=== PATIENT | female | born 1990 | race Caucasian/White ===

== ENCOUNTER 2017-07-08 08:38 | Emergency (ER) | payer MEDICAID ==
[~2017-07-08 08:38] MED LIST: ACHD5005 PO; FRS325T PO; IBP600T1 PO; IBUP-1773 PO; PREN-53 PO; PREN1TAB19 PO
== END 2017-07-08 09:56 | disposition left against medical advice (07) ==
LOC: EDUNIT# 08:38 → ER 08:40
DX: S61.411D Laceration without foreign body of right hand, subsequent encounter (principal); X58.XXXD Exposure to other specified factors, subsequent encounter

== ENCOUNTER 2018-01-31 19:13 | Emergency (ER) | payer MEDICAID ==
[~2018-01-31] VITALS: Ht 157.5 cm; Wt 59.0 kg
[2018-01-31] MEDS ORDERED: AMOX500C2 PO (19:17)
[2018-01-31] MEDS ORDERED: NAPR-915 PO (19:17)
--- NOTE | 2018-01-31 19:17 | ED EENT ---
History of Present Illness General Stated Complaint: DENTAL PAIN Source: patient Exam Limitations: no limitations History of Present Illness Date Seen by Provider: Jan 31, 2018 Time Seen by Provider: 19:23 Initial Comments To ER with right upper and right lower dental pain for 3 days duration without known cause. She sees dentist Dr. Hinson but has been unable to see him or contact him for this. She took 4 Excedrin at home and her mother gave her hydrocodone, she still has intolerable pain. No fevers chills or swelling. Timing/Duration: gradual Severity: moderate Location: mouth Associated Symptoms: tooth pain Allergies and Home Medications Allergies Coded Allergies: No Known Drug Allergies (Unverified , 06/13/11) Home Medications Amoxicillin 500 Mg Capsule, 500 MG PO TID Prescribed by: BARB CHILDS on 01/31/181916 Ibuprofen 600 Mg Tablet, 600 MG PO Q6H Prescribed by: MONTANA SHELDON on 05/03/15 1312 Naproxen 500 Mg Tablet, 500 MG PO BID Prescribed by: BARB CHILDS on 01/31/181916 Lls078/Iron Fumarate/FA/Dss 1 Each Tablet, 1 EACH PO DAILY, (Reported) Patient Home Medication List Home Medication List Reviewed: Yes Review of Systems Review of Systems Constitutional: see HPI Eyes: No Symptoms Reported Ears: No Symptoms Reported Nose: no symptoms reported Mouth: see HPI Throat: no symptoms reported Respiratory: no symptoms reported Cardiovascular: no symptoms reported Musculoskeletal: no symptoms reported Skin: no symptoms reported Neurological: No Symptoms Reported Hematologic/Lymphatic: No Symptoms Reported Immunological/Allergic: no symptoms reported Past Npkrhfy-Wltaav-Jekdqd Hx Patient Social History Recent Foreign Travel: No Contact w/Someone Who Travel: No Immunizations Up To Date Tetanus Booster (TDap): Less than 5yrs PED Vaccines UTD: Yes Seasonal Allergies Seasonal Allergies: No Past Medical History Currently Using CPAP: No Currently Using BIPAP: No Reproductive Disorders: No Female Reproductive Disorders: Denies Sexually Transmitted Disease: No HIV/AIDS: No Depression Eczema Adverse Reaction/Blood Tranf: No Family Medical History Alcoholism 19 FATHER Arthritis 19 MOTHER Asthma G8 BROTHER Cardiovascular disease G8 BROTHER (MURMUR) Diabetes mellitus 19 MOTHER Headache disorder G8 BROTHER Hypercholesterolemia 19 FATHER Hypertension 19 MOTHER Psychosocial problem 19 FATHER 19 MOTHER G8 BROTHER Respiratory disorder 19 MOTHER Severe allergy 19 MOTHER Visual disorder G8 BROTHER No Pertinent Family Hx Physical Exam Vital Signs Vital Signs - First Documented 01/31/18 19:19 Temp 97.3 Pulse 79 Resp 17 B/P (MAP) 108/70 (83) Height, Weight, BMI Height: 5'2.00" Weight: 147lbs. 4.0oz. 66.744257iq; BMI Method:Stated General Appearance: WD/WN, no apparent distress Eyes: bilateral eye normal inspection, bilateral eye PERRL, bilateral eye EOMI Ears: bilateral ear auricle normal, bilateral ear canal normal, bilateral ear TM normal Mouth/Throat: normal mouth inspection; No mandibular swelling, No maxillary swelling, No tonsillar swelling, No uvula swelling Neck: non-tender, full range of motion Respiratory: no respiratory distress, no accessory muscle use Neurologic/Psychiatric: alert, normal mood/affect, oriented x 3 Skin: normal color, warm/dry Progress/Results/Core Measures Results/Orders My Orders Orders - BARB CHILDS APRN Lidocaine/Epi 1% 1:100,000 (Xylocaine /E (01/31/18 19:30) Bupivacaine 0.5% Injection (Sensorcaine (01/31/18 19:30) Lidocaine/Epi 2% 1:100,000 (Xylocaine/Ep (01/31/18 19:30) Medications Given in ED Current Medications Medications Dose Ordered Sig/Hesham Route Start Time Stop Time Status Last Admin Dose Admin Bupivacaine HCl 1 ml ONCE ONCE INJ 01/31/18 19:30 18 19:31 DC 01/31/18 19:30 1 ML Lidocaine/ Epinephrine 2 ml ONCE ONCE INJ 01/31/18 19:30 01/31/18 19:31 DC 01/31/18 19:30 2 ML Vital Signs/I&O 18 19:19 Temp 97.3 Pulse 79 Resp 17 B/P (MAP) 108/70 (83) Departure Communication (Admissions) 193-Right Supraperiosteal nerve block using 2ml of mixture 50:50 of lidocaine 2 % with epi and 0.5% marcaine superior to tooth number 1 & 2 which are carious but without swelling to suggest drainable abscess, Right inferior alveolar nerve block with the same. . Impression Primary Impression: Pain, dental Disposition: 01 HOME, SELF-CARE Condition: Stable Departure-Patient Inst. Decision time for Depature: 19:16 Referrals: [facility] (PCP) Primary Care Physician JANE BLAIR APRN (Family) Primary Care Physician Patient Instructions: Dental Pain Add. Discharge Instructions: 1. Antibiotic as directed 2. Pain medication as directed 3. Follow-up with your dentist as soon as possible. Return to ER for any concerns. Scripts Naproxen (Naproxen) 500 Mg Tablet 500 MG PO BID, #20 TAB Prov: BARB CHILDS APRN 01/31/18 Amoxicillin (Amoxicillin) 500 Mg Capsule 500 MG PO TID, #21 CAP Prov: BARB CHILDS APRN 01/31/18 Images Mouth/Nose 1 - Caries, Tenderness 2 - Caries BARB CHILDS APRN Jan 31, 2018 19:17
--- OUTSIDE RECORDS SUMMARY | 2018-01-31 19:18 | XMS REPORT ---
Author Author BLAIRJANE Hayes Organization [facility] Address [address] [place] [address] Care Team Providers Care Channel Marketing Specialist Name Role Phone JANE BLAIR Unavailable PROBLEMS Type Condition ICD9-CM Code BRH30-PK Code Onset Dates Condition Status SNOMED Code Problem Abnormal TSH R79.89 Active 475442901 Problem History of anemia Z86.2 Active 625463719 Problem Moderate single current episode of major depressive disorder F32.1 Active 83818091 Problem Other spondylosis with myelopathy, cervical region M47.12 Active 18724628 Problem Other chronic pain G89.29 Active 80829309 Problem Chronic fatigue R53.82 Active 69357679 ALLERGIES No Information ENCOUNTERS Encounter Location Date Diagnosis [place] [id number] [address] Jan, [facility] [address] [address] Jan, [place] [address] [address] Dec, [place] [address] [place] [id number] [place] [address] Dec, [facility] [address] [address] Dec, Abnormal TSH R79.89 [facility] [address] [address] Nov, [place] [address] [address] Nov, Bee sting, accidental or unintentional, initial encounter T63.441A [place] [address] [address] Nov, Abnormal TSH R79.[address] [address] Oct, Moderate single current episode of major depressive disorder F32.1 ; History of anemia Z86.2 and Chronic fatigue R53.82 [place] [address] [address] Oct, [place] [address] [address] Oct, Moderate single current episode of major depressive disorder F32.1 ; History of anemia Z86.2 ; Nausea R11.0 ; Chronic fatigue R53.82 ; Other chronic pain G89.29 and Pain in left shoulder M25.512 [facility] [address] [address] Oct, Right foot pain M79.671 [facility] [address] [place] [address] September, Urticaria L50.9 [facility] [address] [address] September, Allergic contact dermatitis due to plants, except food L23.7 [facility] [address] [address] September, Allergic contact dermatitis due to plants, except food L23.7 [facility] [address] [place] [address] Aug, [facility] [address] [address] Jun, Bronchitis J40 [facility] [address] [address] May, Fever, unspecified fever cause R50.9 and Influenza A J10.[address] [address] Apr, [facility] [address] [place] [id number] [place] [address]- [address] Apr, [place] [address] [place] [id number] [place] [address] 82584- 8754 Apr, Routine gynecological examination Z01.419 [place] [address] [place] [id number] [place] [address]- 26[address] Feb, Allergic contact dermatitis due to plants, except food L23.7 [place] [address] [place] [id number] [place] [address] Dec, Diarrhea of presumed infectious origin A09 ; Bilious vomiting with nausea R11.14 and 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 [facility] [address] [place] [id number] [place] [address] 14 Nov, 2016 Insect bite (nonvenomous) of left upper arm, initial encounter S40.862A and Left arm cellulitis L03.114 [place] [address] [place] [id number] [place] [address]- [address] Oct, [place] [address] [place] [id number] [place] [address] 9[address]91- 6710 15 Oct, 2016 Pain of left upper extremity M79.602 ; Anesthesia of skin R20.0 and Neck pain on left side M54.2 [place] [address] [place] [id number] [place] [address]- 120[address] Oct, [place] [address] [place] [id number] [place] [address]- [address] September, [place] [address] [place] [id number] [place] [address]- [address] September, Other spondylosis with myelopathy, cervical region M47.12 [place] [address] [place] [id number] [place] [address]- 9[address] Aug, Mixed emotional features as adjustment reaction F43.23 ; Attention deficit hyperactivity disorder (ADHD), combined type F90.2 and Moderate single current episode of major depressive disorder F32.1 [facility] [address] [address] 12 Aug, 2016 Moderate single current episode of major depressive disorder F32.1 and 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 [facility] [address] [address] Aug, Mixed emotional features as adjustment reaction F43.23 and Attention deficit hyperactivity disorder (ADHD), combined type F90.2 [facility] [address] [address] Aug, Mixed emotional features as adjustment reaction F43.23 and Attention deficit hyperactivity disorder (ADHD), combined type F90.2 [place] [address] [place] [id number] [place] [address] 23585- 8657 Jul, Attention deficit hyperactivity disorder (ADHD), combined type F90.2 and Mixed emotional features as adjustment reaction F43.23 [facility] [address] [address] Mar, [facility] [address] [place] [id number] [place] [address] 94951- 8581 Mar, [facility] [id number] [place] [address] 53059- 9814 Mar, Attention deficit hyperactivity disorder (ADHD), combined type F90.2 [place] [address] [place] [id number] [place] [address] 8[address]67- 0181 Nov, Dental examination Z01.20 [facility] [address] [place] [id number] [place] [address] 9[address]94- 3[address] Nov, [place] [address] [place] [id number] [place] [address]19- [address] Oct, Well woman exam with routine gynecological exam Z01.419 ; Vaginal discharge N89.8 ; Encounter for counseling regarding contraception Z30.9 and Screening breast examination Z12.39 [facility] [address] [address] Oct, Diarrhea, unspecified type R19.7 ; Dysuria R30.0 ; Nausea R11.0 and Periumbilical abdominal pain R10.33 [facility] [address] [address] Oct, [facility] [address] [place] [id number] [place] [address] 08[address]- 9576 Oct, [facility] [address] [place] [id number] [place] [address] 28647- 6961 Oct, Mixed emotional features as adjustment reaction F43.23 and Attention deficit disorder F90.0 [facility] [address] [place] [id number] [place] [address] 39699- 1861 Oct, [facility] [address] [place] [id number] [place] [address] 46149- 7070 Aug, Mixed emotional features as adjustment reaction F43.23 and Attention deficit disorder F90.0 [facility] [address] [place] [id number] [place] [address] 7[address]- 1906 Aug, Mixed emotional features as adjustment reaction F43.23 ; Attention deficit disorder F90.0 and Wellness examination Z00.00 [facility] [address] [place] [id number] [place] [address]30- 0262 Aug, Mixed emotional features as adjustment reaction F43.23 and Attention deficit disorder F90.0 [facility] [address] [place] [address]- 2935 Jul, Mixed emotional features as adjustment reaction F43.23 [facility] [address] [place] [id number] [place] [address] 81280- 3398 Jul, Mixed emotional features as adjustment reaction F43.23 [facility] [address] [place] [id number] [place] [address] 88678- 9435 Jun, Anxiety disorder, unspecified F41.9 [facility] [address] [place] [id number] [place] [address] 07251- 1385 May, Pain in thoracic spine M54.6 [facility] [address] [place] [id number] [place] [address] 47789- 6676 Feb, Allergy, unspecified, initial encounter T78.40XA [facility] [address] [place] [id number] [place] [address]26- 4[address] Jan, [facility] [address] [address] Jan, Environmental allergies V15.09 [facility] [address] [address]- [address] Jan, Common cold 460 [facility] [address] [place] [id number] [place] [address] 75255- 9026 Oct, Shoulder pain, left 719.41 and 12 weeks gestation of V22.2 [facility] [address] [address]- [address] September, test positive V72.42 [facility] [address] [place] [id number] [place] [address] 49320- 9081 Aug, [facility] [address] [place] [id number] [place] [address] 16802- 6585 Aug, [facility] [address] [place] [id number] [place] [address] 92707- 9130 Mar, [facility] [address] [place] [id number] [place] [address] 30689- 7084 Mar, [facility] [address] [place] [id number] [place] [address] 85213- 8095 Feb, [facility] [address] [place] [id number] [place] [address] 18522- 1296 Feb, [facility] [address] [place] [id number] [place] [address] 06645- 4804 Nov, [facility] [address] [place] [id number] [place] [address]- [address] Nov, [facility] [address] [id number] [place] [address]- 0644 Oct, [facility] [place] [facility] [address] [id number] [place] [address]- 1129 Oct, [facility] [address] [id number] [place] [address]- 5915 Oct, [facility] [place] [facility] [address] [id number] [place] [address]- 3297 Oct, [facility] [address] [id number] [place] [address]- 9795 September, [facility] [address] [id number] [place] [address]- 4770 September, [facility] [address] [id number] [place] [address]- 2243 September, [facility] [address] [id number] [place] [address]- 7722 September, [facility] [place] [facility] [address] [id number] [place] [address]- 7737 Aug, [facility] [address] [id number] [place] [address]- 4644 Aug, [facility] [place] [facility] [address] [id number] [place] [address]- 2567 Aug, [facility] [place] [facility] [address] [id number] [place] [address]- 9119 Aug, [facility] [place] [facility] [address] [id number] [place] [address]- 2770 Aug, [facility] [place] [facility] [address] [id number] [place] [address]- 4474 Aug, [facility] [place] [facility] [address] [id number] [place] [address]- 6498 Aug, [facility] [place] [facility] [address] [id number] [place] [address]- 4423 Aug, [facility] [place] [facility] [address] [id number] [place] [address]- 8828 Jul, [facility] [place] [facility] [address] [id number] [place] [address]- 1620 Jul, [facility] [place] [facility] [address] [id number] [place] [address]- 2296 Aug, [facility] [place] [facility] [address] [id number] [place] [address]- 6117 Jun, [facility] [place] [facility] [address] [id number] [place] [address]- 5807 May, [facility] [place] [facility] [address] [id number] [place] [address]- 0353 Nov, [facility] [place] [facility] [address] [id number] [place] [address]- 2707 Nov, [facility] [place] [facility] [address] [id number] [place] [address]- 1162 Nov, [facility] [place] [facility] [address] [id number] [place] [address]- 9517 September, [facility] [place] [facility] [address] [id number] [place] [address]- 6734 Aug, [facility] [place] [facility] [address] [id number] [place] [address]- 5313 Aug, [facility] [place] [facility] [address] [id number] [place] [address]- 4749 Jun, [facility] [place] [facility] [address] [id number] [place] [address]- 1106 Apr, [facility] [place] [facility] [address] [id number] [place] [address]- 7904 Apr, [facility] [place] [facility] [address] [id number] [address]- 1548 Apr, [facility] [place] [facility] [address] [id number] [place] [address]- 3279 30 Mar, 2011 [facility] [place] [facility] [address] [facility] [id number] [address]- 8558 16 Mar, 2011 [facility] [place] [facility] [address] [facility] [id number] [place] [address]- 2224 08 Mar, 2011 [facility] [place] [facility] [address] [id number] [place] [address], [place] [address]- 8442 31 Feb, 2011 [facility] [place] [facility] [address] [facility] [id number] [place] [address], [place] [address]- 7583 11 Feb, 2011 [facility] [place] [facility] [address] [facility] [id number] [place] [address]- 6444 10 Feb, 2011 [facility] [place] [facility] [address] [place] [address] 18007- 1656 14 Jan, 2011 [facility] [place] [facility] [address] [facility] [id number], [place] [address]- 3531 May, [facility] [place] [facility] [address] [place] [id number] [address]- [address] 07 Apr, 2009 [facility] [place] [facility] [address] [place] [id number] [address]- 7050 Apr, [facility] [place] [facility] [address] [facility] [id number], [place] [address]- 5039 Mar, [facility] [place] [facility] [address] [facility] [id number], [place] [address]- 4563 Mar, [facility] [place] [facility] [address] [facility] [id number], [place] [address]- 6495 04 Mar, 2009 [facility] [place] [facility] [address] [facility] [id number] [address]- 5873 29 Feb, 2009 [facility] [place] [facility] [address] [facility] [id number], [place] [address]- 1137 29 Feb, 2009 [facility] [place] [facility] [address] [facility] [id number] [place] [address]- 8997 Feb, [facility] [address] [facility] [id number] [place] [address]- 8723 Feb, [facility] [address] [facility] [id number] [place] [address]- 3650 14 Feb, 2009 IMMUNIZATIONS No Known Immunizations SOCIAL HISTORY Never Assessed REASON FOR VISIT Requests return call PLAN OF CARE VITAL SIGNS MEDICATIONS Unknown Medications RESULTS No Results PROCEDURES No Known procedures INSTRUCTIONS MEDICATIONS ADMINISTERED No Known Medications MEDICAL (GENERAL) HISTORY Type Description Date Medical History Heart Murmur Medical History Winter Eczema Medical History Anemia Medical History Left shoulder injury Medical History depression Medical History Attention deficit disorder Surgical History wisdom teeth extraction Hospitalization History of daughter 09/2012 Hospitalization History 05/02/2015
--- OUTSIDE RECORDS SUMMARY | 2018-01-31 19:18 | XMS REPORT ---
Author Author BLAIRJANE Hayes Organization [facility] Address [address] [place] [address] Care Team Providers Care Quill Skinner Name Role Phone JANE BLAIR Unavailable PROBLEMS Type Condition ICD9-CM Code EZO32-DI Code Onset Dates Condition Status SNOMED Code Problem Abnormal TSH R79.89 Active 182474629 Problem History of anemia Z86.2 Active 072101696 Problem Moderate single current episode of major depressive disorder F32.1 Active 44165984 Problem Other spondylosis with myelopathy, cervical region M47.12 Active 14534346 Problem Other chronic pain G89.29 Active 21690912 Problem Chronic fatigue R53.82 Active 81470777 ALLERGIES Substance Reaction Event Type Date Status Celexa nausea Drug Allergy Nov, Active Adderall hallucinations Drug Allergy Nov, Active ENCOUNTERS Encounter Location Date Diagnosis [place] [address] [place] [id number] [place] [address]78- 1211 Jan, [place] [address] [address] Dec, [place] [id number] [place] [address] 72200- 9901 Dec, [facility] [id number] [place] [address] 87876- 7829 Dec, Abnormal TSH R79.89 [facility] [id number] [place] [address] 98935- 2407 Nov, [place] [address] [address] Nov, Bee sting, accidental or unintentional, initial encounter T63.441A [place] [address] [address]168- [address]309 Nov, Abnormal TSH R79.[address] [address]- 3467 Oct, Moderate single current episode of major depressive disorder F32.1 ; History of anemia Z86.2 and Chronic fatigue R53.82 [place] [address] [address]- 2879 Oct, [address] 6[address]- 6103 Oct, Moderate single current episode of major depressive disorder F32.1 ; History of anemia Z86.2 ; Nausea R11.0 ; Chronic fatigue R53.82 ; Other chronic pain G89.29 and Pain in left shoulder M25.512 [facility] [address] [address] Oct, Right foot pain M79.671 [facility] [address] [place] [address]08 [address] September, Urticaria L50.9 [facility] [address] [address] September, Allergic contact dermatitis due to plants, except food L23.7 [facility] [address] [address] September, Allergic contact dermatitis due to plants, except food L23.7 [facility] [address] [place] [address]916 -7142 Aug, [facility] [address] [place] [address]49 -3279 Jun, Bronchitis J40 [facility] [address] [place] [address]2077 -[address]21 May, Fever, unspecified fever cause R50.9 and Influenza A J10.[address] 91624- 6305 Apr, [facility] [id number] [place] [address] 82871- 1665 Apr, [place] [id number] [place] [address] 19756- 7949 Apr, Routine gynecological examination Z01.419 [place] [id number] [place] [address] 58297- 8361 Feb, Allergic contact dermatitis due to plants, except food L23.7 [place] [id number] [place] [address] 29975- 2018 Dec, Diarrhea of presumed infectious origin A09 ; Bilious vomiting with nausea R11.14 and 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 [facility] [id number] [place] [address]30 [address]9642 14 Nov, 2016 Insect bite (nonvenomous) of left upper arm, initial encounter S40.862A and Left arm cellulitis L03.114 [place] [id number] [place] [address] 31758- 4874 Oct, [place] [id number] [place] [address] 06630- 8549 Oct, Pain of left upper extremity M79.602 ; Anesthesia of skin R20.0 and Neck pain on left side M54.2 [place] [id number] [place] [address] 36022- 6717 Oct, [place] [id number] [place] [address] 10537- 5662 September, [place] [id number] [place] [address] 87461- 1736 September, Other spondylosis with myelopathy, cervical region M47.12 [place] [id number] [place] [address] 15766- 8708 Aug, Mixed emotional features as adjustment reaction F43.23 ; Attention deficit hyperactivity disorder (ADHD), combined type F90.2 and Moderate single current episode of major depressive disorder F32.1 [facility] [address] [address] 12 Aug, 2016 Moderate single current episode of major depressive disorder F32.1 and 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 [facility] [address], [place] [address] Aug, Mixed emotional features as adjustment reaction F43.23 and Attention deficit hyperactivity disorder (ADHD), combined type F90.2 [facility] [address] [place] [address] 35[address] Aug, Mixed emotional features as adjustment reaction F43.23 and Attention deficit hyperactivity disorder (ADHD), combined type F90.2 [facility] [address], [place] [address] Jul, Attention deficit hyperactivity disorder (ADHD), combined type F90.2 and Mixed emotional features as adjustment reaction F43.23 [facility] [address] [place] [address] Mar, [facility] [id number] [place] [address] 43856- 5870 Mar, [facility] [address], [place] [address]- 6706 Mar, Attention deficit hyperactivity disorder (ADHD), combined type F90.2 [facility] [address], [place] [address] 18[address] Nov, Dental examination Z01.20 [facility] [address], [place] [address] 8[address] Nov, [facility] [id number] [address] Oct, Well woman exam with routine gynecological exam Z01.419 ; Vaginal discharge N89.8 ; Encounter for counseling regarding contraception Z30.9 and Screening breast examination Z12.39 [facility] [id number] [address] Oct, Diarrhea, unspecified type R19.7 ; Dysuria R30.0 ; Nausea R11.0 and Periumbilical abdominal pain R10.33 [facility] [id number] [place] [address] 12592- 8830 Oct, [facility] [id number] [place] [address] 08083- 3258 Oct, [facility] [id number] [place] [address] 71295- 5947 Oct, Mixed emotional features as adjustment reaction F43.23 and Attention deficit disorder F90.0 [place] [id number] [place] [address] 84531- 1149 Oct, [facility] [id number] [place] [address] 95940- 2093 Aug, Mixed emotional features as adjustment reaction F43.23 and Attention deficit disorder F90.0 [facility] [id number] [place] [address] 87657- 2900 Aug, Mixed emotional features as adjustment reaction F43.23 ; Attention deficit disorder F90.0 and Wellness examination Z00.00 [facility] [address] [place] [address] 16236- 5566 Aug, Mixed emotional features as adjustment reaction F43.23 and Attention deficit disorder F90.0 [facility] [id number] [place] [address] 60036- 8514 Jul, Mixed emotional features as adjustment reaction F43.23 [facility] [id number] [place] [address] 07169- 0269 Jul, Mixed emotional features as adjustment reaction F43.23 [facility] [address] [place] [address] 62717- 7201 Jun, Anxiety disorder, unspecified F41.9 [facility] [id number] [place] [address] 09629- 3586 May, Pain in thoracic spine M54.6 [facility] [id number] [place] [address] 06933- 3262 Feb, Allergy, unspecified, initial encounter T78.40XA [facility] [id number] [place] [address] 27562- 0703 Jan, [facility] [address] 20150- 0294 Jan, Environmental allergies V15.09 [facility] [id number] [place] [address] 85952- 6178 Jan, Common cold 460 [facility] [address] 39422- 1516 Oct, Shoulder pain, left 719.41 and 12 weeks gestation of V22.2 [facility] [address] 63203- 3535 September, test positive V72.42 [facility] [id number] [place] [address] 73121- 0725 Aug, [facility] [id number] [place] [address] 52086- 3379 Aug, [facility] [id number] [place] [address] 45601- 7915 Mar, [facility] [id number] [place] [address] 83984- 5187 Mar, [facility] [id number] [place] [address] 57554- 8363 Feb, [facility] [id number] [place] [address] 56455- 3865 Feb, [facility] [id number] [place] [address] 46299- 5780 Nov, [facility] [id number] [place] [address] 70291- 7622 Nov, [facility] [place] [facility] [address] [id number] [place] [address]- 2442 Oct, [facility] [place] [facility] [address] [id number] [place] [address]- 6095 Oct, [facility] [place] [facility] [address] [id number] [place] [address]- 3770 Oct, [facility] [place] [facility] [address] [id number] [place] [address]- 0630 Oct, [facility] [place] [facility] [address] [id number] [place] [address]- 5917 September, [facility] [place] [facility] [address] [id number] [place] [address]- 3587 September, [facility] [place] [facility] [address] [id number] [place] [address]- 8858 September, [facility] [place] [facility] [address] [id number] [place] [address]- 6919 September, [facility] [place] [facility] [address] [id number] [place] [address]- 9223 Aug, [facility] [place] [facility] [address] [id number] [place] [address]- 9032 Aug, [facility] [place] [facility] [address] [id number] [place] [address]- 2415 Aug, [facility] [place] [facility] [address] [id number] [place] [address]- 4331 Aug, [facility] [place] [facility] [address] [id number] [place] [address]- 0565 Aug, [facility] [place] [facility] [address] [id number] [place] [address]- 4933 Aug, [facility] [place] [facility] [address] [id number] [place] [address]- 4216 Aug, [facility] [place] [facility] [address] [id number] [place] [address]- 2759 Aug, [facility] [place] [facility] [address] [id number] [place] [address]- 6306 Jul, [facility] [place] [facility] [address] [id number] [place] [address]- 6886 Jul, [facility] [place] [facility] [address] [id number] [place] [address]- 0967 Aug, [facility] [place] [facility] [address] [id number] [place] [address]- 2411 Jun, [facility] [place] [facility] [address] [id number] [place] [address]- 7216 May, [facility] [place] [facility] [address] [id number] [place] [address]- 5537 Nov, [facility] [place] [facility] [address] [id number] [place] [address]- 3473 Nov, [facility] [place] [facility] [address] [id number] [place] [address]- 6448 Nov, [facility] [place] [facility] [address] [id number] [place] [address]- 9179 September, [facility] [place] [facility] [address] [id number] [place] [address]- 4588 Aug, [facility] [place] [facility] [address] [id number] [place] [address]- 3446 Aug, [facility] [place] [facility] [address] [id number] [place] [address]- 2752 Jun, [facility] [place] [facility] [address] [id number] [place] [address]- 0372 Apr, [facility] [place] [facility] [address] [id number] [place] [address]- 3604 Apr, [facility] [place] [facility] [address] [id number] [place] [address]- 0531 Apr, [facility] [place] [facility] [address] [id number] [place] [address]- 8136 30 Mar, 2011 [facility] [place] [facility] [address] [id number] [place] [address]- 3352 16 Mar, 2011 [facility] [place] [facility] [address] [facility] [id number] [place] [address]- 9867 08 Mar, 2011 [facility] [place] [facility] [address] [id number] [place] [address]- 4002 31 Feb, 2011 [facility] [place] [facility] [address] [id number] [place] [address]- 4365 11 Feb, 2011 [facility] [place] [facility] [address] [id number] [place] [address]- 9695 10 Feb, 2011 [facility] [place] [facility] [address] [id number] [place] [address]- 6298 14 Jan, 2011 [facility] [place] [facility] [address] [id number], [place] [address]- 7472 May, [facility] [place] [facility] [address] [id number], [place] [address]- 1339 Apr, [facility] [place] [facility] [address] [id number], [place] [address]- 0886 Apr, [facility] [place] [facility] [address] [id number], [place] [address]- 4681 Mar, [facility] [place] [facility] [address] [id number], [place] [address]- 9953 10 Mar, 2009 [facility] [place] [facility] [address] [id number], [place] [address]- 0967 Mar, [facility] [place] [facility] [address] [facility] [id number], [place] [address]- 1991 29 Feb, 2009 [facility] [place] [facility] [address] [id number], [place] [address]- 5665 29 Feb, 2009 [facility] [place] [facility] [address] [facility] [id number] [place] [address] Feb, [facility] [address] [facility] [id number] [place] [address]- 1266 Feb, [facility] [address] [facility] [id number], [place] [address]- 3465 Feb, IMMUNIZATIONS No Known Immunizations SOCIAL HISTORY Never Assessed REASON FOR VISIT Bee sting on plantar surface of right foot occured at 12:00 today. Pt reports right foot swelling and right foot pain rated at 5. Self-treatment includes baking soda and elevation. [facility] PL[facility] OF CARE Activity Details Follow Up prn Reason:no improvement VITAL SIGNS Height 62.6 in 2017-11-12 Weight 130 lbs 2017-11-12 Temperature 98.6 degrees Fahrenheit 2017-11-12 Heart Rate 92 bpm 2017-11-12 Respiratory Rate 20 2017-11-12 BMI 23.32 kg/m2 2017-11-12 Blood pressure systolic 112 mmHg 2017-11-12 Blood pressure diastolic 74 mmHg 2017-11-12 MEDICATIONS Medication Instructions Dosage Frequency Start Date End Date Duration Status Allergy 25 MG Orally every 8 hrs 1 capsule as needed 8h Active RESULTS No Results PROCEDURES No Known procedures INSTRUCTIONS MEDICATIONS ADMINISTERED No Known Medications MEDICAL (GENERAL) HISTORY Type Description Date Medical History Heart Murmur Medical History Winter Eczema Medical History Anemia Medical History Left shoulder injury Medical History depression Medical History Attention deficit disorder Surgical History wisdom teeth extraction Hospitalization History of daughter 09/2012 Hospitalization History 05/02/2015
--- OUTSIDE RECORDS SUMMARY | 2018-01-31 19:19 | XMS REPORT ---
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 Helper Name Role Phone JANE BLAIR Unavailable PROBLEMS Type Condition ICD9-CM Code DNQ73-PK Code Onset Dates Condition Status SNOMED Code Problem Abnormal TSH R79.89 Active 459457096 Problem History of anemia Z86.2 Active 473761623 Problem Moderate single current episode of major depressive disorder F32.1 Active 72171516 Problem Other spondylosis with myelopathy, cervical region M47.12 Active 81116103 Problem Other chronic pain G89.29 Active 27869235 Problem Chronic fatigue R53.82 Active [id number] ALLERGIES No Information ENCOUNTERS Encounter Location Date Diagnosis [place] [address] [address] Jan, [place] [id number] [address] Dec, [place] [address] [address]- [address] Dec, Abnormal TSH R79.89 [place] [address] [place] [id number] [place] [address] 73829- 6066 Nov, [place] [address] [address] Nov, Bee sting, accidental or unintentional, initial encounter T63.441A [place] [address] [address]- 2104 Nov, Abnormal TSH R79.89 [place] [address] [place] [id number] [place] [address] 78231- 4636 Oct, Moderate single current episode of major depressive disorder F32.1 ; History of anemia Z86.2 and Chronic fatigue R53.82 [facility] [address] [address]- [address] Oct, [place] [address] [address]76- 0841 Oct, Moderate single current episode of major depressive disorder F32.1 ; History of anemia Z86.2 ; Nausea R11.0 ; Chronic fatigue R53.82 ; Other chronic pain G89.29 and Pain in left shoulder M25.512 [facility] [address] [place] [address]12 -1190 Oct, Right foot pain M79.671 [facility] [address] [place] [address] 69041 -8313 September, Urticaria L50.9 [facility] [address] [address] September, Allergic contact dermatitis due to plants, except food L23.7 [facility] [address] [place] [address]69 -6897 September, Allergic contact dermatitis due to plants, except food L23.7 [facility] [address] [place] [id number] [place] [address]2157 Aug, [facility] [address] [place] [address]53 -6185 Jun, Bronchitis J40 [facility] [address] [place] [address] 6[address]53 [address]0154 May, Fever, unspecified fever cause R50.9 and Influenza A J10.[address] [address]- [address] Apr, [address] 63967- 6294 Apr, [address] 16103- 5325 Apr, Routine gynecological examination Z01.419 [place] [address] [place] [id number] [place] [address] 39085- 7621 Feb, Allergic contact dermatitis due to plants, except food L23.7 [place] [address] [place] [id number] [place] [address] 74978- 5965 Dec, Diarrhea of presumed infectious origin A09 ; Bilious vomiting with nausea R11.14 and 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 [facility] [address] [place] [id number] [place] [address]656 -5628 Nov, Insect bite (nonvenomous) of left upper arm, initial encounter S40.862A and Left arm cellulitis L03.114 [place] [address] [place] [id number] [place] [address]23- 9450 Oct, [address] [address]- [address]36 Oct, Pain of left upper extremity M79.602 ; Anesthesia of skin R20.0 and Neck pain on left side M54.2 [place] [address] [place] [id number] [place] [address] 69731- 4782 Oct, [place] [address] [place] [id number] [place] [address] 70024- 4464 September, [place] [address] [place] [id number] [place] [address] 10601- 8098 September, Other spondylosis with myelopathy, cervical region M47.12 [place] [address] [place] [id number] [place] [address] 56023- 3464 Aug, Mixed emotional features as adjustment reaction F43.23 ; Attention deficit hyperactivity disorder (ADHD), combined type F90.2 and Moderate single current episode of major depressive disorder F32.1 [place] [address] [place] [id number] [place] [address] 95361- 8565 Aug, Moderate single current episode of major depressive disorder F32.1 and 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 [facility] [id number] [place] [address] 05701- 8820 Aug, Mixed emotional features as adjustment reaction F43.23 and Attention deficit hyperactivity disorder (ADHD), combined type F90.2 [place] [address] [place] [id number] [place] [address] 07827- 7880 Aug, Mixed emotional features as adjustment reaction F43.23 and Attention deficit hyperactivity disorder (ADHD), combined type F90.2 [place] [address] [place] [id number] [place] [address] 18442- 5765 Jul, Attention deficit hyperactivity disorder (ADHD), combined type F90.2 and Mixed emotional features as adjustment reaction F43.23 [place] [address] [place] [id number] [place] [address] 23577- 4200 Mar, [place] [address] [place] [id number] [place] [address] 51268- 4393 Mar, [place] [address] [place] [id number] [place] [address] 58862- 5562 Mar, Attention deficit hyperactivity disorder (ADHD), combined type F90.2 [place] [address] [place] [id number] [place] [address] 95708- 9013 Nov, Dental examination Z01.20 [place] [address] [place] [id number] [place] [address] 84389- 0563 Nov, [place] [address] [place] [id number] [place] [address] 28940- 4316 Oct, Well woman exam with routine gynecological exam Z01.419 ; Vaginal discharge N89.8 ; Encounter for counseling regarding contraception Z30.9 and Screening breast examination Z12.39 [facility] [id number] [place] [address]1211 -0104 Oct, Diarrhea, unspecified type R19.7 ; Dysuria R30.0 ; Nausea R11.0 and Periumbilical abdominal pain R10.33 [place] [address] [address] Oct, [facility] [address] [place] [id number] [place] [address] 47422- 4149 Oct, [facility] [address] [place] [id number] [place] [address] 82685- 1311 Oct, Mixed emotional features as adjustment reaction F43.23 and Attention deficit disorder F90.0 [facility] [address] [place] [id number] [place] [address] 01340- 4317 Oct, [facility] [id number] [place] [address] 20155- 0199 Aug, Mixed emotional features as adjustment reaction F43.23 and Attention deficit disorder F90.0 [facility] [address] [place] [id number] [place] [address] 51701- 5141 Aug, Mixed emotional features as adjustment reaction F43.23 ; Attention deficit disorder F90.0 and Wellness examination Z00.00 [facility] [address] [place] [id number] [place] [address] 97576- 4159 Aug, Mixed emotional features as adjustment reaction F43.23 and Attention deficit disorder F90.0 [facility] [address] [place] [id number] [place] [address] 23303- 2242 Jul, Mixed emotional features as adjustment reaction F43.23 [facility] [address] [place] [id number] [place] [address] 87037- 7371 Jul, Mixed emotional features as adjustment reaction F43.23 [facility] [address] [place] [id number] [place] [address] 04432- 1156 Jun, Anxiety disorder, unspecified F41.9 [facility] [address] [place] [id number] [place] [address] 45329- 1916 May, Pain in thoracic spine M54.6 [facility] [address] [place] [id number] [place] [address] 04155- 6153 05 Feb, 2015 Allergy, unspecified, initial encounter T78.40XA [facility] [address] [address]- 130[address] Jan, [facility] [address] [place] [id number] [place] [address] 54281- 3121 Jan, Environmental allergies V15.09 [facility] [address] [place] [id number] [place] [address] 53719- 8534 Jan, Common cold 460 [facility] [address] [place] [id number] [place] [address] 10715- 2715 Oct, Shoulder pain, left 719.41 and 12 weeks gestation of V22.2 [facility] [address] [place] [id number] [place] [address] 61012- 7725 September, test positive V72.42 [facility] [address] [place] [id number] [place] [address] 99099- 2008 Aug, [facility] [address] [place] [id number] [place] [address] 33864- 7260 Aug, [facility] [id number] [place] [address] 60614- 7434 Mar, [facility] [address] [place] [id number] [address]- 8652 Mar, [facility] [address] [address]- 9453 Feb, [facility] [address] [address]- 7835 Feb, [facility] [address] [address]- 9488 Nov, [facility] [address] [address]- 4419 Nov, [facility] [address] [address]- 7883 Oct, [facility] [place] [facility] [address] [id number] [place] [address]- 7896 Oct, [facility] [address] [id number] [place] [address]- 3880 Oct, [facility] [address] [id number] [place] [address]- 5261 Oct, [facility] [address] [id number] [place] [address]- 5253 September, [facility] [address] [id number] [place] [address]- 4857 September, [facility] [address] [id number] [place] [address]- 9078 September, [facility] [address] [id number] [place] [address]- 8158 September, [facility] [address] [id number] [place] [address]- 1141 Aug, [facility] [address] [id number] [place] [address]- 8131 Aug, [facility] [address] [id number] [place] [address]- 6063 Aug, [facility] [address] [id number] [place] [address]- 9302 Aug, [facility] [place] [facility] [address] [id number] [place] [address]- 9022 Aug, [facility] [place] [facility] [address] [id number] [place] [address]- 5309 Aug, [facility] [place] [facility] [address] [id number] [place] [address]- 1900 Aug, [facility] [place] [facility] [address] [id number] [place] [address]- 8100 Aug, [facility] [place] [facility] [address] [id number] [place] [address]- 7373 Jul, [facility] [place] [facility] [address] [id number] [place] [address]- 0655 Jul, [facility] [place] [facility] [address] [id number] [place] [address]- 8282 Aug, [facility] [place] [facility] [address] [id number] [place] [address]- 1135 Jun, [facility] [place] [facility] [address] [id number] [place] [address]- 5084 May, [facility] [place] [facility] [address] [id number] [place] [address]- 3579 Nov, [facility] [place] [facility] [address] [id number] [place] [address]- 8726 Nov, [facility] [place] [facility] [address] [id number] [place] [address]- 8100 Nov, [facility] [place] [facility] [address] [id number] [place] [address]- 7795 September, [facility] [place] [facility] [address] [id number] [place] [address]- 5540 Aug, [facility] [place] [facility] [address] [id number] [place] [address]- 7311 Aug, [facility] [place] [facility] [address] [id number] [place] [address]- 1772 Jun, [facility] [place] [facility] [address] [id number] [place] [address]- 5325 Apr, [facility] [place] [facility] [address] [id number] [place] [address]- 1451 Apr, [facility] [place] [facility] [address] [id number] [place] [address]- 6812 Apr, [facility] [place] [facility] [address] [id number] [place] [address]- 2513 Mar, [facility] [place] [facility] [address] [id number], [place] [address]- 6769 16 Mar, 2011 [facility] [place] [facility] [address] [id number] [place] [address]- 8510 08 Mar, 2011 [facility] [place] [facility] [address] [facility] [id number] [address]- 7838 31 Feb, 2011 [facility] [place] [facility] [address] [facility] [id number] [place] [address]- 9088 11 Feb, 2011 [facility] [place] [facility] [address] [facility] [id number] [place] [address] 71879- 3512 10 Feb, 2011 [facility] [place] [facility] [address] [facility] [id number] [place] [address], [place] [address]- 0793 14 Jan, 2011 [facility] [place] [facility] [address] [facility] [id number], [place] [address]- 9508 13 May, 2009 [facility] [place] [facility] [address] [place] [id number] [place] [address] 20024- 0075 07 Apr, 2009 [facility] [place] [facility] [address] [facility] [id number], [place] [address]- 2589 Apr, [facility] [place] [facility] [address] [place] [id number], [place] [address]- 4252 20 Mar, 2009 [facility] [place] [facility] [address] [place] [id number], [place] [address]- 5727 10 Mar, 2009 [facility] [place] [facility] [address] [facility] [id number], [place] [address]- 7088 04 Mar, 2009 [facility] [place] [facility] [address] [facility] [id number], [place] [address]- 3398 29 Feb, 2009 [facility] [place] [facility] [address] [facility] [id number], [place] [address]- 0737 29 Feb, 2009 [facility] [place] [facility] [address] [facility] [id number], [place] [address]- 1225 28 Feb, 2009 [facility] [place] [facility] [address] [facility] [id number], [place] [address]- 4947 27 Feb, 2009 [facility] [place] [facility] [address] [facility] [id number] [place] [address]- 4604 Feb, IMMUNIZATIONS No Known Immunizations SOCIAL HISTORY Never Assessed REASON FOR VISIT Returned call PLAN OF CARE VITAL SIGNS MEDICATIONS [...]
--- OUTSIDE RECORDS SUMMARY | 2018-01-31 19:19 | XMS REPORT ---
Author Author BLAIRJANE Hayes Organization [facility] Address [address] [place] [address] Care Team Providers Care Amphibious Operations Officer Name Role Phone JANE BLAIR Unavailable PROBLEMS Type Condition ICD9-CM Code [id number] Code Onset Dates Condition Status SNOMED Code Problem Abnormal TSH R79.89 Active 225072670 Problem History of anemia Z86.2 Active 227241494 Problem Moderate single current episode of major depressive disorder F32.1 Active 62348733 Problem Other spondylosis with myelopathy, cervical region M47.12 Active 24074042 Problem Other chronic pain G89.29 Active 20898012 Problem Chronic fatigue R53.82 Active [id number] ALLERGIES No Information ENCOUNTERS Encounter Location Date Diagnosis [place] [id number] [address] Jan, [facility] [address] [address] Dec, [place] [address] [address] Dec, [facility] [address] [place] [id number] [place] [address] 30427- 1391 Dec, Abnormal TSH R79.89 [facility] [address] [place] [id number] [place] [address] 03697- 6755 Nov, [facility] [address] [address]- [address]83 Nov, Bee sting, accidental or unintentional, initial encounter T63.441A [facility] [address] [place] [id number] [place] [address] 01257- 7377 Nov, Abnormal TSH R79.89 [place] [address] [address]- 6[address] Oct, Moderate single current episode of major depressive disorder F32.1 ; History of anemia Z86.2 and Chronic fatigue R53.82 [place] [address] [place] [id number] [place] [address] 14835- 8601 Oct, [place] [address] [place] [id number] [place] [address] 59212- 8019 Oct, Moderate single current episode of major depressive disorder F32.1 ; History of anemia Z86.2 ; Nausea R11.0 ; Chronic fatigue R53.82 ; Other chronic pain G89.29 and Pain in left shoulder M25.512 [facility] [address] [place] [address] -0110 Oct, Right foot pain M79.671 [facility] [address] [address] September, Urticaria L50.9 [facility] [address] [place] [address] September, Allergic contact dermatitis due to plants, except food L23.7 [facility] [address] [place] [id number] [place] [address] 69[address]58[address] September, Allergic contact dermatitis due to plants, except food L23.7 [facility] [place] [id number] [place] [address]209 -1417 Aug, [facility] [address] [place] [address] 59205 -8593 Jun, Bronchitis J40 [facility] [address] [address]362 14 May, 2017 Fever, unspecified fever cause R50.9 and Influenza A J10.1 [place] [id number] [place] [address] 96364- 6999 13 Apr, 2017 [place] [address] [address] Apr, [place] [address] [place] [id number] [place] [address] 75533- 9143 Apr, Routine gynecological examination Z01.419 [place] [address] [place] [id number] [place] [address] 69226- 7691 Feb, Allergic contact dermatitis due to plants, except food L23.7 [place] [address] [address]- 9025 Dec, Diarrhea of presumed infectious origin A09 ; Bilious vomiting with nausea R11.14 and 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 [facility] [address] [address] Nov, Insect bite (nonvenomous) of left upper arm, initial encounter S40.862A and Left arm cellulitis L03.114 [place] [address] 00449- 3545 Oct, [place] [address] [place] [id number] [place] [address] 85528- 2800 15 Oct, 2016 Pain of left upper extremity M79.602 ; Anesthesia of skin R20.0 and Neck pain on left side M54.2 [place] [address] [place] [id number] [place] [address] 86882- 2574 Oct, [place] [address] [place] [id number] [place] [address] 28397- 1561 September, [place] [address] [place] [id number] [place] [address] 47766- 0399 September, Other spondylosis with myelopathy, cervical region M47.12 [place] [address] 15349- 7795 Aug, Mixed emotional features as adjustment reaction F43.23 ; Attention deficit hyperactivity disorder (ADHD), combined type F90.2 and Moderate single current episode of major depressive disorder F32.1 [place] [address] [place] [address] Aug, Moderate single current episode of major depressive disorder F32.1 and 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 [place] [address] [place] [id number] [place] [address] 35614- 0671 Aug, Mixed emotional features as adjustment reaction F43.23 and Attention deficit hyperactivity disorder (ADHD), combined type F90.2 [place] [address] [place] [id number] [place] [address] 38962- 2967 Aug, Mixed emotional features as adjustment reaction F43.23 and Attention deficit hyperactivity disorder (ADHD), combined type F90.2 [place] [address] [place] [id number] [place] [address] 63327- 2972 Jul, Attention deficit hyperactivity disorder (ADHD), combined type F90.2 and Mixed emotional features as adjustment reaction F43.23 [place] [address] [place] [id number] [place] [address] 02851- 1875 Mar, [place] [address] [place] [id number] [place] [address] 22540- 5972 Mar, [place] [address] [place] [id number] [place] [address] 28641- 9938 Mar, Attention deficit hyperactivity disorder (ADHD), combined type F90.2 [place] [address] [place] [id number] [place] [address] 80678- 4493 Nov, Dental examination Z01.20 [place] [address] [place] [id number] [place] [address] 71887- 8468 Nov, [place] [address] [place] [id number] [place] [address] 24298- 6657 Oct, Well woman exam with routine gynecological exam Z01.419 ; Vaginal discharge N89.8 ; Encounter for counseling regarding contraception Z30.9 and Screening breast examination Z12.39 [facility] [address] [place] [address] 64627 -4267 Oct, Diarrhea, unspecified type R19.7 ; Dysuria R30.0 ; Nausea R11.0 and Periumbilical abdominal pain R10.33 [facility] [address] [place] [id number] [place] [address] 22654- 5627 Oct, [facility] [address] [place] [id number] [place] [address] 77858- 4995 Oct, [facility] [address] [place] [id number] [place] [address] 37638- 0957 Oct, Mixed emotional features as adjustment reaction F43.23 and Attention deficit disorder F90.0 [facility] [address] [place] [id number] [place] [address] 58339- 8259 Oct, [place] [address] [place] [id number] [place] [address] 93817- 5162 Aug, Mixed emotional features as adjustment reaction F43.23 and Attention deficit disorder F90.0 [place] [address] [place] [id number] [place] [address] 42938- 4648 Aug, Mixed emotional features as adjustment reaction F43.23 ; Attention deficit disorder F90.0 and Wellness examination Z00.00 [place] [address] [place] [id number] [place] [address] 17195- 5841 Aug, Mixed emotional features as adjustment reaction F43.23 and Attention deficit disorder F90.0 [place] [address] [place] [id number] [place] [address] 27701- 9701 Jul, Mixed emotional features as adjustment reaction F43.23 [place] [address] [place] [id number] [place] [address] 40701- 4361 Jul, Mixed emotional features as adjustment reaction F43.23 [place] [address] [place] [id number] [place] [address] 42011- 0184 Jun, Anxiety disorder, unspecified F41.9 [place] [address] [place] [id number] [place] [address] 53219- 2659 May, Pain in thoracic spine M54.6 [place] [address] [place] [id number] [address]- 8[address] Feb, Allergy, unspecified, initial encounter T78.40XA [facility] [address] [place] [id number] [place] [address] 72034- 4041 Jan, [facility] [address] [place] [id number] [place] [address] 32685- 5457 Jan, Environmental allergies V15.09 [facility] [address] [place] [id number] [place] [address] 69081- 7708 Jan, Common cold 460 [facility] [address] [place] [id number] [place] [address] 45997- 1531 Oct, Shoulder pain, left 719.41 and 12 weeks gestation of V22.2 [facility] [address] [place] [id number] [place] [address] 88967- 5999 September, test positive V72.42 [facility] [address] [place] [id number] [place] [address] 76047- 2852 Aug, [facility] [address] [place] [id number] [place] [address] 93561- 2265 Aug, [facility] [address] [place] [id number] [address]- 4638 Mar, [facility] [address] [place] [address]- 8557 Mar, [facility] [address] [place] [address]- 0133 Feb, [facility] [address] [place] [address]- 8368 Feb, [facility] [address] 7647 Nov, [facility] [address] [place] [address]- 5441 Nov, [facility] [place] [facility] [address] [id number] [place] [address]- 6554 Oct, [facility] [address] [id number] [place] [address]- 5989 Oct, [facility] [address] [id number] [place] [address]- 2202 Oct, [facility] [address] [id number] [place] [address]- 7042 Oct, [facility] [address] [id number] [place] [address]- 1176 September, [facility] [address] [id number] [place] [address]- 3903 September, [facility] [facility] [address] [id number] [place] [address]- 2420 September, [facility] [address] [id number] [place] [address]- 9357 September, [facility] [address] [id number] [place] [address]- 6802 Aug, [facility] [place] [facility] [address] [id number] [place] [address]- 7282 Aug, [facility] [address] [id number] [place] [address]- 9093 Aug, [facility] [place] [facility] [address] [id number] [place] [address]- 9459 Aug, [facility] [place] [facility] [address] [id number] [place] [address]- 5197 Aug, [facility] [place] [facility] [address] [id number] [place] [address]- 6988 Aug, [facility] [place] [facility] [address] [id number] [place] [address]- 6705 Aug, [facility] [place] [facility] [address] [id number] [place] [address]- 2569 Aug, [facility] [place] [facility] [address] [id number] [place] [address]- 5682 Jul, [facility] [place] [facility] [address] [id number] [place] [address]- 1996 Jul, [facility] [place] [facility] [address] [id number] [place] [address]- 5349 Aug, [facility] [place] [facility] [address] [id number] [place] [address]- 9792 Jun, [facility] [place] [facility] [address] [id number] [place] [address]- 9616 May, [facility] [place] [facility] [address] [id number] [place] [address]- 3657 Nov, [facility] [place] [facility] [address] [id number] [place] [address]- 3490 Nov, [facility] [place] [facility] [address] [id number] [place] [address]- 3962 Nov, [facility] [place] [facility] [address] [id number] [place] [address]- 7269 September, [facility] [place] [facility] [address] [id number] [place] [address]- 0950 Aug, [facility] [place] [facility] [address] [id number] [place] [address]- 2169 Aug, [facility] [place] [facility] [address] [id number] [place] [address]- 7842 Jun, [facility] [place] [facility] [address] [id number] [place] [address]- 8545 Apr, [facility] [place] [facility] [address] [id number] [place] [address]- 3046 Apr, [facility] [place] [facility] [address] [id number] [place] [address]- 4214 Apr, [facility] [place] [facility] [address] [id number], [place] [address]- 7777 30 Mar, 2011 [facility] [place] [facility] [address] [id number] [place] [address]- 6838 16 Mar, 2011 [facility] [place] [facility] [address] [facility] [id number], [place] [address]- 9518 08 Mar, 2011 [facility] [place] [facility] [address] [facility] [id number] [place] [address]- 3581 31 Feb, 2011 [facility] [place] [facility] [id number] [place] [address] 13076- 4544 11 Feb, 2011 [facility] [place] [facility] [address] [facility] [id number] [place] [address], [place] [address]- 1659 10 Feb, 2011 [facility] [place] [facility] [address] [facility] [id number] [place] [address]- 2589 14 Jan, 2011 [facility] [place] [facility] [id number] [place] [address] 24056- 3352 13 May, 2009 [facility] [place] [facility] [address] [facility] [id number], [place] [address]- 5906 07 Apr, 2009 [facility] [place] [facility] [address] [place] [id number] [address]- 0305 Apr, [facility] [place] [facility] [address] [place] [id number] [address]- 3773 20 Mar, 2009 [facility] [place] [facility] [address] [facility] [id number], [place] [address]- 8123 Mar, [facility] [place] [facility] [address] [facility] [id number], [place] [address]- 8987 04 Mar, 2009 [facility] [place] [facility] [address] [facility] [id number], [place] [address]- 4242 29 Feb, 2009 [facility] [place] [facility] [address] [facility] [id number], [place] [address]- 5828 29 Feb, 2009 [facility] [place] [facility] [address] [facility] [id number], [place] [address]- 7263 28 Feb, 2009 [facility] [place] [facility] [address] [facility] [id number] [place] [address]- 3499 Feb, [facility] [address] [facility] [id number] [place] [address]- 3030 Feb, IMMUNIZATIONS No Known Immunizations SOCIAL HISTORY Never Assessed REASON FOR VISIT per lab results PLAN OF CARE VITAL SIGNS MEDICATIONS Unknown [...]
--- OUTSIDE RECORDS SUMMARY | 2018-01-31 19:19 | XMS REPORT ---
Author Author BLAIRJANE Hayes Organization [facility] Address [address] [place] [address] Care Team Providers Care Feeder/Folder Name Role Phone JANE BLAIR Unavailable PROBLEMS Type Condition ICD9-CM Code HML05-JO Code Onset Dates Condition Status SNOMED Code Problem Abnormal TSH R79.89 Active 065059042 Problem History of anemia Z86.2 Active 803811016 Problem Moderate single current episode of major depressive disorder F32.1 Active 90081650 Problem Other spondylosis with myelopathy, cervical region M47.12 Active 65178855 Problem Other chronic pain G89.29 Active 39266175 Problem Chronic fatigue R53.82 Active 03482623 ALLERGIES Substance Reaction Event Type Date Status Celexa nausea Drug Allergy Oct, Active Adderall hallucinations Drug Allergy Oct, Active ENCOUNTERS Encounter Location Date Diagnosis [place] [id number] [address] Jan, [place] [address] [address]- [address] Dec, [facility] [address] [place] [id number] [place] [address] 72906- 4383 Dec, Abnormal TSH R79.89 [facility] [address] [address]- [address] Nov, [facility] [address] [place] [id number] [place] [address] 15155- 6301 Nov, Bee sting, accidental or unintentional, initial encounter T63.441A [facility] [address] [place] [id number] [place] [address] 28766- 3399 Nov, Abnormal TSH R79.89 [facility] [address] [address]- [address] Oct, Moderate single current episode of major depressive disorder F32.1 ; History of anemia Z86.2 and Chronic fatigue R53.82 [place] [address] [place] [id number] [place] [address] 23173- 9997 Oct, [place] [address] [place] [id number] [place] [address] 40625- 1572 Oct, Moderate single current episode of major depressive disorder F32.1 ; History of anemia Z86.2 ; Nausea R11.0 ; Chronic fatigue R53.82 ; Other chronic pain G89.29 and Pain in left shoulder M25.512 [facility] [address] [place] [address]261 -5611 Oct, Right foot pain M79.671 [facility] [address] [place] [address] 73792 -5905 September, Urticaria L50.9 [facility] [address] [place] [address]85 -1893 September, Allergic contact dermatitis due to plants, except food L23.7 [facility] [address] [place] [address] 23490 -7919 September, Allergic contact dermatitis due to plants, except food L23.7 [facility] [address] [place] [id number] [place] [address] 02346 -5699 Aug, [facility] [address] [place] [address] 23642 -1366 Jun, Bronchitis J40 [facility] [address] [place] [id number] [place] [address] 28002 -7112 May, Fever, unspecified fever cause R50.9 and Influenza A J10.1 [place] [address] [place] [id number] [place] [address] 81721- 2871 Apr, [place] [address] [address]- 4927 Apr, [place] [address] [place] [id number] [place] [address] 86601- 6695 Apr, Routine gynecological examination Z01.419 [place] [address] 13735- 0342 Feb, Allergic contact dermatitis due to plants, except food L23.7 [place] [address] 81912- 7363 Dec, Diarrhea of presumed infectious origin A09 ; Bilious vomiting with nausea R11.14 and 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 [facility] [address] [address] Nov, Insect bite (nonvenomous) of left upper arm, initial encounter S40.862A and Left arm cellulitis L03.[address] [address]- [address]41 Oct, [place] [address] 94419- 7673 Oct, Pain of left upper extremity M79.602 ; Anesthesia of skin R20.0 and Neck pain on left side M54.2 [place] [address] [place] [id number] [place] [address] 95612- 1873 Oct, [place] [address] [place] [id number] [place] [address] 95582- 7895 September, [place] [address] 71658- 6696 September, Other spondylosis with myelopathy, cervical region M47.[address] [address]91- 7101 Aug, Mixed emotional features as adjustment reaction F43.23 ; Attention deficit hyperactivity disorder (ADHD), combined type F90.2 and Moderate single current episode of major depressive disorder F32.[address] [address]- 1397 Aug, Moderate single current episode of major depressive disorder F32.1 and 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 [place] [address] [place] [id number] [place] [address] 51793- 8577 Aug, Mixed emotional features as adjustment reaction F43.23 and Attention deficit hyperactivity disorder (ADHD), combined type F90.2 [place] [address] [place] [id number] [place] [address] 87355- 6470 Aug, Mixed emotional features as adjustment reaction F43.23 and Attention deficit hyperactivity disorder (ADHD), combined type F90.2 [place] [address] [place] [id number] [place] [address] 75660- 6048 Jul, Attention deficit hyperactivity disorder (ADHD), combined type F90.2 and Mixed emotional features as adjustment reaction F43.23 [place] [address] [place] [id number] [place] [address] 95918- 8686 Mar, [facility] [address] [place] [id number] [place] [address] 26557- 7458 Mar, [place] [address] [place] [id number] [place] [address] 85336- 3154 Mar, Attention deficit hyperactivity disorder (ADHD), combined type F90.2 [place] [address] [place] [id number] [place] [address] 52108- 8912 Nov, Dental examination Z01.20 [place] [address] [place] [id number] [place] [address] 21059- 5213 Nov, [place] [address] [place] [id number] [place] [address] 57616- 0951 Oct, Well woman exam with routine gynecological exam Z01.419 ; Vaginal discharge N89.8 ; Encounter for counseling regarding contraception Z30.9 and Screening breast examination Z12.39 [facility] [address] [place] [address] 27141 -5226 Oct, Diarrhea, unspecified type R19.7 ; Dysuria R30.0 ; Nausea R11.0 and Periumbilical abdominal pain R10.33 [facility] [address] [place] [id number] [place] [address] 37426- 0049 Oct, [facility] [address] [place] [id number] [place] [address] 14886- 4889 Oct, [facility] [address] [place] [id number] [place] [address] 49524- 0790 Oct, Mixed emotional features as adjustment reaction F43.23 and Attention deficit disorder F90.0 [facility] [address] [place] [id number] [place] [address] 21174- 7880 Oct, [facility] [address] [place] [id number] [place] [address] 99580- 5563 Aug, Mixed emotional features as adjustment reaction F43.23 and Attention deficit disorder F90.0 [facility] [address] [place] [id number] [place] [address] 56717- 9042 Aug, Mixed emotional features as adjustment reaction F43.23 ; Attention deficit disorder F90.0 and Wellness examination Z00.00 [facility] [address] [place] [id number] [place] [address] 29627- 6658 Aug, Mixed emotional features as adjustment reaction F43.23 and Attention deficit disorder F90.0 [facility] [address] [place] [id number] [place] [address] 08302- 7510 Jul, Mixed emotional features as adjustment reaction F43.23 [facility] [address] [place] [id number] [place] [address] 47747- 1563 Jul, Mixed emotional features as adjustment reaction F43.23 [place] [address] [place] [id number] [place] [address] 50695- 4833 Jun, Anxiety disorder, unspecified F41.9 [facility] [address] [place] [id number] [place] [address] 31883- 9279 May, Pain in thoracic spine M54.6 [facility] [address] [place] [id number] [place] [address] 92971- 1951 Feb, Allergy, unspecified, initial encounter T78.40XA [facility] [address] [place] [id number] [place] [address] 89840- 3599 Jan, [facility] [address] [place] [id number] [place] [address] 93877- 4324 Jan, Environmental allergies V15.09 [facility] [address] [place] [id number] [place] [address] 07317- 0465 Jan, Common cold 460 [facility] [address] [place] [id number] [place] [address] 46284- 1629 Oct, Shoulder pain, left 719.41 and 12 weeks gestation of V22.2 [facility] [address] [place] [id number] [place] [address] 92709- 0611 September, test positive V72.42 [facility] [address] [place] [id number] [place] [address] 75206- 1595 Aug, [facility] [address] [place] [id number] [place] [address] 25761- 8702 Aug, [facility] [address] [place] [id number] [place] [address] 35371- 7798 Mar, [facility] [address] [place] [address] 92944- 8643 Mar, [facility] [address] [place] [id number] [place] [address] 50656- 2426 Feb, [facility] [address] [place] [id number] [place] [address] 54111- 4288 Feb, [facility] [address] [place] [id number] [place] [address] 331760- 8615 Nov, [facility] [address] [place] [id number] [place] [address] 26758- 8565 Nov, [facility] [address] [place] [id number] [place] [address] 21312- 2170 Oct, [facility] [place] [facility] [address] [id number] [place] [address]- 2935 Oct, [facility] [place] [facility] [address] [id number] [place] [address]- 5710 Oct, [facility] [place] [facility] [address] [id number] [place] [address]- 1028 Oct, [facility] [place] [facility] [address] [id number] [place] [address]- 9294 September, [facility] [place] [facility] [address] [id number] [place] [address]- 1584 September, [facility] [place] [facility] [address] [id number] [place] [address]- 0474 September, [facility] [place] [facility] [address] [id number] [place] [address]- 4490 September, [facility] [place] [facility] [address] [id number] [place] [address]- 0693 Aug, [facility] [place] [facility] [address] [id number] [place] [address]- 9615 Aug, [facility] [place] [facility] [address] [id number] [place] [address]- 2245 Aug, [facility] [place] [facility] [address] [id number] [place] [address]- 5552 Aug, [facility] [place] [facility] [address] [id number] [place] [address]- 4208 Aug, [facility] [place] [facility] [address] [id number] [place] [address]- 9468 Aug, [facility] [place] [facility] [address] [id number] [place] [address]- 7615 Aug, [facility] [place] [facility] [address] [id number] [place] [address]- 7971 Aug, [facility] [place] [facility] [address] [id number] [place] [address]- 0041 Jul, [facility] [place] [facility] [address] [id number] [place] [address]- 7139 Jul, [facility] [place] [facility] [address] [id number] [place] [address]- 8667 Aug, [facility] [place] [facility] [address] [id number] [place] [address]- 6549 Jun, [facility] [place] [facility] [address] [id number] [place] [address]- 8653 May, [facility] [place] [facility] [address] [id number] [place] [address]- 3234 Nov, [facility] [place] [facility] [address] [id number] [place] [address]- 4600 Nov, [facility] [place] [facility] [address] [id number] [place] [address]- 2990 Nov, [facility] [place] [facility] [address] [id number] [place] [address]- 7908 September, [facility] [place] [facility] [address] [id number] [place] [address]- 6965 Aug, [facility] [place] [facility] [address] [id number] [place] [address]- 7309 Aug, [facility] [place] [facility] [address] [id number] [place] [address]- 9098 Jun, [facility] [place] [facility] [address] [id number] [place] [address]- 0103 Apr, [facility] [place] [facility] [address] [id number] [place] [address]- 0323 Apr, [facility] [place] [facility] [address] [id number] [place] [address]- 0081 Apr, [facility] [place] [facility] [address] [id number] [place] [address]- 8395 30 Mar, 2011 [facility] [place] [facility] [address] [id number] [place] [address]- 3522 16 Mar, 2011 [facility] [place] [facility] [address] [id number], [place] [address]- 4655 08 Mar, 2011 [facility] [place] [facility] [address] [facility] [id number] [place] [address]- 5582 31 Feb, 2011 [facility] [place] [facility] [address] [id number], [place] [address]- 8089 11 Feb, 2011 [facility] [place] [facility] [address] [id number] [place] [address]- 6092 10 Feb, 2011 [facility] [place] [facility] [address] [id number], [place] [address]- 0420 14 Jan, 2011 [facility] [place] [facility] [address] [id number], [place] [address]- 1972 13 May, 2009 [facility] [place] [facility] [address] [id number], [place] [address]- 8930 07 Apr, 2009 [facility] [place] [facility] [address] [id number], [place] [address]- 6310 Apr, [facility] [place] [facility] [address] [facility] [id number], [place] [address]- 2249 20 Mar, 2009 [facility] [place] [facility] [address] [id number][place] [address]- 7583 Mar, [facility] [place] [facility] [address] [id number], [place] [address]- 4201 04 Mar, 2009 [facility] [place] [facility] [address] [id number], [place] [address]- 4542 29 Feb, 2009 [facility] [place] [facility] [address] [facility] [id number], [place] [address]- 3800 29 Feb, 2009 [facility] [place] [facility] [address] [facility] [id number], [place] [address]- 9333 28 Feb, 2009 [facility] [place] [facility] [address] [facility] [id number] [place] [address]- 4010 Feb, [facility] [address] [facility] [id number] [place] [address]- 4394 Feb, IMMUNIZATIONS No Known Immunizations SOCIAL HISTORY Never Assessed REASON FOR VISIT Transition of Care-KRISTIN Eason PLAN OF CARE Activity Details Follow Up 6 Months, prn Reason:chm VITAL SIGNS Height 62.6 in 2017-11-02 Weight 130.2 lbs 2017-11-02 Temperature 98.4 degrees Fahrenheit 2017-11-02 Heart Rate 80 bpm 2017-11-02 Respiratory Rate 20 2017-11-02 BMI 23.36 kg/m2 2017-11-02 Blood pressure systolic 110 mmHg 2017-11-02 Blood pressure diastolic 68 mmHg 2017-11-02 MEDICATIONS Medication Instructions Dosage Frequency Start Date End Date Duration Status Allergy 25 MG Orally every 8 hrs 1 capsule as needed 8h Not-Taking RESULTS Name Result Date Reference Range TEST, URINE (IN HOUSE) 2017-11-02 RESULTS Negative Lot # [id number] Control + Exp date 05/01 PROCEDURES Procedure Date Ordered Result Body Site URINE TEST November 02, 2017 INSTRUCTIONS MEDICATIONS ADMINISTERED No Known Medications MEDICAL (GENERAL) HISTORY Type Description Date Medical History Heart Murmur Medical History Winter Eczema Medical History Anemia Medical History Left shoulder injury Medical History depression Medical History Attention deficit disorder Surgical History wisdom teeth extraction Hospitalization History of daughter 09/2012 Hospitalization History 05/02/2015
--- OUTSIDE RECORDS SUMMARY | 2018-01-31 19:19 | XMS REPORT ---
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 Name Role Phone JANE BLAIR Unavailable PROBLEMS Type Condition ICD9-CM Code ZTN31-HT Code Onset Dates Condition Status SNOMED Code Problem Abnormal TSH R79.89 Active 922207329 Problem History of anemia Z86.2 Active 808999727 Problem Moderate single current episode of major depressive disorder F32.1 Active 63657476 Problem Other spondylosis with myelopathy, cervical region M47.12 Active 64995719 Problem Other chronic pain G89.29 Active 77541593 Problem Chronic fatigue R53.82 Active 72809724 ALLERGIES No Information ENCOUNTERS Encounter Location Date Diagnosis [place] [address] [address] Jan, [place] [address] [address]- [address] Dec, [place] [address] 65666- [address]288 Dec, Abnormal TSH R79.89 [place] [address] [place] [id number] [place] [address] 11884- 5012 Nov, [place] [address] [address] Nov, Bee sting, accidental or unintentional, initial encounter T63.441A [place] [address] 36692- 5103 Nov, Abnormal TSH R79.89 [place] [address] [place] [id number] [place] [address] 43290- 3357 Oct, Moderate single current episode of major depressive disorder F32.1 ; History of anemia Z86.2 and Chronic fatigue R53.82 [facility] [address] [address]- [address] Oct, [place] [address] 37148- 9809 Oct, Moderate single current episode of major depressive disorder F32.1 ; History of anemia Z86.2 ; Nausea R11.0 ; Chronic fatigue R53.82 ; Other chronic pain G89.29 and Pain in left shoulder M25.512 [facility] [address] [place] [address]28 -6130 Oct, Right foot pain M79.671 [facility] [address] [place] [address]5419 -4695 September, Urticaria L50.9 [facility] [address] [address] September, Allergic contact dermatitis due to plants, except food L23.7 [facility] [address] [place] [address]22 [address]85 September, Allergic contact dermatitis due to plants, except food L23.7 [facility] [address] [place] [id number] [place] [address]33 -5471 Aug, [facility] [address] [place] [address]188 -5345 Jun, Bronchitis J40 [facility] [address] [place] [address]9849 -[address]36 May, Fever, unspecified fever cause R50.9 and Influenza A J10.[address] [address]- [address] Apr, [address] [address]- 3969 Apr, [address] 38778- 5564 Apr, Routine gynecological examination Z01.419 [place] [address] [place] [id number] [place] [address] 23912- 3437 Feb, Allergic contact dermatitis due to plants, except food L23.7 [place] [address] [place] [id number] [place] [address] 58668- 4718 Dec, Diarrhea of presumed infectious origin A09 ; Bilious vomiting with nausea R11.14 and 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 [facility] [address] [place] [id number] [place] [address] 86422 -5857 Nov, Insect bite (nonvenomous) of left upper arm, initial encounter S40.862A and Left arm cellulitis L03.114 [place] [address] [place] [id number] [place] [address]26- 1960 Oct, [address] [address]- [address] Oct, Pain of left upper extremity M79.602 ; Anesthesia of skin R20.0 and Neck pain on left side M54.2 [place] [address] [place] [id number] [place] [address] 28837- 9249 Oct, [place] [address] [place] [id number] [place] [address] 45305- 2149 September, [place] [address] [place] [id number] [place] [address] 65274- 7928 September, Other spondylosis with myelopathy, cervical region M47.12 [place] [address] [place] [id number] [place] [address] 06151- 7726 Aug, Mixed emotional features as adjustment reaction F43.23 ; Attention deficit hyperactivity disorder (ADHD), combined type F90.2 and Moderate single current episode of major depressive disorder F32.1 [place] [address] [place] [id number] [place] [address] 68715- 7384 Aug, Moderate single current episode of major depressive disorder F32.1 and 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 [facility] [address] [place] [address] 84085- 8733 Aug, Mixed emotional features as adjustment reaction F43.23 and Attention deficit hyperactivity disorder (ADHD), combined type F90.2 [place] [address] [place] [id number] [place] [address] 90560- 9864 Aug, Mixed emotional features as adjustment reaction F43.23 and Attention deficit hyperactivity disorder (ADHD), combined type F90.2 [place] [address] [place] [id number] [place] [address] 43492- 8661 Jul, Attention deficit hyperactivity disorder (ADHD), combined type F90.2 and Mixed emotional features as adjustment reaction F43.23 [place] [address] [place] [id number] [place] [address] 96330- 7722 Mar, [place] [address] [place] [id number] [place] [address] 13470- 9383 Mar, [place] [address] [place] [id number] [place] [address] 57204- 2113 Mar, Attention deficit hyperactivity disorder (ADHD), combined type F90.2 [place] [address] [place] [id number] [place] [address] 05934- 3145 Nov, Dental examination Z01.20 [place] [address] [place] [id number] [place] [address] 35860- 2508 Nov, [place] [address] [place] [id number] [place] [address] 30031- 1232 Oct, Well woman exam with routine gynecological exam Z01.419 ; Vaginal discharge N89.8 ; Encounter for counseling regarding contraception Z30.9 and Screening breast examination Z12.39 [facility] [address] [place] [address] 72021 -4548 Oct, Diarrhea, unspecified type R19.7 ; Dysuria R30.0 ; Nausea R11.0 and Periumbilical abdominal pain R10.33 [place] [address] [address] Oct, [facility] [address] [place] [id number] [place] [address] 40082- 3711 Oct, [facility] [address] [place] [id number] [place] [address] 42898- 5839 Oct, Mixed emotional features as adjustment reaction F43.23 and Attention deficit disorder F90.0 [facility] [address] [place] [id number] [place] [address] 12879- 6577 Oct, [facility] [address] [place] [address] 38955- 2784 Aug, Mixed emotional features as adjustment reaction F43.23 and Attention deficit disorder F90.0 [facility] [address] [place] [id number] [place] [address] 39280- 1275 Aug, Mixed emotional features as adjustment reaction F43.23 ; Attention deficit disorder F90.0 and Wellness examination Z00.00 [facility] [address] [place] [id number] [place] [address] 17368- 1675 Aug, Mixed emotional features as adjustment reaction F43.23 and Attention deficit disorder F90.0 [facility] [address] [place] [id number] [place] [address] 00964- 7618 Jul, Mixed emotional features as adjustment reaction F43.23 [facility] [address] [place] [id number] [place] [address] 24001- 5881 Jul, Mixed emotional features as adjustment reaction F43.23 [facility] [address] [place] [id number] [place] [address] 29642- 6522 Jun, Anxiety disorder, unspecified F41.9 [facility] [address] [place] [id number] [place] [address] 33160- 9124 May, Pain in thoracic spine M54.6 [facility] [address] [place] [id number] [place] [address] 86675- 9376 05 Feb, 2015 Allergy, unspecified, initial encounter T78.40XA [facility] [address] [address]- 6238 Jan, [facility] [address] [place] [id number] [place] [address] 27283- 2699 Jan, Environmental allergies V15.09 [facility] [address] [place] [id number] [place] [address] 63391- 9990 Jan, Common cold 460 [facility] [address] [place] [id number] [place] [address] 79869- 3501 Oct, Shoulder pain, left 719.41 and 12 weeks gestation of V22.2 [facility] [address] [place] [id number] [place] [address] 89747- 5685 September, test positive V72.42 [facility] [address] [place] [id number] [place] [address] 59619- 0840 Aug, [facility] [address] [place] [id number] [place] [address] 72023- 4174 Aug, [facility] [address] [place] [address] 20365- 7685 Mar, [facility] [address] [place] [id number] [address]- 2585 Mar, [facility] [address] [address]- 2918 Feb, [facility] [address] [address]- 9701 Feb, [facility] [address] [address]- 5737 Nov, [facility] [address] [address]- 1127 Nov, [facility] [address] [address]- 5937 Oct, [facility] [place] [facility] [address] [id number] [place] [address]- 1313 Oct, [facility] [address] [id number] [place] [address]- 4784 Oct, [facility] [address] [id number] [place] [address]- 3765 Oct, [facility] [address] [id number] [place] [address]- 4823 September, [facility] [address] [id number] [place] [address]- 0323 September, [facility] [address] [id number] [place] [address]- 2815 September, [facility] [address] [id number] [place] [address]- 6820 September, [facility] [address] [id number] [place] [address]- 6583 Aug, [facility] [address] [id number] [place] [address]- 2531 Aug, [facility] [address] [id number] [place] [address]- 5768 Aug, [facility] [address] [id number] [place] [address]- 4365 Aug, [facility] [place] [facility] [address] [id number] [place] [address]- 7035 Aug, [facility] [place] [facility] [address] [id number] [place] [address]- 1316 Aug, [facility] [place] [facility] [address] [id number] [place] [address]- 4501 Aug, [facility] [place] [facility] [address] [id number] [place] [address]- 8702 Aug, [facility] [place] [facility] [address] [id number] [place] [address]- 2456 Jul, [facility] [place] [facility] [address] [id number] [place] [address]- 5275 Jul, [facility] [place] [facility] [address] [id number] [place] [address]- 1648 Aug, [facility] [place] [facility] [address] [id number] [place] [address]- 6728 Jun, [facility] [place] [facility] [address] [id number] [place] [address]- 3058 May, [facility] [place] [facility] [address] [id number] [place] [address]- 0929 Nov, [facility] [place] [facility] [address] [id number] [place] [address]- 3358 Nov, [facility] [place] [facility] [address] [id number] [place] [address]- 0907 Nov, [facility] [place] [facility] [address] [id number] [place] [address]- 9999 September, [facility] [place] [facility] [address] [id number] [place] [address]- 6072 Aug, [facility] [place] [facility] [address] [id number] [place] [address]- 1142 Aug, [facility] [place] [facility] [address] [id number] [place] [address]- 6734 Jun, [facility] [place] [facility] [address] [id number] [place] [address]- 1821 Apr, [facility] [place] [facility] [address] [id number] [place] [address]- 9874 Apr, [facility] [place] [facility] [address] [id number] [place] [address]- 6586 Apr, [facility] [place] [facility] [address] [id number] [place] [address]- 9040 Mar, [facility] [place] [facility] [address] [id number], [place] [address]- 0478 16 Mar, 2011 [facility] [place] [facility] [address] [id number] [place] [address]- 3733 08 Mar, 2011 [facility] [place] [facility] [address] [facility] [id number], [place] [address]- 6391 31 Feb, 2011 [facility] [place] [facility] [address] [facility] [id number] [place] [address]- 2147 11 Feb, 2011 [facility] [place] [facility] [address] [facility] [id number] [place] [address] 98221- 8458 10 Feb, 2011 [facility] [place] [facility] [address] [facility] [id number] [place] [address], [place] [address]- 4097 14 Jan, 2011 [facility] [place] [facility] [address] [facility] [id number], [place] [address]- 1035 13 May, 2009 [facility] [place] [facility] [address] [place] [id number] [place] [address] 88511- 6082 07 Apr, 2009 [facility] [place] [facility] [address] [facility] [id number][place] [address]- 0520 Apr, [facility] [place] [facility] [address] [place] [id number], [place] [address]- 0389 20 Mar, 2009 [facility] [place] [facility] [address] [place] [id number] [address]- 9643 10 Mar, 2009 [facility] [place] [facility] [address] [facility] [id number], [place] [address]- 6822 04 Mar, 2009 [facility] [place] [facility] [address] [facility] [id number], [place] [address]- 7532 29 Feb, 2009 [facility] [place] [facility] [address] [facility] [id number], [place] [address]- 4977 29 Feb, 2009 [facility] [place] [facility] [address] [facility] [id number][place] [address]- 7544 28 Feb, 2009 [facility] [place] [facility] [address] [facility] [id number][place] [address]- 1517 27 Feb, 2009 [facility] [place] [facility] [address] [facility] [id number] [place] [address]- 3842 Feb, IMMUNIZATIONS No Known Immunizations SOCIAL HISTORY Never Assessed REASON FOR VISIT Lab (walk-in) PLAN OF CARE VITAL SIGNS MEDICATIONS Unknown Medications RESULTS No Results PROCEDURES Procedure Date Ordered Result Body Site LAB NOT BILLED BY [facility] November 06, 2017 INSTRUCTIONS MEDICATIONS ADMINISTERED No Known Medications MEDICAL (GENERAL) HISTORY Type Description Date Medical History Heart Murmur Medical History Winter Eczema Medical History Anemia Medical History Left shoulder injury Medical History depression Medical History Attention deficit disorder Surgical History wisdom teeth extraction Hospitalization History of daughter 09/2012 Hospitalization History 05/02/2015
--- OUTSIDE RECORDS SUMMARY | 2018-01-31 19:20 | XMS REPORT ---
Author Author LAVINIA ALFARO [facility] Address [address] [place] [address] Care Team Providers Care Botany Technician Name Role Phone LAVINIA ALFARO Unavailable PROBLEMS Type Condition ICD9-CM Code RES28-JP Code Onset Dates Condition Status SNOMED Code Problem Abnormal TSH R79.89 Active 730886339 Problem History of anemia Z86.2 Active 845590722 Problem Moderate single current episode of major depressive disorder F32.1 Active 18989781 Problem Other spondylosis with myelopathy, cervical region M47.12 Active 01879908 Problem Other chronic pain G89.29 Active 00136880 Problem Chronic fatigue R53.82 Active 33078015 ALLERGIES Substance Reaction Event Type Date Status Celexa nausea Drug Allergy September, Active Adderall hallucinations Drug Allergy September, Active ENCOUNTERS Encounter Location Date Diagnosis [place] [id number] [place] [address] 43768- 0084 Nov, [place] [id number] [place] [address] 26978- 6254 Nov, Bee sting, accidental or unintentional, initial encounter T63.441A [place] [id number] [place] [address] 94993- 7938 Nov, Abnormal TSH R79.89 [facility] [id number] [place] [address] 16129- 5645 Oct, Moderate single current episode of major depressive disorder F32.1 ; History of anemia Z86.2 and Chronic fatigue R53.82 [facility] [id number] [place] [address] 03183- 4638 Oct, [facility] [id number] [place] [address] 40183- 0957 Oct, Moderate single current episode of major depressive disorder F32.1 ; History of anemia Z86.2 ; Nausea R11.0 ; Chronic fatigue R53.82 ; Other chronic pain G89.29 and Pain in left shoulder M25.512 [facility] [address] [place] [id number] [place] [address]30 -3899 Oct, Right foot pain M79.671 [facility] [address] [place] [address] 46462 -9661 September, Urticaria L50.9 [facility] [address] [place] [address] 14843 -4359 September, Allergic contact dermatitis due to plants, except food L23.7 [facility] [place] [id number] [place] [address] 28295 -6077 September, Allergic contact dermatitis due to plants, except food L23.7 [facility] [address] 28780 -8870 Aug, [facility] [address] 12967 [address]9641 Jun, Bronchitis J40 [facility] [address] [address] May, Fever, unspecified fever cause R50.9 and Influenza A J10.[address] [address]14- [address] Apr, [address] [address]18- 1682 Apr, [address] 40157- 8793 Apr, Routine gynecological examination Z01.419 [place] [id number] [place] [address] 46700- 2300 Feb, Allergic contact dermatitis due to plants, except food L23.7 [place] [id number] [place] [address] 58479- 8298 Dec, Diarrhea of presumed infectious origin A09 ; Bilious vomiting with nausea R11.14 and 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 [facility] [id number] [place] [address] 32077 -7568 Nov, Insect bite (nonvenomous) of left upper arm, initial encounter S40.862A and Left arm cellulitis L03.114 [place] [id number] [place] [address] 38527- 4306 Oct, [place] [address] 88515- 8971 Oct, Pain of left upper extremity M79.602 ; Anesthesia of skin R20.0 and Neck pain on left side M54.2 [place] [id number] [place] [address] 00400- 7459 Oct, [place] [id number] [place] [address] 58234- 3640 September, [place] [id number] [place] [address] 36772- 3671 September, Other spondylosis with myelopathy, cervical region M47.12 [place] [id number] [place] [address] 07453- 1439 Aug, Mixed emotional features as adjustment reaction F43.23 ; Attention deficit hyperactivity disorder (ADHD), combined type F90.2 and Moderate single current episode of major depressive disorder F32.1 [facility] [id number] [place] [address] 63878- 4394 12 Aug, 2016 Moderate single current episode of major depressive disorder F32.1 and 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 [place] [id number] [place] [address] 47376- 9875 10 Aug, 2016 Mixed emotional features as adjustment reaction F43.23 and Attention deficit hyperactivity disorder (ADHD), combined type F90.2 [place] [address] [address] Aug, Mixed emotional features as adjustment reaction F43.23 and Attention deficit hyperactivity disorder (ADHD), combined type F90.2 [facility] [id number] [place] [address] 72180- 7155 Jul, Attention deficit hyperactivity disorder (ADHD), combined type F90.2 and Mixed emotional features as adjustment reaction F43.23 [place] [id number] [place] [address] 28173- 6134 Mar, [facility] [id number] [place] [address] 35506- 8091 Mar, [place] [id number] [place] [address] 96832- 1537 Mar, Attention deficit hyperactivity disorder (ADHD), combined type F90.2 [place] [id number] [place] [address] 70550- 8108 Nov, Dental examination Z01.20 [place] [id number] [place] [address] 45121- 4489 Nov, [place] [id number] [place] [address] 36205- 2344 Oct, Well woman exam with routine gynecological exam Z01.419 ; Vaginal discharge N89.8 ; Encounter for counseling regarding contraception Z30.9 and Screening breast examination Z12.39 [facility] [address] [place] [address] 56420 -9210 Oct, Diarrhea, unspecified type R19.7 ; Dysuria R30.0 ; Nausea R11.0 and Periumbilical abdominal pain R10.33 [place] [id number] [place] [address] 89187- 0985 Oct, [facility] [id number] [place] [address] 65537- 5905 Oct, [place] [id number] [place] [address] 61152- 4629 Oct, Mixed emotional features as adjustment reaction F43.23 and Attention deficit disorder F90.0 [place] [address] 71482- 6817 Oct, [place] [id number] [place] [address] 76578- 9934 Aug, Mixed emotional features as adjustment reaction F43.23 and Attention deficit disorder F90.0 [place] [id number] [place] [address] 53157- 1376 Aug, Mixed emotional features as adjustment reaction F43.23 ; Attention deficit disorder F90.0 and Wellness examination Z00.00 [place] [id number] [place] [address] 17547- 5619 Aug, Mixed emotional features as adjustment reaction F43.23 and Attention deficit disorder F90.0 [place] [address] 79831- 1727 Jul, Mixed emotional features as adjustment reaction F43.23 [place] [id number] [place] [address] 50401- 1151 Jul, Mixed emotional features as adjustment reaction F43.23 [place] [id number] [place] [address] 16415- 3608 Jun, Anxiety disorder, unspecified F41.9 [place] [id number] [place] [address] 78070- 3837 May, Pain in thoracic spine M54.6 [place] [address] 44347- 3167 Feb, Allergy, unspecified, initial encounter T78.40XA [place] [id number] [place] [address] 07789- 7065 Jan, [place] [id number] [place] [address] 50417- 5085 25 Sep, 2015 Environmental allergies V15.09 [facility] [address] [address] 7279 Jan, Common cold 460 [facility] [id number] [place] [address] 16912- 5997 Oct, Shoulder pain, left 719.41 and 12 weeks gestation of V22.2 [facility] [id number] [place] [address] 29090- 7028 September, test positive V72.42 [facility] [id number] [place] [address] 91194- 6110 Aug, [facility] [id number] [place] [address] 12004- 0053 Aug, [facility] [id number] [place] [address] 08766- 6059 Mar, [facility] [id number] [place] [address] 80978- 2348 Mar, [facility] [address] [place] [address] 31554- 2824 Feb, [facility] [id number] [place] [address] 62437- 3759 Feb, [facility] [address] [address]- 5020 Nov, [facility] [address] [place] [address] 81219- 6660 Nov, [facility] [address] [address]- 2329 Oct, [facility] [id number] [place] [address] 89506- 4991 Oct, [facility] [address] 0092 Oct, [facility] [id number] [place] [address] 88608- 3977 Oct, [facility] [place] [facility] [address] [id number] [place] [address]- 9762 September, [facility] [place] [facility] [address] [id number] [place] [address]- 9100 September, [facility] [place] [facility] [address] [id number] [place] [address]- 7677 September, [facility] [place] [facility] [address] [id number] [place] [address]- 7262 September, [facility] [place] [facility] [address] [id number] [place] [address]- 1266 Aug, [facility] [place] [facility] [address] [id number] [place] [address]- 1579 Aug, [facility] [place] [facility] [address] [id number] [place] [address]- 2465 Aug, [facility] [place] [facility] [address] [id number] [place] [address]- 8960 Aug, [facility] [place] [facility] [address] [id number] [place] [address]- 3654 Aug, [facility] [place] [facility] [address] [id number] [place] [address]- 8186 Aug, [facility] [place] [facility] [address] [id number] [place] [address]- 5487 Aug, [facility] [place] [facility] [address] [id number] [place] [address]- 1638 Aug, [facility] [place] [facility] [address] [id number] [place] [address]- 0406 Jul, [facility] [place] [facility] [address] [id number] [place] [address]- 5198 Jul, [facility] [place] [facility] [address] [id number] [place] [address]- 2763 Aug, [facility] [place] [facility] [address] [id number] [place] [address]- 5766 Jun, [facility] [address] [id number] [place] [address]- 5024 May, [facility] [place] [facility] [address] [id number] [place] [address]- 2546 Nov, [facility] [address] [id number] [place] [address] 2546 Nov, [facility] [place] [facility] [address] [id number] [place] [address]- 2547 Nov, [facility] [address] [id number] [place] [address]- 9653 September, [facility] [address] [id number] [place] [address]- 6039 Aug, [facility] [address] [id number] [place] [address]- 8896 Aug, [facility] [address] [id number] [place] [address]- 7624 Jun, [facility] [address] [id number] [place] [address]- 9272 Apr, [facility] [address] [id number] [place] [address]- 9964 Apr, [facility] [address] [id number] [place] [address]- 2546 Apr, [facility] [address] [id number] [place] [address]- 9935 Mar, [facility] [place] [facility] [address] [id number] [place] [address]- 2546 Mar, [facility] [place] [facility] [address] [id number] [place] [address]- 2546 Mar, [facility] [place] [facility] [address] [id number] [place] [address]- 2085 Feb, [facility] [address] [facility] [id number] [address]- 5164 11 Feb, 2011 [facility] [address] [facility] [id number] 6700 10 Feb, 2011 [facility] [address] [facility] [id number]- 5010 14 Jan, 2011 [facility] [address] [facility] [id number][place] [address]- 8850 May, [facility] [address] [facility] [id number] 1301 Apr, [facility] [address] [facility] [id number] 7810 Apr, [facility] [address], [place] [address]- 1326 Mar, [facility] [address], [place] [address]- 0609 Mar, [facility] [address], [place] [address]- 7751 Mar, [facility] [address], [place] [address]- 4891 Feb, [facility] [address], [place] [address]- 0507 Feb, [facility] [id number] [address]- 7764 Feb, [facility] [address] [facility] [id number], [place] [address]- 6462 Feb, [facility] [address], [place] [address]- 3332 Feb, IMMUNIZATIONS Vaccine Route Administration Date Status SOLUMEDROL (UP TO 125 MG) IM Intramuscular October 01, 2017 Administered SOCIAL HISTORY Never Assessed REASON FOR VISIT poison yann Pt in to have poison yann rechecked KRISTIN Buenrostro PLAN OF CARE Activity Details Follow Up prn Reason: VITAL SIGNS Height 62 in 2017-10-01 Weight 130.4 lbs 2017-10-01 Temperature 99.3 degrees Fahrenheit 2017-10-01 Heart Rate 82 bpm 2017-10-01 Respiratory Rate 20 2017-10-01 BMI 23.85 kg/m2 2017-10-01 Blood pressure systolic 120 mmHg 2017-10-01 Blood pressure diastolic 68 mmHg 2017-10-01 MEDICATIONS Medication Instructions Dosage Frequency Start Date End Date Duration Status PredniSONE 20 MG Orally Once a day 2 tablets 24h September, September, 05 days Active RESULTS No Results PROCEDURES Procedure Date Ordered Result Body Site SOLUMEDROL (UP TO 125 MG) October 01, 2017 THER/PROPH/DIAG INJ, SC/IM October 01, 2017 INSTRUCTIONS MEDICATIONS ADMINISTERED No Known Medications MEDICAL (GENERAL) HISTORY Type Description Date Medical History Heart Murmur Medical History Winter Eczema Medical History Anemia Medical History Left shoulder injury Medical History depression Medical History Attention deficit disorder Surgical History wisdom teeth extraction Hospitalization History of daughter 09/2012 Hospitalization History 05/02/2015
--- OUTSIDE RECORDS SUMMARY | 2018-01-31 19:20 | XMS REPORT ---
Author Author SANTIAGO ZURITA Organization [facility] Address [address] [place] [address] Care Team Providers Care Rn Traveling Name Role Phone SANTIAGO ZURITA Unavailable PROBLEMS Type Condition ICD9-CM Code WML62-WW Code Onset Dates Condition Status SNOMED Code Problem Abnormal TSH R79.89 Active 314550277 Problem History of anemia Z86.2 Active 986041960 Problem Moderate single current episode of major depressive disorder F32.1 Active 80779754 Problem Other spondylosis with myelopathy, cervical region M47.12 Active 21746644 Problem Other chronic pain G89.29 Active 08814093 Problem Chronic fatigue R53.82 Active 28359386 ALLERGIES Substance Reaction Event Type Date Status Celexa nausea Drug Allergy September, Active Adderall hallucinations Drug Allergy September, Active ENCOUNTERS Encounter Location Date Diagnosis [place] [id number] [place] [address] 00648- 7053 Nov, [place] [id number] [place] [address] 19273- 2423 Nov, Bee sting, accidental or unintentional, initial encounter T63.441A [place] [id number] [place] [address] 74285- 6787 Nov, Abnormal TSH R79.89 [facility] [id number] [place] [address] 66540- 3427 Oct, Moderate single current episode of major depressive disorder F32.1 ; History of anemia Z86.2 and Chronic fatigue R53.82 [facility] [id number] [place] [address] 49108- 6398 Oct, [facility] [id number] [place] [address] 01929- 4464 22 Dejuan, 2018 Moderate single current episode of major depressive disorder F32.1 ; History of anemia Z86.2 ; Nausea R11.0 ; Chronic fatigue R53.82 ; Other chronic pain G89.29 and Pain in left shoulder M25.512 [facility] [address] [place] [address] 67565 -7526 Oct, Right foot pain M79.671 [facility] [address] [place] [address] 43243 -4948 September, Urticaria L50.9 [facility] [address] [place] [address] 85345 -3047 September, Allergic contact dermatitis due to plants, except food L23.7 [facility] [address] [address] September, Allergic contact dermatitis due to plants, except food L23.7 [facility] [address] [address] Aug, [facility] [address] [place] [address] 36707 -1327 Jun, Bronchitis J40 [facility] [address] [address] May, Fever, unspecified fever cause R50.9 and Influenza A J10.[address] [address]- 5185 Apr, [address] [address]- 8857 Apr, [address] 15885- 1644 Apr, Routine gynecological examination Z01.[address] 77[address]- 4750 Feb, Allergic contact dermatitis due to plants, except food L23.[address] [place] [address] 6[address] Dec, Diarrhea of presumed infectious origin A09 ; Bilious vomiting with nausea R11.14 and 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 [facility] [id number] [place] [address] 85747 -0948 Nov, Insect bite (nonvenomous) of left upper arm, initial encounter S40.862A and Left arm cellulitis L03.114 [place] [id number] [place] [address] 31189- 6745 Oct, [place] [id number] [place] [address] 62894- 1419 Oct, Pain of left upper extremity M79.602 ; Anesthesia of skin R20.0 and Neck pain on left side M54.2 [facility] [id number] [place] [address] 72740- 8831 Oct, [facility] [id number] [place] [address] 00342- 7074 September, [place] [id number] [place] [address] 57605- 7711 September, Other spondylosis with myelopathy, cervical region M47.12 [facility] [address] [place] [address] 22816- 6572 Aug, Mixed emotional features as adjustment reaction F43.23 ; Attention deficit hyperactivity disorder (ADHD), combined type F90.2 and Moderate single current episode of major depressive disorder F32.1 [facility] [address] [place] [address] 49149- 1656 12 Aug, 2016 Moderate single current episode of major depressive disorder F32.1 and 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 [place] [id number] [place] [address] 12897- 8734 10 Aug, 2016 Mixed emotional features as adjustment reaction F43.23 and Attention deficit hyperactivity disorder (ADHD), combined type F90.2 [facility] [id number] [place] [address] 95085- 7161 Aug, Mixed emotional features as adjustment reaction F43.23 and Attention deficit hyperactivity disorder (ADHD), combined type F90.2 [facility] [id number] [place] [address] 68447- 2187 Jul, Attention deficit hyperactivity disorder (ADHD), combined type F90.2 and Mixed emotional features as adjustment reaction F43.23 [place] [id number] [place] [address] 07121- 9078 Mar, [place] [id number] [place] [address] 76318- 8164 Mar, [place] [id number] [place] [address] 10820- 0894 Mar, Attention deficit hyperactivity disorder (ADHD), combined type F90.2 [place] [id number] [place] [address] 03682- 6321 Nov, Dental examination Z01.20 [place] [id number] [place] [address] 60379- 8943 Nov, [place] [id number] [place] [address] 92828- 5185 Oct, Well woman exam with routine gynecological exam Z01.419 ; Vaginal discharge N89.8 ; Encounter for counseling regarding contraception Z30.9 and Screening breast examination Z12.39 [facility] [id number] [place] [address] 57081 -8795 Oct, Diarrhea, unspecified type R19.7 ; Dysuria R30.0 ; Nausea R11.0 and Periumbilical abdominal pain R10.33 [place] [id number] [place] [address] 69065- 6273 Oct, [place] [id number] [place] [address] 17074- 3407 Oct, [place] [id number] [place] [address] 44075- 6299 Oct, Mixed emotional features as adjustment reaction F43.23 and Attention deficit disorder F90.0 [place] [address] 45349- 1350 Oct, [place] [id number] [place] [address] 48224- 9716 Aug, Mixed emotional features as adjustment reaction F43.23 and Attention deficit disorder F90.0 [place] [address] 45953- 4808 Aug, Mixed emotional features as adjustment reaction F43.23 ; Attention deficit disorder F90.0 and Wellness examination Z00.00 [place] [id number] [place] [address] 16754- 2588 Aug, Mixed emotional features as adjustment reaction F43.23 and Attention deficit disorder F90.0 [place] [address] 85781- 9973 Jul, Mixed emotional features as adjustment reaction F43.23 [place] [address] 00049- 1651 Jul, Mixed emotional features as adjustment reaction F43.23 [place] [id number] [place] [address] 31512- 2494 Jun, Anxiety disorder, unspecified F41.9 [place] [address] 55785- 1803 May, Pain in thoracic spine M54.6 [place] [address] 61135- 2393 Feb, Allergy, unspecified, initial encounter T78.40XA [place] [address] 36908- 5633 Jan, [place] [address] 30509- 8411 Jan, Environmental allergies V15.09 [facility] [address] [address] 3983 Jan, Common cold 460 [facility] [id number] [place] [address] 47076- 8394 Oct, Shoulder pain, left 719.41 and 12 weeks gestation of V22.2 [facility] [id number] [place] [address] 27405- 5742 September, test positive V72.42 [facility] [id number] [place] [address] 60633- 1909 Aug, [facility] [id number] [place] [address] 11782- 5463 Aug, [facility] [id number] [place] [address] 85770- 7665 Mar, [facility] [id number] [place] [address] 81331- 2511 Mar, [facility] [address] [place] [address] 03595- 6482 Feb, [facility] [id number] [place] [address] 02410- 4439 Feb, [facility] [address] [address]- 3255 Nov, [facility] [address] [address]- 5967 Nov, [facility] [address] [address]- 1789 Oct, [facility] [id number] [place] [address] 77433- 2249 Oct, [facility] [address] 7953 Oct, [facility] [address] [place] [address] 18698- 9586 Oct, [facility] [place] [facility] [address] [id number] [place] [address]- 1129 September, [facility] [place] [facility] [address] [id number] [place] [address]- 4478 September, [facility] [place] [facility] [address] [id number] [place] [address]- 9369 September, [facility] [place] [facility] [address] [id number] [place] [address]- 3000 September, [facility] [place] [facility] [address] [id number] [place] [address]- 2360 Aug, [facility] [place] [facility] [address] [id number] [place] [address]- 7077 Aug, [facility] [place] [facility] [address] [id number] [place] [address]- 2562 Aug, [facility] [place] [facility] [address] [id number] [place] [address]- 0155 Aug, [facility] [place] [facility] [address] [id number] [place] [address]- 0050 Aug, [facility] [place] [facility] [address] [id number] [place] [address]- 6560 Aug, [facility] [place] [facility] [address] [id number] [place] [address]- 5120 Aug, [facility] [place] [facility] [address] [id number] [place] [address]- 1210 Aug, [facility] [place] [facility] [address] [id number] [place] [address]- 1309 Jul, [facility] [place] [facility] [address] [id number] [place] [address]- 0097 Jul, [facility] [place] [facility] [address] [id number] [place] [address]- 3144 Aug, [facility] [place] [facility] [address] [id number] [place] [address]- 9846 Jun, [facility] [address] [id number] [place] [address]- 0303 May, [facility] [address] [id number] [place] [address]- 5803 Nov, [facility] [address] [id number] [place] [address]- 3656 Nov, [facility] [address] [id number] [place] [address]- 0789 Nov, [facility] [address] [id number] [place] [address]- 0324 September, [facility] [address] [id number] [place] [address]- 7675 Aug, [facility] [address] [facility] [id number] [place] [address]- 9707 Aug, [facility] [address] [id number] [place] [address]- 1729 Jun, [facility] [address] [facility] [id number] [place] [address]- 9651 Apr, [facility] [address] [facility] [id number] [place] [address]- 4485 Apr, [facility] [address] [id number] [place] [address]- 7429 Apr, [facility] [address] [id number] [place] [address]- 4167 30 Mar, 2011 [facility] [place] [facility] [address] [id number] [place] [address]- 5642 16 Mar, 2011 [facility] [place] [facility] [address] [facility] [id number] [place] [address]- 2548 08 Mar, 2011 [facility] [address] [facility] [id number] [place] [address]- 5775 31 Feb, 2011 [facility] [id number] [address]- 4206 11 Feb, 2011 [facility] [address] [facility] [id number] 3006 10 Feb, 2011 [facility] [id number] 6245 14 Jan, 2011 [facility] [address] [facility] [id number], [place] [address]- 5974 May, [facility] [address] [facility] [id number] 8992 Apr, [facility] [address] [facility] [id number] 9646 Apr, [facility] [address] [address]- 6554 Mar, [facility] [address] [address]- 6205 Mar, [facility] [address] [place] [address]- 4981 Mar, [facility] [address] [place] [address]- 8851 Feb, [facility] [address] [place] [address]- 4853 Feb, [facility] [address] [address]- 2722 Feb, [facility] [id number] [address]- 8522 Feb, [facility] [address]- 8448 14 Feb, 2009 IMMUNIZATIONS No Known Immunizations SOCIAL HISTORY Never Assessed REASON FOR VISIT poison yann all over. has been here to the [facility] 3 times for this complaint. has received IM steroids et PO steroids. reports some relief...now is itching and thinks the rash is getting worse again. been there for 2 weeks. kbullantonia PLAN OF CARE Activity Details Follow Up est care Reason: VITAL SIGNS Height 62 in 2017-10-06 Weight 130.4 lbs 2017-10-06 Temperature 97.8 degrees Fahrenheit 2017-10-06 Heart Rate 88 bpm 2017-10-06 Respiratory Rate 20 2017-10-06 BMI 23.85 kg/m2 2017-10-06 Blood pressure systolic 118 mmHg 2017-10-06 Blood pressure diastolic 72 mmHg 2017-10-06 MEDICATIONS Medication Instructions Dosage Frequency Start Date End Date Duration Status Ranitidine 1 tab Active RESULTS No Results PROCEDURES No Known [...]
--- OUTSIDE RECORDS SUMMARY | 2018-01-31 19:20 | XMS REPORT ---
Author Author LAVINIA ALFARO [facility] IN [facility] Address [address] [place] [address] Care Team Providers Care Kitchen Runner Name Role Phone LAVINIA ALFARO Unavailable PROBLEMS Type Condition ICD9-CM Code TIN73-BK Code Onset Dates Condition Status SNOMED Code Problem Abnormal TSH R79.89 Active 204222479 Problem History of anemia Z86.2 Active 876877827 Problem Moderate single current episode of major depressive disorder F32.1 Active 13926720 Problem Other spondylosis with myelopathy, cervical region M47.12 Active 74603860 Problem Other chronic pain G89.29 Active 08023032 Problem Chronic fatigue R53.82 Active 65401272 ALLERGIES Substance Reaction Event Type Date Status Celexa nausea Drug Allergy Oct, Active Adderall hallucinations Drug Allergy Oct, Active ENCOUNTERS Encounter Location Date Diagnosis [place] [id number] [place] [address] 49052- 5451 Nov, [place] [id number] [place] [address] 79768- 3370 Nov, Bee sting, accidental or unintentional, initial encounter T63.441A [place] [id number] [place] [address] 13634- 2711 Nov, Abnormal TSH R79.89 [facility] [id number] [place] [address] 22205- 2703 Oct, Moderate single current episode of major depressive disorder F32.1 ; History of anemia Z86.2 and Chronic fatigue R53.82 [facility] [id number] [place] [address] 19059- 9603 Oct, [facility] [id number] [place] [address] 96577- 3937 Oct, Moderate single current episode of major depressive disorder F32.1 ; History of anemia Z86.2 ; Nausea R11.0 ; Chronic fatigue R53.82 ; Other chronic pain G89.29 and Pain in left shoulder M25.512 [facility] [address] [place] [id number] [place] [address] 97516 -9590 Oct, Right foot pain M79.671 [facility] [address] [place] [address] 79796 -8178 September, Urticaria L50.9 [facility] [address] [place] [address] 41791 -7225 September, Allergic contact dermatitis due to plants, except food L23.7 [facility] [place] [id number] [place] [address] 94435 -3547 September, Allergic contact dermatitis due to plants, except food L23.7 [facility] [address] [address] Aug, [facility] [address] [address] Jun, Bronchitis J40 [facility] [address] [address] May, Fever, unspecified fever cause R50.9 and Influenza A J10.[address] [address]- [address] Apr, [address] [address]- [address]27 Apr, [address] 98544- 4959 Apr, Routine gynecological examination Z01.419 [place] [id number] [place] [address] 96296- 9044 Feb, Allergic contact dermatitis due to plants, except food L23.7 [place] [id number] [place] [address] 31082- 9900 Dec, Diarrhea of presumed infectious origin A09 ; Bilious vomiting with nausea R11.14 and 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 [facility] [id number] [place] [address] 51171 -5152 Nov, Insect bite (nonvenomous) of left upper arm, initial encounter S40.862A and Left arm cellulitis L03.114 [place] [id number] [place] [address] 10155- 4947 Oct, [place] [address] 03194- 7603 Oct, Pain of left upper extremity M79.602 ; Anesthesia of skin R20.0 and Neck pain on left side M54.2 [place] [id number] [place] [address] 77033- 0410 Oct, [place] [id number] [place] [address] 76437- 9909 September, [place] [id number] [place] [address] 97181- 1634 September, Other spondylosis with myelopathy, cervical region M47.12 [place] [id number] [place] [address] 82861- 5956 Aug, Mixed emotional features as adjustment reaction F43.23 ; Attention deficit hyperactivity disorder (ADHD), combined type F90.2 and Moderate single current episode of major depressive disorder F32.1 [facility] [id number] [place] [address] 99590- 5602 12 Aug, 2016 Moderate single current episode of major depressive disorder F32.1 and 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 [place] [id number] [place] [address] 61802- 9543 10 Aug, 2016 Mixed emotional features as adjustment reaction F43.23 and Attention deficit hyperactivity disorder (ADHD), combined type F90.2 [place] [address] [address] Aug, Mixed emotional features as adjustment reaction F43.23 and Attention deficit hyperactivity disorder (ADHD), combined type F90.2 [facility] [id number] [place] [address] 07188- 6055 Jul, Attention deficit hyperactivity disorder (ADHD), combined type F90.2 and Mixed emotional features as adjustment reaction F43.23 [place] [id number] [place] [address] 50039- 6579 Mar, [facility] [id number] [place] [address] 84083- 5238 Mar, [place] [id number] [place] [address] 88841- 0410 Mar, Attention deficit hyperactivity disorder (ADHD), combined type F90.2 [place] [id number] [place] [address] 47935- 9149 Nov, Dental examination Z01.20 [place] [id number] [place] [address] 84635- 6654 Nov, [place] [id number] [place] [address] 86523- 8203 Oct, Well woman exam with routine gynecological exam Z01.419 ; Vaginal discharge N89.8 ; Encounter for counseling regarding contraception Z30.9 and Screening breast examination Z12.39 [facility] IN [facility] [address] [place] [address] 85776 -8674 Oct, Diarrhea, unspecified type R19.7 ; Dysuria R30.0 ; Nausea R11.0 and Periumbilical abdominal pain R10.33 [place] [id number] [place] [address] 71966- 3958 Oct, [facility] [id number] [place] [address] 67645- 8814 Oct, [place] [id number] [place] [address] 46477- 1801 Oct, Mixed emotional features as adjustment reaction F43.23 and Attention deficit disorder F90.0 [place] [address] 01907- 6873 Oct, [place] [id number] [place] [address] 53713- 1500 Aug, Mixed emotional features as adjustment reaction F43.23 and Attention deficit disorder F90.0 [place] [id number] [place] [address] 41379- 8998 Aug, Mixed emotional features as adjustment reaction F43.23 ; Attention deficit disorder F90.0 and Wellness examination Z00.00 [place] [id number] [place] [address] 77700- 6270 Aug, Mixed emotional features as adjustment reaction F43.23 and Attention deficit disorder F90.0 [place] [address] 24057- 7301 Jul, Mixed emotional features as adjustment reaction F43.23 [place] [id number] [place] [address] 93356- 6117 Jul, Mixed emotional features as adjustment reaction F43.23 [place] [id number] [place] [address] 69955- 1989 Jun, Anxiety disorder, unspecified F41.9 [place] [id number] [place] [address] 64156- 0240 May, Pain in thoracic spine M54.6 [place] [address] 76439- 3881 Feb, Allergy, unspecified, initial encounter T78.40XA [place] [id number] [place] [address] 30833- 2644 Jan, [place] [id number] [place] [address] 45225- 5296 25 Sep, 2015 Environmental allergies V15.09 [facility] [address] [address] 7[address] Jan, Common cold 460 [facility] [id number] [place] [address] 50243- 3148 Oct, Shoulder pain, left 719.41 and 12 weeks gestation of V22.2 [facility] [id number] [place] [address] 97653- 4582 September, test positive V72.42 [facility] [id number] [place] [address] 48789- 3977 Aug, [facility] [id number] [place] [address] 95658- 1415 Aug, [facility] [id number] [place] [address] 20957- 1990 Mar, [facility] [id number] [place] [address] 61919- 1313 Mar, [facility] [address] [place] [address] 92233- 0004 Feb, [facility] [id number] [place] [address] 10084- 6589 Feb, [facility] [address] [address]- 0226 Nov, [facility] [address] [place] [address] 10490- 0868 Nov, [facility] [address] [address]- 1551 Oct, [facility] [id number] [place] [address] 65550- 9283 Oct, [facility] [address] 6863 Oct, [facility] [id number] [place] [address] 77666- 3434 Oct, [facility] [place] [facility] [address] [id number] [place] [address]- 9450 September, [facility] [place] [facility] [address] [id number] [place] [address]- 9029 September, [facility] [place] [facility] [address] [id number] [place] [address]- 4154 September, [facility] [place] [facility] [address] [id number] [place] [address]- 6807 September, [facility] [place] [facility] [address] [id number] [place] [address]- 9096 Aug, [facility] [place] [facility] [address] [id number] [place] [address]- 9258 Aug, [facility] [place] [facility] [address] [id number] [place] [address]- 6334 Aug, [facility] [place] [facility] [address] [id number] [place] [address]- 1079 Aug, [facility] [place] [facility] [address] [id number] [place] [address]- 4976 Aug, [facility] [place] [facility] [address] [id number] [place] [address]- 9588 Aug, [facility] [place] [facility] [address] [id number] [place] [address]- 7561 Aug, [facility] [place] [facility] [address] [id number] [place] [address]- 6378 Aug, [facility] [place] [facility] [address] [id number] [place] [address]- 8252 Jul, [facility] [place] [facility] [address] [id number] [place] [address]- 1391 Jul, [facility] [place] [facility] [address] [id number] [place] [address]- 7394 Aug, [facility] [place] [facility] [address] [id number] [place] [address]- 4616 Jun, [facility] [address] [id number] [place] [address]- 0138 May, [facility] [place] [facility] [address] [id number] [place] [address]- 2546 Nov, [facility] [address] [id number] [place] [address] 2546 Nov, [facility] [place] [facility] [address] [id number] [place] [address]- 2544 Nov, [facility] [address] [id number] [place] [address]- 6225 September, [facility] [address] [id number] [place] [address]- 5299 Aug, [facility] [address] [id number] [place] [address]- 2746 Aug, [facility] [address] [id number] [place] [address]- 8522 Jun, [facility] [address] [id number] [place] [address]- 6169 Apr, [facility] [address] [id number] [place] [address]- 6700 Apr, [facility] [address] [id number] [place] [address]- 2546 Apr, [facility] [address] [id number] [place] [address]- 5351 Mar, [facility] [place] [facility] [address] [id number] [place] [address]- 2546 Mar, [facility] [place] [facility] [address] [id number] [place] [address]- 2546 Mar, [facility] [place] [facility] [address] [id number] [place] [address]- 4185 Feb, [facility] [address] [facility] [id number] [address]- 9817 11 Feb, 2011 [facility] [address] [facility] [id number] [place] [address]- 2342 10 Feb, 2011 [facility] [address] [facility] [id number] [place] [address]- 3532 14 Jan, 2011 [facility] [address] [facility] [id number] [place] [address]- 7050 May, [facility] [address] [facility] [id number] [place] [address]- 3714 Apr, [facility] [address] [facility] [id number] [place] [address] 66207- 7787 Apr, [facility] [address] [address]- 5465 Mar, [facility] [address] [address]- 7899 Mar, [facility] [address] [facility] [id number] [place] [address]- 2903 Mar, [facility] [address] [place] [id number] [address]- 6708 Feb, [facility] [address] [facility] [id number] [place] [address]- 1698 Feb, [facility] [address] [facility] [id number] [place] [address]- 7589 Feb, [facility] [address] [facility] [id number] [place] [address]- 8545 Feb, [facility] [address] [address]- 7166 Feb, IMMUNIZATIONS No Known Immunizations SOCIAL HISTORY Never Assessed REASON FOR VISIT foot pain- stepped on a sparkler about 5 days ago [employer] PLAN OF CARE Activity Details Follow Up prn Reason: VITAL SIGNS Height 62 in 2017-10-23 Weight 129.8 lbs 2017-10-23 Temperature 97.6 degrees Fahrenheit 2017-10-23 Heart Rate 80 bpm 2017-10-23 Respiratory Rate 20 2017-10-23 BMI 23.74 kg/m2 2017-10-23 Blood pressure systolic 100 mmHg 2017-10-23 Blood pressure diastolic 70 mmHg 2017-10-23 MEDICATIONS Medication Instructions Dosage Frequency Start Date End Date Duration Status Ranitidine 1 tab Not-Taking RESULTS Name Result Date Reference Range Xray : Foot, Right 3 views (IN HOUSE) 2017-10-23 PROCEDURES Procedure Date Ordered Result Body Site X-RAY EXAM OF FOOT October 23, 2017 INSTRUCTIONS MEDICATIONS ADMINISTERED No Known Medications MEDICAL (GENERAL) HISTORY Type Description Date Medical History Heart Murmur Medical History Winter Eczema Medical History Anemia Medical History Left shoulder injury Medical History depression Medical History Attention deficit disorder Surgical History wisdom teeth extraction Hospitalization History of daughter 09/2012 Hospitalization History 05/02/2015
--- OUTSIDE RECORDS SUMMARY | 2018-01-31 19:21 | XMS REPORT ---
Author Author JATINDER HESS [facility] eClinical[employer] Address Unknown Phone Unavailable Care Team Providers Care Salon Supervisor Name Role Phone JATINDER HESS CP Unavailable Allergies, Adverse Reactions, Alerts Substance Reaction Event Type N.K.D.A. Info Not Available Non Drug Allergy Problems Problem Type Condition ICD-9 Code Onset Dates Condition Status Problem Major depressive disorder, recurrent episode, moderate 296.32 Active Assessment Environmental allergies V15.09 Active Problem Spasm of muscle 728.85 Active Problem Pain in soft tissues of limb 729.5 Active Problem Cervicalgia 723.1 Active Problem Closed fracture of metacarpal bone(s), site unspecified 815.00 Active Problem Posttraumatic stress disorder 309.81 Active Problem Unspecified fall E888.9 Active Problem Pediatric pre- visit for expectant mother V65.11 Active Medications Medication Code System Code Instructions Start Date End Date Status Dosage [facility] [address]-22504 28-0.8 MG Orally not defined Niya Allergy [facility] [address]24-35000 180 MG Orally Once a day Feb 05, 2015 May 06, 2015 1 tablet Procedures Procedure Coding System Code Date Office Visit, Est Pt., Level 3 CPT-4 84520 Feb 05, 2015 Vital Signs Date/Time: Feb 05, 2015 Temperature 98.3 F Weight 133.0 lbs Height 62 in BMI 24.32 Index Blood Pressure Diastolic 55 mmHg Blood Pressure Systolic 105 mmHg Cardiac Monitoring Heart Rate 88 bpm Results No Known Results Summary Purpose eClinicalWorks Submission
--- OUTSIDE RECORDS SUMMARY | 2018-01-31 19:21 | XMS REPORT ---
Author Author EMMY TOVAR [facility] Address [address] [place] [address] Care Team Providers Care [employer] Operator Name Role Phone GUY EMMY Unavailable PROBLEMS Type Condition ICD9-CM Code DCL71-ZU Code Onset Dates Condition Status SNOMED Code Problem Abnormal TSH R79.89 Active 587118898 Problem History of anemia Z86.2 Active 803419126 Problem Moderate single current episode of major depressive disorder F32.1 Active 19435270 Problem Other spondylosis with myelopathy, cervical region M47.12 Active 51155553 Problem Other chronic pain G89.29 Active 38115271 Problem Chronic fatigue R53.82 Active 15188647 ALLERGIES No Information ENCOUNTERS Encounter Location Date Diagnosis [place] [address] [address] Nov, [place] [address] [address] Nov, Bee sting, accidental or unintentional, initial encounter T63.441A [address] [address] Nov, Abnormal TSH R79.89 [place] [address] [address] Oct, Moderate single current episode of major depressive disorder F32.1 ; History of anemia Z86.2 and Chronic fatigue R53.82 [place] [address] [address] Oct, [place] [address] [address] Oct, Moderate single current episode of major depressive disorder F32.1 ; History of anemia Z86.2 ; Nausea R11.0 ; Chronic fatigue R53.82 ; Other chronic pain G89.29 and Pain in left shoulder M25.512 [facility] [address] [place] [address] Oct, Right foot pain M79.671 [facility] [address] [place] [address] September, Urticaria L50.9 [facility] [address] [place] [address] September, Allergic contact dermatitis due to plants, except food L23.7 [facility] [address] [address] September, Allergic contact dermatitis due to plants, except food L23.7 [facility] [address] [place] [address] Aug, [facility] [address] [place] [address] Jun, Bronchitis J40 [facility] [address] [address] May, Fever, unspecified fever cause R50.9 and Influenza A J10.[address] [address] Apr, [address] [address] Apr, [address] [address] Apr, Routine gynecological examination Z01.[address] [address] Feb, Allergic contact dermatitis due to plants, except food L23.7 [place] [address] [address] Dec, Diarrhea of presumed infectious origin A09 ; Bilious vomiting with nausea R11.14 and 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 [facility] [address] [place] [id number] [place] [address] Nov, Insect bite (nonvenomous) of left upper arm, initial encounter S40.862A and Left arm cellulitis L03.114 [place] [address] [address] Oct, [place] [address] [address] Oct, Pain of left upper extremity M79.602 ; Anesthesia of skin R20.0 and Neck pain on left side M54.2 [facility] [address] [address] Oct, [place] [address] [address] September, [place] [address] [address] September, Other spondylosis with myelopathy, cervical region M47.12 [place] [address] [place] [id number] [place] [address] Aug, Mixed emotional features as adjustment reaction F43.23 ; Attention deficit hyperactivity disorder (ADHD), combined type F90.2 and Moderate single current episode of major depressive disorder F32.1 [facility] [address] [place] [id number] [place] [address] Aug, Moderate single current episode of major depressive disorder F32.1 and 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 [place] [address] [address] Aug, Mixed emotional features as adjustment reaction F43.23 and Attention deficit hyperactivity disorder (ADHD), combined type F90.2 [place] [address] [place] [id number] [place] [address] Aug, Mixed emotional features as adjustment reaction F43.23 and Attention deficit hyperactivity disorder (ADHD), combined type F90.2 [facility] [address] [place] [address] Jul, Attention deficit hyperactivity disorder (ADHD), combined type F90.2 and Mixed emotional features as adjustment reaction F43.23 [facility] [address] [place] [id number] [place] [address] Mar, [facility] [address] [place] [id number] [place] [address] Mar, [facility] [address] [place] [id number] [place] [address] Mar, Attention deficit hyperactivity disorder (ADHD), combined type F90.2 [place] [address] [place] [id number] [place] [address] Nov, Dental examination Z01.20 [place] [address] [place] [id number] [place] [address] Nov, [place] [address] [place] [id number] [place] [address] Oct, Well woman exam with routine gynecological exam Z01.419 ; Vaginal discharge N89.8 ; Encounter for counseling regarding contraception Z30.9 and Screening breast examination Z12.39 [facility] [address] [address] Oct, Diarrhea, unspecified type R19.7 ; Dysuria R30.0 ; Nausea R11.0 and Periumbilical abdominal pain R10.33 [place] [address] [place] [id number] [address] Oct, [facility] [address] [place] [id number] [place] [address] Oct, [place] [address] [place] [id number] [place] [address] Oct, Mixed emotional features as adjustment reaction F43.23 and Attention deficit disorder F90.0 [facility] [address] [place] [id number] [place] [address] Oct, [facility] [address] [address] Aug, Mixed emotional features as adjustment reaction F43.23 and Attention deficit disorder F90.0 [place] [address] [address] Aug, Mixed emotional features as adjustment reaction F43.23 ; Attention deficit disorder F90.0 and Wellness examination Z00.00 [place] [address] [address] Aug, Mixed emotional features as adjustment reaction F43.23 and Attention deficit disorder F90.0 [place] [address] [address] Jul, Mixed emotional features as adjustment reaction F43.23 [place] [address] [address] Jul, Mixed emotional features as adjustment reaction F43.23 [place] [address] [address] Jun, Anxiety disorder, unspecified F41.9 [place] [address] [address] May, Pain in thoracic spine M54.6 [place] [address] [address] Feb, Allergy, unspecified, initial encounter T78.40XA [place] [address] [address] Jan, [place] [address] [address] Jan, Environmental allergies V15.09 [place] [address] [address] Jan, Common cold 460 [facility] [address] [place] [id number] [address] Oct, Shoulder pain, left 719.41 and 12 weeks gestation of V22.2 [facility] [address] [place] [address] September, test positive V72.42 [facility] [address] [place] [id number] [place] [address] Aug, [facility] [address] [facility] [id number] [address] Aug, [facility] [address] [place] [id number] [address] Mar, [facility] [address], [place] [address] Mar, [facility] [address] [place] [id number] [place] [address]- [address] Feb, [facility] [address] [place] [id number] [address] Feb, [facility] [address] Nov, [facility] [address] [place] [id number] [address] Nov, [facility] [address] [place] [id number] [address] Oct, [facility] [address] [facility] [id number], [place] [address] Oct, [facility] [address] [place] [id number] [address] Oct, [facility] [address] [place] [id number] [address] Oct, [facility] [address], [place] [address] September, [facility] [place] [facility] [address] [id number] [place] [address]- [address] September, [facility] [place] [facility] [address] [id number] [place] [address]- 7169 September, [facility] [place] [facility] [address] [id number] [place] [address]- 5441 September, [facility] [place] [facility] [address] [id number] [place] [address]- 8637 Aug, [facility] [place] [facility] [address] [id number] [place] [address]- 1736 Aug, [facility] [place] [facility] [address] [id number] [place] [address]- 9285 Aug, [facility] [place] [facility] [address] [id number] [place] [address]- 3[address] Aug, [facility] [place] [facility] [address] [id number] [place] [address]- 6091 Aug, [facility] [place] [facility] [address] [id number] [place] [address]- 2708 Aug, [facility] [place] [facility] [address] [id number] [place] [address]- 3510 Aug, [facility] [place] [facility] [address] [id number] [place] [address]- 0130 Aug, [facility] [place] [facility] [address] [id number] [place] [address]- 0273 Jul, [facility] [place] [facility] [address] [id number] [place] [address]- 5967 Jul, [facility] [place] [facility] [address] [id number] [place] [address]- 8729 Aug, [facility] [place] [facility] [address] [id number] [place] [address]- 0557 Jun, [facility] [place] [facility] [address] [id number] [place] [address]- 0103 May, [facility] [place] [facility] [address] [id number] [place] [address]- 9577 Nov, [facility] [place] [facility] [address] [id number] [place] [address]- 1724 Nov, [facility] [place] [facility] [address] [id number] [place] [address]- 6220 Nov, [facility] [place] [facility] [address] [id number] [place] [address]- 7006 September, [facility] [place] [facility] [address] [id number] [place] [address]- 2448 Aug, [facility] [place] [facility] [address] [id number] [place] [address]- 4298 Aug, [facility] [place] [facility] [address] [id number] [place] [address]- 2963 Jun, [facility] [place] [facility] [address] [id number] [place] [address]- 9784 Apr, [facility] [place] [facility] [address] [id number] [place] [address]- 3158 Apr, [facility] [place] [facility] [address] [id number] [place] [address]- 8327 Apr, [facility] [place] [facility] [address] [id number] [place] [address]- [address] 30 Mar, 2011 [facility] [place] [facility] [address] [id number] [place] [address]- 8347 16 Mar, 2011 [facility] [place] [facility] [address] [id number] [place] [address]- 7379 Mar, [facility] [place] [facility] [address] [id number] [place] [address]- 9431 31 Feb, 2011 [facility] [place] [facility] [address] [id number] [place] [address]- 284[address] Feb, [facility] [address] [id number], [place] [address] 10 Feb, 2011 [facility] [address] [facility] [id number], [place] [address]- [address] 14 Jan, 2011 [facility] [address], [place] [address]- [address] May, [facility] [address] [place] [id number] [address]- [address] Apr, [facility] [address] [facility] [id number], [place] [address]- [address]46 Apr, [facility] [address] [place] [id number] [place] [address]- [address] Mar, [facility] [address], [place] [address]- 25[address] Mar, [facility] [address], [place] [address] 2546 Mar, [facility] [address] [place] [id number], [place] [address]- 1037 Feb, [facility] [address], [place] [address]- 6[address] Feb, [facility] [address], [place] [address]- 69[address] Feb, [facility] [address] [id number] [address]- [address] Feb, [facility] [address] [id number], [place] [address]- 6[address] Feb, IMMUNIZATIONS No Known Immunizations SOCIAL HISTORY Never Assessed REASON FOR VISIT SOB, feels like its hard to take a breath, pain in the center of her chest. this has been going on for 11 years. pt denies being sick...just wants to figure out what is going on for the past 11 years. araceli, will get an [facility] appt for pt for further eval. PLAN OF CARE VITAL SIGNS Height 62 in 2017-09-10 Weight 127.0 lbs 2017-09-10 Temperature 98.1 degrees Fahrenheit 2017-09-10 Heart Rate 80 bpm 2017-09-10 Respiratory Rate 20 2017-09-10 Oximetry on room air:100 % 2017-09-10 BMI 23.23 kg/m2 2017-09-10 Blood pressure systolic 110 mmHg 2017-09-10 Blood pressure diastolic 64 mmHg 2017-09-10 MEDICATIONS Unknown Medications RESULTS No Results PROCEDURES [...]
--- OUTSIDE RECORDS SUMMARY | 2018-01-31 19:21 | XMS REPORT ---
Author Author HAKAN BALBUENA [facility] Address [address] [place] [address] Care Team Providers Care Cash Management Specialist Name Role Phone HAKAN BALBUENA Unavailable PROBLEMS Type Condition ICD9-CM Code ZMB80-IU Code Onset Dates Condition Status SNOMED Code Problem Other spondylosis with myelopathy, cervical region M47.12 Active 73896350 Problem Attention deficit disorder F90.0 Active 870851461 Problem Mixed emotional features as adjustment reaction F43.23 Active 80827743 Problem Anesthesia of skin R20.0 Active 89236078 Problem Neck pain on left side M54.2 Active 92753354 Problem Moderate single current episode of major depressive disorder F32.1 Active 07896462 Problem Attention deficit hyperactivity disorder (ADHD), combined type F90.2 Active 43791360 Problem Pain of left upper extremity M79.602 Active 801167573 Problem 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 Active 58827192 ALLERGIES Substance Reaction Event Type Date Status Celexa nausea Drug Allergy May, Active Adderall hallucinations Drug Allergy May, Active ENCOUNTERS Encounter Location Date Diagnosis [facility] [address] [place] [address] Oct, Right foot pain M79.671 [facility] [address] [place] [address] September, Urticaria L50.9 [facility] [address] [place] [id number] [place] [address] September, Allergic contact dermatitis due to plants, except food L23.7 [facility] [address] [address] September, Allergic contact dermatitis due to plants, except food L23.7 [facility] [address] [id number] [place] [address] Aug, [facility] WALK IN [address] [address] 05 Jun, 2017 Bronchitis J40 [facility] WALK IN [place] [address] [address] 14 May, 2017 Fever, unspecified fever cause R50.9 and Influenza A J10.[address] [address] Apr, [address] [address] Apr, [address] [address] Apr, Routine gynecological examination Z01.[address] [address] Feb, Allergic contact dermatitis due to plants, except food L23.[address] [address] Dec, Diarrhea of presumed infectious origin A09 ; Bilious vomiting with nausea R11.14 and 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 [facility] [place] [id number] [place] [address] Nov, Insect bite (nonvenomous) of left upper arm, initial encounter S40.862A and Left arm cellulitis L03.114 [place] [id number] [place] [address] Oct, [address] [address] 15 Oct, 2016 Pain of left upper extremity M79.602 ; Anesthesia of skin R20.0 and Neck pain on left side M54.[address] [address] Oct, [facility] [address] [address] September, [facility] [address] [address] September, Other spondylosis with myelopathy, cervical region M47.12 [facility] [address] [address] Aug, Mixed emotional features as adjustment reaction F43.23 ; Attention deficit hyperactivity disorder (ADHD), combined type F90.2 and Moderate single current episode of major depressive disorder F32.1 [facility] [address] [address] Aug, Moderate single current episode of major depressive disorder F32.1 and 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 [facility] [address] [place] [address] Aug, Mixed emotional features as adjustment reaction F43.23 and Attention deficit hyperactivity disorder (ADHD), combined type F90.2 [facility] [address] [address] Aug, Mixed emotional features as adjustment reaction F43.23 and Attention deficit hyperactivity disorder (ADHD), combined type F90.2 [facility] [address] [address] Jul, Attention deficit hyperactivity disorder (ADHD), combined type F90.2 and Mixed emotional features as adjustment reaction F43.23 [facility] [address] [address] Mar, [facility] [address] [address] Mar, [facility] [address] [address] Mar, Attention deficit hyperactivity disorder (ADHD), combined type F90.2 [facility] [address], [place] [address] 18 Nov, 2015 Dental examination Z01.20 [facility] [address] [place] [id number] [place] [address] 06 Nov, 2015 [facility] [id number] [address] 27 Oct, 2015 Well woman exam with routine gynecological exam Z01.419 ; Vaginal discharge N89.8 ; Encounter for counseling regarding contraception Z30.9 and Screening breast examination Z12.39 [facility] [address] [place] [address] 23 Oct, 2015 Diarrhea, unspecified type R19.7 ; Dysuria R30.0 ; Nausea R11.0 and Periumbilical abdominal pain R10.33 [place] [address] [id number] [place] [address] Oct, [place] [address] [place] [id number] [place] [address] Oct, [facility] [address] [place] [id number] [place] [address] Oct, Mixed emotional features as adjustment reaction F43.23 and Attention deficit disorder F90.0 [place] [address] [place] [address] Oct, [place] [address] [place] [id number] [place] [address] Aug, Mixed emotional features as adjustment reaction F43.23 and Attention deficit disorder F90.0 [place] [address] [place] [address] Aug, Mixed emotional features as adjustment reaction F43.23 ; Attention deficit disorder F90.0 and Wellness examination Z00.00 [place] [address] [place] [address] Aug, Mixed emotional features as adjustment reaction F43.23 and Attention deficit disorder F90.0 [place] [address] [place] [id number] [place] [address] Jul, Mixed emotional features as adjustment reaction F43.23 [place] [address] [address] Jul, Mixed emotional features as adjustment reaction F43.23 [place] [address] [address] Jun, Anxiety disorder, unspecified F41.9 [place] [address] [address] May, Pain in thoracic spine M54.6 [place] [address] [address] Feb, Allergy, unspecified, initial encounter T78.40XA [address] [address] Jan, [place] [address] [address] Jan, Environmental allergies V15.[address] [address] Jan, Common cold 460 [place] [address] [address] Oct, Shoulder pain, left 719.41 and 12 weeks gestation of V22.2 [place] [address] [place] [id number] [place] [address] September, test positive V72.42 [place] [address] [address]- [address] Aug, [place] [address] [address] Aug, [place] [address] [place] [id number] [place] [address] Mar, [facility] [place] [facility] [address] [id number] [place] [address] Mar, [facility] [place] [facility] [address] [id number] [place] [address] 49[address] Feb, [facility] [place] [facility] [address] [id number] [place] [address] 2[address] Feb, [facility] [place] [facility] [address] [id number] [place] [address] 9570 Nov, [facility] [place] [facility] [address] [id number] [place] [address] Nov, [facility] [place] [facility] [address] [id number] [place] [address]- 9028 Oct, [facility] [place] [facility] [address] [id number] [place] [address] Oct, [facility] [place] [facility] [address] [id number] [place] [address] 6310 Oct, [facility] [place] [facility] [address] [id number] [place] [address] 1251 Oct, [facility] [place] [facility] [address] [id number] [place] [address] 78[address] September, [facility] [place] [facility] [address] [id number] [place] [address] 1073 September, [facility] [place] [facility] [address] [id number] [place] [address] 4661 September, [facility] [place] [facility] [address] [id number] [place] [address] 69[address] September, [facility] [place] [facility] [address] [id number] [place] [address]- 0258 Aug, [facility] [place] [facility] [address] [id number] [place] [address]- 1773 Aug, [facility] [place] [facility] [address] [id number] [place] [address]- 3463 Aug, [facility] [place] [facility] [address] [id number] [place] [address]- 6581 Aug, [facility] [place] [facility] [address] [id number] [place] [address]- 3968 Aug, [facility] [place] [facility] [address] [id number] [place] [address] 3431 Aug, [facility] [place] [facility] [address] [id number] [place] [address]- 4890 Aug, [facility] [place] [facility] [address] [id number] [place] [address]- 5669 Aug, [facility] [place] [facility] [address] [id number] [place] [address]- 2173 Jul, [facility] [place] [facility] [address] [id number] [place] [address]- 8580 Jul, [facility] [place] [facility] [address] [id number] [place] [address]- 9801 Aug, [facility] [place] [facility] [address] [id number] [place] [address]- 8363 Jun, [facility] [place] [facility] [address] [id number] [place] [address]- 4112 May, [facility] [place] [facility] [address] [id number] [place] [address]- 4675 Nov, [facility] [place] [facility] [address] [id number] [place] [address]- 5582 Nov, [facility] [place] [facility] [address] [id number] [place] [address]- 4848 Nov, [facility] [place] [facility] [address] [id number] [place] [address]- 0110 September, [facility] [place] [facility] [address] [id number] [place] [address]- 2682 Aug, [facility] [place] [facility] [address] [id number] [place] [address] 254 06 Aug, 2011 [facility] [address] [id number] [place] [address]- [address] 07 Jun, 2011 [facility] [address] [id number] [place] [address]- 6076 Apr, [facility] [address] [id number] [place] [address]- 5084 Apr, [facility] [address] [id number] [place] [address]- 2050 Apr, [facility] [address] [id number] [place] [address], [place] [address]- [address] 30 Mar, 2011 [facility] [address] [facility] [id number] [place] [address]- 9817 16 Mar, 2011 [facility] [address] [facility] [id number] [place] [address], [place] [address]- [address] Mar, [facility] [address] [id number] [place] [address]- [address] 31 Feb, 2011 [facility] [address] [facility] [id number] [place] [address]- 0[address] 11 Feb, 2011 [facility] [address] [facility] [id number] [place] [address]- 9564 10 Feb, 2011 [facility] [address] [id number] [place] [address]- 76[address] 14 Jan, 2011 [facility] [address] [id number] [place] [address]- 5753 13 May, 2009 [facility] [place] [facility] [address] [id number] [place] [address]- 6425 Apr, [facility] [place] [facility] [address] [id number] [place] [address]- 2546 Apr, [facility] [address] [id number] [place] [address]- 9826 Mar, [facility] [address] [facility] [id number], [place] [address]- [address] Mar, [facility] [address] [place] [id number] [address] Mar, [facility] [address] [place] [id number] [address] Feb, [facility] [address] [address] Feb, [facility] [address] [place] [id number] [address]- 0469 Feb, [facility] [address] [place] [address]- 27[address] Feb, [facility] [address] [place] [id number] [address] Feb, IMMUNIZATIONS No Known Immunizations SOCIAL HISTORY Never Assessed REASON FOR VISIT Headache, sore throat, chest burning with cough, runny nose started a couple days ago JStrasserRN PLAN OF CARE Activity Details Follow Up prn Reason: VITAL SIGNS Height 62 in 2017-05-27 Weight 128 lbs 2017-05-27 Temperature 100.9 degrees Fahrenheit 2017-05-27 Heart Rate 104 bpm 2017-05-27 Respiratory Rate 22 2017-05-27 BMI 23.41 kg/m2 2017-05-27 Blood pressure systolic 100 mmHg 2017-05-27 Blood pressure diastolic 60 mmHg 2017-05-27 MEDICATIONS Medication Instructions Dosage Frequency Start Date End Date Duration Status Tamiflu 75 MG Orally Twice a day 1 capsule 12h May, 5 day(s) Active Tylenol 325 MG Orally every 6 hrs 2 tablets as needed 6h Active Mucinex Fast-Max Congest Cold Active RESULTS Name Result Date Reference Range INFLUENZA A & B (IN HOUSE) 2017-05-27 INFLUENZA A negative INFLUENZA B negative Control + Lot # [id number] Exp date 2019-09-05 PROCEDURES Procedure Date Ordered Result Body Site INFLUENZA ASSAY W/OPTIC May 27, 2017 INSTRUCTIONS MEDICATIONS ADMINISTERED No Known Medications MEDICAL (GENERAL) HISTORY Type Description Date Medical History Heart Murmur Medical History Hives or Eczema Medical History Anemia Medical History Head, neck, jaw injuries Medical History depression Surgical History wisdom teeth extraction Hospitalization History of daughter 09/2012 Hospitalization History 05/02/2015
--- OUTSIDE RECORDS SUMMARY | 2018-01-31 19:21 | XMS REPORT ---
Author Author MARCIE JOHNSON Organization [employer] Address Unknown Phone Unavailable Care Team Providers Care Air Sealing Technician Name Role Phone MARCIE JOHNSON CP Unavailable Allergies No Known Allergies Problems Problem Type Condition Code Onset Dates Condition Status Assessment Attention deficit disorder F90.0 Active Problem Closed fracture of metacarpal bone(s), site unspecified 815.00 Active Assessment Mixed emotional features as adjustment reaction F43.23 Active Problem Mixed emotional features as adjustment reaction F43.23 Active Problem Cervicalgia 723.1 Active Problem Attention deficit disorder F90.0 Active Problem Unspecified fall E888.9 Active Problem Pediatric pre- visit for expectant mother V65.11 Active Problem Spasm of muscle 728.85 Active Problem Pain in soft tissues of limb 729.5 Active Medications No Known Medications Procedures Procedure Coding System Code Date Psychotherapy, patient &/family, 30 minutes, established patient CPT-4 [id number] August 24, 2015 Results No Known Results Summary Purpose TransmensioninicalAdReady Submission
--- OUTSIDE RECORDS SUMMARY | 2018-01-31 19:21 | XMS REPORT ---
Author Author [facility] [facility] Address [address] [place] [address] Phone Unavailable Care Team Providers Care Affiliate Marketing Coordinator Name Role Phone [place] Unavailable Unavailable PROBLEMS Type Condition ICD9-CM Code GLE42-VZ Code Onset Dates Condition Status SNOMED Code Problem Abnormal TSH R79.89 Active 824965515 Problem History of anemia Z86.2 Active 654930824 Problem Moderate single current episode of major depressive disorder F32.1 Active 86102738 Problem Other spondylosis with myelopathy, cervical region M47.12 Active 04447961 Problem Other chronic pain G89.29 Active 93615876 Problem Chronic fatigue R53.82 Active 93020509 ALLERGIES Substance Reaction Event Type Date Status Celexa nausea Drug Allergy September, Active Adderall hallucinations Drug Allergy September, Active ENCOUNTERS Encounter Location Date Diagnosis [place] [address] [address] Nov, [place] [address] [address] Nov, Bee sting, accidental or unintentional, initial encounter T63.441A [place] [address] [place] [id number] [place] [address] Nov, Abnormal TSH R79.89 [facility] [address] [address] Oct, Moderate single current episode of major depressive disorder F32.1 ; History of anemia Z86.2 and Chronic fatigue R53.82 [facility] [address] [place] [id number] [place] [address] Oct, [facility] [address] [place] [id number] [place] [address]70- [address]226 Oct, Moderate single current episode of major depressive disorder F32.1 ; History of anemia Z86.2 ; Nausea R11.0 ; Chronic fatigue R53.82 ; Other chronic pain G89.29 and Pain in left shoulder M25.512 [facility] [address] [place] [address] Oct, Right foot pain M79.671 [facility] [address] [place] [address] September, Urticaria L50.9 [facility] [address] [place] [address] September, Allergic contact dermatitis due to plants, except food L23.7 [facility] [address] [place] [address] September, Allergic contact dermatitis due to plants, except food L23.[address] [facility] [address] [address] Aug, [facility] [address] [place] [address] Jun, Bronchitis [address] [facility] [address] [address] May, Fever, unspecified fever cause R50.9 and Influenza A J10.[address] [address] Apr, [address] [address] Apr, [address] [address] Apr, Routine gynecological examination Z01.[address] [address] Feb, Allergic contact dermatitis due to plants, except food L23.[address] [address] Dec, Diarrhea of presumed infectious origin A09 ; Bilious vomiting with nausea R11.14 and 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 [facility] [address] [place] [id number] [place] [address] Nov, Insect bite (nonvenomous) of left upper arm, initial encounter S40.862A and Left arm cellulitis L03.114 [place] [address] [address] Oct, [place] [address] [address] Oct, Pain of left upper extremity M79.602 ; Anesthesia of skin R20.0 and Neck pain on left side M54.2 [facility] [address] [place] [id number] [place] [address] 9[address] Oct, [place] [address] [address] September, [place] [address] [place] [id number] [place] [address]- [address] September, Other spondylosis with myelopathy, cervical region M47.12 [place] [address] [place] [id number] [place] [address]- [address]84 Aug, Mixed emotional features as adjustment reaction F43.23 ; Attention deficit hyperactivity disorder (ADHD), combined type F90.2 and Moderate single current episode of major depressive disorder F32.1 [facility] [address] [place] [id number] [place] [address] 06702- 1741 Aug, Moderate single current episode of major depressive disorder F32.1 and 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 [place] [address] [place] [id number] [place] [address] 47806- 1246 Aug, Mixed emotional features as adjustment reaction F43.23 and Attention deficit hyperactivity disorder (ADHD), combined type F90.2 [place] [address] [place] [address] Aug, Mixed emotional features as adjustment reaction F43.23 and Attention deficit hyperactivity disorder (ADHD), combined type F90.2 [place] [address] [place] [id number] [place] [address] 45692- 5739 Jul, Attention deficit hyperactivity disorder (ADHD), combined type F90.2 and Mixed emotional features as adjustment reaction F43.23 [place] [address] [place] [id number] [place] [address]21- [address] Mar, [facility] [address] [place] [id number] [place] [address] 45343- 3003 Mar, [place] [address] [place] [id number] [place] [address] 35035- 0099 Mar, Attention deficit hyperactivity disorder (ADHD), combined type F90.2 [place] [address] [place] [id number] [place] [address] 67097- 6009 Nov, Dental examination Z01.20 [place] [address] [place] [id number] [place] [address] 6[address]26- 74[address] Nov, [place] [address] [place] [id number] [place] [address]27- 3794 Oct, Well woman exam with routine gynecological exam Z01.419 ; Vaginal discharge N89.8 ; Encounter for counseling regarding contraception Z30.9 and Screening breast examination Z12.39 [facility] [address] [place] [id number] [place] [address] Oct, Diarrhea, unspecified type R19.7 ; Dysuria R30.0 ; Nausea R11.0 and Periumbilical abdominal pain R10.33 [place] [address] [place] [id number] [place] [address] 78[address]- [address] Oct, [facility] [address] [place] [id number] [place] [address] 79792- 7472 Oct, [place] [address] [place] [id number] [place] [address] 05130- 2744 Oct, Mixed emotional features as adjustment reaction F43.23 and Attention deficit disorder F90.0 [place] [address] [address]- [address] Oct, [place] [address] [place] [id number] [place] [address] 92150- [address] Aug, Mixed emotional features as adjustment reaction F43.23 and Attention deficit disorder F90.0 [place] [address] [address]- [address] Aug, Mixed emotional features as adjustment reaction F43.23 ; Attention deficit disorder F90.0 and Wellness examination Z00.00 [place] [address] [address] Aug, Mixed emotional features as adjustment reaction F43.23 and Attention deficit disorder F90.0 [place] [address] [address]- [address] Jul, Mixed emotional features as adjustment reaction F43.23 [place] [address] 48[address]- [address] Jul, Mixed emotional features as adjustment reaction F43.23 [place] [address] [place] [id number] [place] [address] 16301- [address]39 Jun, Anxiety disorder, unspecified F41.9 [place] [address] [address] May, Pain in thoracic spine M54.6 [place] [address] [address]- [address] Feb, Allergy, unspecified, initial encounter T78.40XA [place] [address] [address] Jan, [place] [address] [address] Jan, Environmental allergies V15.09 [place] [address] [place] [id number] [place] [address] Jan, Common cold 460 [facility] [address] [place] [address] Oct, Shoulder pain, left 719.41 and 12 weeks gestation of V22.2 [facility] [address] [place] [address] September, test positive V72.42 [facility] [address] [facility] [id number] [place] [address] Aug, [facility] [address] [place] [id number] [place] [address], [place] [address]- [address] Aug, [facility] [address] [place] [address]- [address] Mar, [facility] [address] [place] [address], [place] [address]- [address] Mar, [facility] [address] [place] [id number] [address]- [address] Feb, [facility] [address] [place] [address]- 5747 Feb, [facility] [address] [address]- 1662 Nov, [facility] [address] [address]- 8468 Nov, [facility] [address] [facility] [id number] [address]- 4110 Oct, [facility] [address] [place] [id number] [place] [address]- 3966 Oct, [facility] [address] [place] [id number] [address]- 4853 Oct, [facility] [address] [address] Oct, [facility] [place] [facility] [address] [id number] [place] [address]- 6[address] September, [facility] [place] [facility] [address] [id number] [place] [address]- 7851 September, [facility] [place] [facility] [address] [id number] [place] [address]- 3681 September, [facility] [place] [facility] [address] [id number] [place] [address]- 1628 September, [facility] [place] [facility] [address] [id number] [place] [address]- 9332 Aug, [facility] [place] [facility] [address] [id number] [place] [address]- 0448 Aug, [facility] [place] [facility] [address] [id number] [place] [address]- 0754 Aug, [facility] [place] [facility] [address] [id number] [place] [address]- 1459 Aug, [facility] [place] [facility] [address] [id number] [place] [address]- 9163 Aug, [facility] [place] [facility] [address] [id number] [place] [address]- 3643 Aug, [facility] [place] [facility] [address] [id number] [place] [address]- 5247 Aug, [facility] [place] [facility] [address] [id number] [place] [address]- 0318 Aug, [facility] [place] [facility] [address] [id number] [place] [address]- 1435 Jul, [facility] [place] [facility] [address] [id number] [place] [address]- 0627 Jul, [facility] [place] [facility] [address] [id number] [place] [address]- 1182 Aug, [facility] [place] [facility] [address] [id number] [place] [address]- 2223 Jun, [facility] [address] [id number] [place] [address]- 4945 May, [facility] [place] [facility] [address] [id number] [place] [address]- 5327 Nov, [facility] [place] [facility] [address] [id number] [place] [address]- 7797 Nov, [facility] [place] [facility] [address] [id number] [place] [address]- 0014 Nov, [facility] [place] [facility] [address] [id number] [place] [address]- 2008 September, [facility] [place] [facility] [address] [id number] [place] [address]- 9961 Aug, [facility] [address] [id number] [place] [address]- 8456 Aug, [facility] [place] [facility] [address] [id number] [place] [address]- 9977 Jun, [facility] [place] [facility] [address] [id number] [place] [address]- 7915 Apr, [facility] [place] [facility] [address] [id number] [place] [address]- 3495 Apr, [facility] [place] [facility] [address] [id number] [place] [address]- 8154 Apr, [facility] [place] [facility] [address] [id number] [place] [address]- 9696 30 Mar, 2011 [facility] [place] [facility] [address] [id number] [place] [address]- 0202 16 Mar, 2011 [facility] [place] [facility] [address] [id number] [place] [address]- 6355 Mar, [facility] [place] [facility] [address] [id number] [place] [address]- 4920 31 Feb, 2011 [facility] [address] [facility] [id number] [address]- [address] 11 Feb, 2011 [facility] [address] [address]- 8939 Feb, [facility] [address] [address]- 12[address] 14 Jan, 2011 [facility] [address] [place] [address]- 1002 May, [facility] [address] [facility] [id number] [address]- 8914 Apr, [facility] [id number] [place] [address] 38[address]- 3229 Apr, [facility] [address] [address] Mar, [facility] [address] [address]- 0956 Mar, [facility] [address] [address]- 9657 Mar, [facility] [address] [address]- 4779 Feb, [facility] [address] [address]- 8110 Feb, [facility] [address] [address]- 9091 Feb, [facility] [address] [place] [id number] [address]- 5469 Feb, [facility] [address] Feb, IMMUNIZATIONS No Known Immunizations SOCIAL HISTORY Never Assessed REASON FOR VISIT jeny hart Pt has a poison yann rash Porter [facility] PLAN OF CARE Activity Details Follow Up prn Reason: VITAL SIGNS Height 62 in 2017-09-26 Weight 128.6 lbs 2017-09-26 Temperature 98.6 degrees Fahrenheit 2017-09-26 Heart Rate 84 bpm 2017-09-26 Respiratory Rate 20 2017-09-26 BMI 23.52 kg/m2 2017-09-26 Blood pressure systolic 106 mmHg 2017-09-26 Blood pressure diastolic 62 mmHg 2017-09-26 MEDICATIONS Medication Instructions Dosage Frequency Start Date End Date Duration Status PredniSONE 20 MG Orally Once a day 2 tablets 24h September, September, 05 days Active RESULTS No Results PROCEDURES No Known [...]
--- OUTSIDE RECORDS SUMMARY | 2018-01-31 19:22 | XMS REPORT ---
Author Author JATINDER HESS Organization [employer] Address Unknown Phone Unavailable Care Team Providers Care Rn Perioperative Name Role Phone JATINDER HESS CP Unavailable Allergies, Adverse Reactions, Alerts Substance Reaction Event Type N.K.D.A. Info Not Available Non Drug Allergy Problems Problem Type Condition Code Onset Dates Condition Status Problem Major depressive disorder, recurrent episode, moderate 296.32 Active Assessment Pain in thoracic spine M54.6 Active Problem Spasm of muscle 728.85 Active Problem Pain in soft tissues of limb 729.5 Active Problem Cervicalgia 723.1 Active Problem Closed fracture of metacarpal bone(s), site unspecified 815.00 Active Problem Posttraumatic stress disorder 309.81 Active Problem Unspecified fall E888.9 Active Problem Pediatric pre- visit for expectant mother V65.11 Active Medications Medication Code System Code Instructions Start Date End Date Status Dosage [facility] [address]3812 28-0.8 MG Orally not defined Procedures Procedure Coding System Code Date Office Visit, Est Pt., Level 3 CPT-4 11344 Jun 02, 2015 X-RAY EXAM OF THORACIC SPINE CPT-4 66724 Jun 02, 2015 Vital Signs Date/Time: Jun 02, 2015 Temperature 98.4 F Weight 136.2 lbs Height 62 in BMI 24.91 Index Blood Pressure Diastolic 66 mmHg Blood Pressure Systolic 110 mmHg Cardiac Monitoring Heart Rate 72 bpm Results No Known Results Summary Purpose [employer] Submission
--- OUTSIDE RECORDS SUMMARY | 2018-01-31 19:22 | XMS REPORT ---
Author Author HOWIE SMITH Organization [employer] Address Unknown Phone Unavailable Care Team Providers Care Photo Graphics Librarian Name Role Phone HOWIE SMITH CP Unavailable Allergies, Adverse Reactions, Alerts Substance Reaction Event Type N.K.D.A. Info Not Available Non Drug Allergy Problems Problem Type Condition Code Onset Dates Condition Status Problem Major depressive disorder, recurrent episode, moderate 296.32 Active Assessment Allergy, unspecified, initial encounter T78.40XA Active Problem Spasm of muscle 728.85 Active Problem Pain in soft tissues of limb 729.5 Active Problem Cervicalgia 723.1 Active Problem Closed fracture of metacarpal bone(s), site unspecified 815.00 Active Problem Posttraumatic stress disorder 309.81 Active Problem Unspecified fall E888.9 Active Problem Pediatric pre- visit for expectant mother V65.11 Active Medications Medication Code System Code Inst[place] [address]26 28-0.8 MG Orally not defined Chlor-Tablets NDC 0 not defined Procedures Procedure Coding System Code Date Office Visit, Est Pt., Level 3 CPT-4 66049 Feb 15, 2015 Vital Signs Date/Time: Feb 15, 2015 Temperature 97.8 F Weight 134.6 lbs Height 62 in BMI 24.62 Index Blood Pressure Diastolic 56 mmHg Blood Pressure Systolic 108 mmHg Cardiac Monitoring Heart Rate 72 bpm Results No Known Results Summary Purpose [employer] Submission
--- OUTSIDE RECORDS SUMMARY | 2018-01-31 19:22 | XMS REPORT ---
Author Author MARCIE JOHNSON Organization [employer] Address Unknown Phone Unavailable Care Team Providers Care Pharmacy Messenger Name Role Phone MARCIE JOHNSON CP Unavailable Allergies No Known Allergies Problems Problem Type Condition Code Onset Dates Condition Status Problem Mixed emotional features as adjustment reaction F43.23 Active Assessment Mixed emotional features as adjustment reaction F43.23 Active Problem Attention deficit disorder F90.0 Active Assessment Attention deficit disorder F90.0 Active Medications No Known Medications Procedures Procedure Coding System Code Date Psychotherapy, patient &/family, 45 minutes, established patient CPT-4 03440 September 07, 2015 Results No Known Results Summary Purpose [employer] Submission
--- OUTSIDE RECORDS SUMMARY | 2018-01-31 19:22 | XMS REPORT ---
Author Author JAJA MAIER [facility] Address [address] [place] [address] Care Team Providers Care Purse Maker Name Role Phone JAJA MAIER Unavailable PROBLEMS Type Condition ICD9-CM Code [id number] Code Onset Dates Condition Status SNOMED Code Problem Other spondylosis with myelopathy, cervical region M47.12 Active 78562741 Problem Attention deficit disorder F90.0 Active 012910323 Problem Mixed emotional features as adjustment reaction F43.23 Active 46780640 Problem Anesthesia of skin R20.0 Active 11641624 Problem Neck pain on left side M54.2 Active 45609211 Problem Moderate single current episode of major depressive disorder F32.1 Active 32963399 Problem Attention deficit hyperactivity disorder (ADHD), combined type F90.2 Active 32264865 Problem Pain of left upper extremity M79.602 Active 480527917 Problem 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 Active 26008986 ALLERGIES No Information ENCOUNTERS Encounter Location Date Diagnosis [facility] [id number] [place] [address] Oct, [facility] [id number] [place] [address] September, Urticaria L50.9 [facility] [address] [address] September, Allergic contact dermatitis due to plants, except food L23.7 [facility] [id number] [place] [address] September, Allergic contact dermatitis due to plants, except food L23.7 [facility] [id number] [place] [address] Aug, [facility] [id number] [place] [address] 05 Jun, 2017 Bronchitis J40 [facility] [address] [address] May, Fever, unspecified fever cause R50.9 and Influenza A J10.1 [place] [address] [address] Apr, [place] [address] [address] Apr, [place] [address] [address] Apr, Routine gynecological examination Z01.419 [place] [address] [address] Feb, Allergic contact dermatitis due to plants, except food L23.[address] [address] Dec, Diarrhea of presumed infectious origin A09 ; Bilious vomiting with nausea R11.14 and 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 [facility] [place] [address] [address] Nov, Insect bite (nonvenomous) of left upper arm, initial encounter S40.862A and Left arm cellulitis L03.[address] [address] Oct, [address] [address] 15 Oct, 2016 Pain of left upper extremity M79.602 ; Anesthesia of skin R20.0 and Neck pain on left side M54.2 [place] [address] [address] Oct, [place] [address] [address] September, [place] [id number] [address] September, Other spondylosis with myelopathy, cervical region M47.12 [facility] [id number] [place] [address] Aug, Mixed emotional features as adjustment reaction F43.23 ; Attention deficit hyperactivity disorder (ADHD), combined type F90.2 and Moderate single current episode of major depressive disorder F32.1 [facility] [id number] [place] [address]71- 12[address] Aug, Moderate single current episode of major depressive disorder F32.1 and 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 [place] [id number] [place] [address]31[address] 27[address] Aug, Mixed emotional features as adjustment reaction F43.23 and Attention deficit hyperactivity disorder (ADHD), combined type F90.2 [place] [address] [place] [address] 58135- 0620 Aug, Mixed emotional features as adjustment reaction F43.23 and Attention deficit hyperactivity disorder (ADHD), combined type F90.2 [place] [id number] [place] [address]283- 4826 Jul, Attention deficit hyperactivity disorder (ADHD), combined type F90.2 and Mixed emotional features as adjustment reaction F43.23 [place] [address] [address] Mar, [facility] [id number] [place] [address]- [address] Mar, [place] [id number] [place] [address] 28996- 4314 Mar, Attention deficit hyperactivity disorder (ADHD), combined type F90.2 [place] [id number] [place] [address] 89670- 2198 Nov, Dental examination Z01.20 [place] [id number] [place] [address] 58166- 0[address] Nov, [facility] [id number] [place] [address]99- 75[address] 27 Oct, 2015 Well woman exam with routine gynecological exam Z01.419 ; Vaginal discharge N89.8 ; Encounter for counseling regarding contraception Z30.9 and Screening breast examination Z12.39 [facility] [id number] [place] [address] Oct, Diarrhea, unspecified type R19.7 ; Dysuria R30.0 ; Nausea R11.0 and Periumbilical abdominal pain R10.33 [place] [address] [address] Oct, [facility] [id number] [place] [address] 69918- 8861 Oct, [facility] [address] [address]- [address] Oct, Mixed emotional features as adjustment reaction F43.23 and Attention deficit disorder F90.0 [facility] [id number] [place] [address] 00005- 7606 Oct, [facility] [id number] [place] [address] 98015- 4692 Aug, Mixed emotional features as adjustment reaction F43.23 and Attention deficit disorder F90.0 [facility] [id number] [place] [address] 0[address]60- [address]12 Aug, Mixed emotional features as adjustment reaction F43.23 ; Attention deficit disorder F90.0 and Wellness examination Z00.00 [place] [address] 9[address]32- [address]64 Aug, Mixed emotional features as adjustment reaction F43.23 and Attention deficit disorder F90.0 [facility] [id number] [place] [address] 80780- 6309 Jul, Mixed emotional features as adjustment reaction F43.23 [place] [id number] [place] [address] 17728- 7794 Jul, Mixed emotional features as adjustment reaction F43.23 [place] [address] [address]24- [address]76 16 Jun, 2015 Anxiety disorder, unspecified F41.9 [place] [address] [address]- [address] May, Pain in thoracic spine M54.6 [place] [address] 23183- 2282 Feb, Allergy, unspecified, initial encounter T78.40XA [address] [address] Jan, [address] [address]- [address]14 Jan, Environmental allergies V15.[address] 71825- 5679 Jan, Common cold [address] 73636- 4408 Oct, Shoulder pain, left 719.41 and 12 weeks gestation of V22.[address] [address]34- 479[address] September, test positive V72.42 [place] [id number] [place] [address] 91816- 3042 Aug, [place] [address] 033[address] 2245 Aug, [place] [address] 92699- 5531 Mar, [place] [address] 27687- 9173 Mar, [place] [address] [place] [address] Feb, [facility] [place] [facility] [address] [id number] [place] [address]- 9[address] Feb, [facility] [place] [facility] [address] [id number] [place] [address] Nov, [facility] [place] [facility] [address] [id number] [place] [address]- 2120 Nov, [facility] [place] [facility] [address] [id number] [place] [address]- 9258 Oct, [facility] [place] [facility] [address] [id number] [place] [address]- 2791 Oct, [facility] [place] [facility] [address] [id number] [place] [address]- 8664 Oct, [facility] [place] [facility] [address] [id number] [place] [address]- 0119 Oct, [facility] [place] [facility] [address] [id number] [place] [address]- 0726 September, [facility] [place] [facility] [address] [id number] [place] [address]- 0315 September, [facility] [place] [facility] [address] [id number] [place] [address]- 4939 September, [facility] [place] [facility] [address] [id number] [place] [address]- 0722 September, [facility] [place] [facility] [address] [id number] [place] [address]- 8690 Aug, [facility] [place] [facility] [address] [id number] [place] [address]- 8761 Aug, [facility] [place] [facility] [address] [id number] [place] [address]- 7914 Aug, [facility] [place] [facility] [address] [id number] [place] [address]- 3651 Aug, [facility] [place] [facility] [address] [id number] [place] [address]- 5842 Aug, [facility] [address] [id number] [place] [address]- 4957 Aug, [facility] [place] [facility] [address] [id number] [place] [address]- 0910 Aug, [facility] [address] [id number] [place] [address]- 7106 Aug, [facility] [address] [id number] [place] [address]- 3646 Jul, [facility] [address] [id number] [place] [address]- 0379 Jul, [facility] [address] [id number] [place] [address]- 7132 Aug, [facility] [address] [id number] [place] [address]- 7616 Jun, [facility] [address] [id number] [place] [address]- 9771 May, [facility] [address] [id number] [place] [address]- 4227 Nov, [facility] [address] [id number] [place] [address]- 0541 Nov, [facility] [place] [facility] [address] [id number] [place] [address]- 0208 Nov, [facility] [place] [facility] [address] [id number] [place] [address]- 8679 September, [facility] [place] [facility] [address] [id number] [place] [address]- 6559 Aug, [facility] [place] [facility] [address] [id number] [place] [address]- 2882 Aug, [facility] [place] [facility] [address] [id number] [address] 07 Jun, 2011 [facility] [place] [facility] [address] [id number] [place] [address]- 1639 29 Apr, 2011 [facility] [place] [facility] [address] [id number] [place] [address]- 3444 Apr, [facility] [place] [facility] [address] [id number] [place] [address] Apr, [facility] [place] [facility] [address] [id number] [place] [address]- 8746 30 Mar, 2011 [facility] [place] [facility] [address] [id number] [place] [address] 16 Mar, 2011 [facility] [place] [facility] [address] [id number] [place] [address]- 0813 Mar, [facility] [place] [facility] [address] [facility] [id number] [place] [address]- 8741 31 Feb, 2011 [facility] [place] [facility] [address] [id number] [place] [address]- 5693 Feb, [facility] [place] [facility] [address] [id number] [place] [address]- 5388 10 Feb, 2011 [facility] [place] [facility] [address] [facility] [id number] [place] [address]- 5168 14 Jan, 2011 [facility] [place] [facility] [address] [id number] [address]- 7578 May, [facility] [place] [facility] [address] [id number], [place] [address]- 3383 Apr, [facility] [place] [facility] [address] [id number] [place] [address]- 3931 Apr, [facility] [place] [facility] [address] [id number] [place] [address]- 5779 20 Mar, 2009 [facility] [place] [facility] [address] [facility] [id number] [place] [address]- 6769 10 Mar, 2009 [facility] [place] [facility] [id number] [address] Mar, [facility] [id number] [address] Feb, [facility] [id number] Feb, [facility] [id number] Feb, [facility] [id number] [address]- 6799 Feb, [facility] [id number] [address]- [address] Feb, IMMUNIZATIONS No Known Immunizations SOCIAL HISTORY Never Assessed REASON FOR VISIT Lab results PLAN OF CARE VITAL SIGNS MEDICATIONS [...]
--- OUTSIDE RECORDS SUMMARY | 2018-01-31 19:22 | XMS REPORT ---
Author Author JATINDER HESS Organization [facility] Address [address] [place] [address] Care Team Providers Care Java Lead Name Role Phone JATINDER HESS Unavailable PROBLEMS Type Condition ICD9-CM Code [id number] Code Onset Dates Condition Status SNOMED Code Problem Other spondylosis with myelopathy, cervical region M47.12 Active 10293240 Problem Attention deficit disorder F90.0 Active 381223673 Problem Mixed emotional features as adjustment reaction F43.23 Active 41659659 Problem Anesthesia of skin R20.0 Active 54551585 Problem Neck pain on left side M54.2 Active 13149887 Problem Moderate single current episode of major depressive disorder F32.1 Active 51947420 Problem Attention deficit hyperactivity disorder (ADHD), combined type F90.2 Active 35027036 Problem Pain of left upper extremity M79.602 Active 812527224 Problem 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 Active 01197417 ALLERGIES No Information SOCIAL HISTORY Never Assessed PLAN OF CARE VITAL SIGNS MEDICATIONS No Known Medications RESULTS No Results PROCEDURES No Known procedures IMMUNIZATIONS No Known Immunizations MEDICAL (GENERAL) HISTORY Type Description Date Medical History Heart Murmur Medical History Hives or Eczema Medical History Anemia Medical History Head, neck, jaw injuries Medical History depression Surgical History wisdom teeth extraction Hospitalization History of daughter 09/2012 Hospitalization History 05/02/2015
--- OUTSIDE RECORDS SUMMARY | 2018-01-31 19:22 | XMS REPORT ---
Author Author JATINDER HESS [facility] eClinical[employer] Address Unknown Phone Unavailable Care Team Providers Care Staff Pharmacist Name Role Phone JATINDER HESS Unavailable Allergies No Known Allergies Problems Problem Type Condition Code Onset Dates Condition Status Problem Attention deficit disorder F90.0 Active Problem Mixed emotional features as adjustment reaction F43.23 Active Problem Attention deficit hyperactivity disorder (ADHD), combined type F90.2 Active Medications Medication Code System Code Instructions Start Date End Date Status Dosage Adderall [facility] [address]-39 20 mg Orally Once a day Apr 04, 2016 1 tablet in the morning Results No Known Results Summary Purpose eClinicalWorks Submission
--- OUTSIDE RECORDS SUMMARY | 2018-01-31 19:22 | XMS REPORT ---
Author Author JANE BLAIR Organization [facility] [place] Address [address] [place] [address] Care Team Providers Care Spanish Interpreter/Translator Name Role Phone JANE BLAIR Unavailable PROBLEMS Type Condition ICD9-CM Code TVT50-AD Code Onset Dates Condition Status SNOMED Code Problem Other spondylosis with myelopathy, cervical region M47.12 Active 82161780 Problem Attention deficit disorder F90.0 Active 740975536 Problem Mixed emotional features as adjustment reaction F43.23 Active 44646848 Problem Anesthesia of skin R20.0 Active 94783086 Problem Neck pain on left side M54.2 Active 33480788 Problem Moderate single current episode of major depressive disorder F32.1 Active 50701717 Problem Attention deficit hyperactivity disorder (ADHD), combined type F90.2 Active 99458451 Problem Pain of left upper extremity M79.602 Active 659196152 Problem 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 Active 99141719 ALLERGIES Substance Reaction Event Type Date Status Celexa nausea Drug Allergy Feb, Active Adderall hallucinations Drug Allergy Feb, Active ENCOUNTERS Encounter Location Date Diagnosis [facility] [place] [id number] [place] [address]898- 0411 September, [facility] [id number] [place] [address] 93824 -2742 Aug, [facility] [id number] [place] [address] 53781 -9894 Jun, Bronchitis J40 [facility] [id number] [place] [address] 02058 -8508 May, Fever, unspecified fever cause R50.9 and Influenza A J10.1 [facility] [place] [id number] [place] [address] 86468- 1871 Apr, [place] [id number] [place] [address] 22222- 8670 Apr, [place] [address] 9[address]25- 1640 Apr, Routine gynecological examination Z01.419 [place] [address] 38087- 2511 Feb, Allergic contact dermatitis due to plants, except food L23.7 [place] [id number] [place] [address] 25151- 4416 Dec, Diarrhea of presumed infectious origin A09 ; Bilious vomiting with nausea R11.14 and 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 [facility] [id number] [place] [address] 81924 -4148 Nov, Insect bite (nonvenomous) of left upper arm, initial encounter S40.862A and Left arm cellulitis L03.114 [place] [id number] [place] [address] 32616- 3509 Oct, [place] [address] 48066- 2546 Oct, Pain of left upper extremity M79.602 ; Anesthesia of skin R20.0 and Neck pain on left side M54.2 [place] [id number] [place] [address] 54078- 3390 Oct, [place] [id number] [place] [address] 79128- 6853 September, [place] [id number] [place] [address] 52970- 1056 September, Other spondylosis with myelopathy, cervical region M47.12 [place] [id number] [place] [address] 04733- 1494 Aug, Mixed emotional features as adjustment reaction F43.23 ; Attention deficit hyperactivity disorder (ADHD), combined type F90.2 and Moderate single current episode of major depressive disorder F32.1 [facility] [place] [address] [address] 12 Aug, 2016 Moderate single current episode of major depressive disorder F32.1 and 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 [facility] [place] [address], [place] [address] 98[address] Aug, Mixed emotional features as adjustment reaction F43.23 and Attention deficit hyperactivity disorder (ADHD), combined type F90.2 [facility] [place] [address] [place] [address] 38[address] Aug, Mixed emotional features as adjustment reaction F43.23 and Attention deficit hyperactivity disorder (ADHD), combined type F90.2 [facility] [place] [id number] [place] [address] 57386- 7786 Jul, Attention deficit hyperactivity disorder (ADHD), combined type F90.2 and Mixed emotional features as adjustment reaction F43.23 [facility] [place] [address] [place] [address] 43983- 6048 Mar, [facility] [place] [id number] [place] [address] 52681- 6250 Mar, [facility] [place] [id number] [place] [address] 84313- 4535 Mar, Attention deficit hyperactivity disorder (ADHD), combined type F90.2 [facility] [place] [address] [place] [address] 29381- 5518 Nov, Dental examination Z01.20 [facility] [place] [address] [place] [address] 11266- 1677 Nov, [place] [id number] [place] [address] 10325- 5304 Oct, Well woman exam with routine gynecological exam Z01.419 ; Vaginal discharge N89.8 ; Encounter for counseling regarding contraception Z30.9 and Screening breast examination Z12.39 [facility] [address] [place] [address] 00314 -6272 Oct, Diarrhea, unspecified type R19.7 ; Dysuria R30.0 ; Nausea R11.0 and Periumbilical abdominal pain R10.33 [place] [address] [place] [address] 44707- 1910 Oct, [facility] [place] [id number] [place] [address] 76804- 6191 Oct, [facility] [place] [id number] [place] [address] 618589- 8475 Oct, Mixed emotional features as adjustment reaction F43.23 and Attention deficit disorder F90.0 [place] [id number] [place] [address] 81185- 8295 Oct, [place] [id number] [place] [address] 72192- 2645 Aug, Mixed emotional features as adjustment reaction F43.23 and Attention deficit disorder F90.0 [place] [id number] [place] [address] 53280- 5246 Aug, Mixed emotional features as adjustment reaction F43.23 ; Attention deficit disorder F90.0 and Wellness examination Z00.00 [place] [address] [place] [address] 77241- 4843 Aug, Mixed emotional features as adjustment reaction F43.23 and Attention deficit disorder F90.0 [place] [address] [place] [address] 57276- 9253 Jul, Mixed emotional features as adjustment reaction F43.23 [place] [id number] [place] [address] 01274- 0639 Jul, Mixed emotional features as adjustment reaction F43.23 [place] [id number] [place] [address] 90852- 6537 Jun, Anxiety disorder, unspecified F41.9 [place] [id number] [place] [address] 77487- 1831 May, Pain in thoracic spine M54.6 [facility] [place] [id number] [place] [address] 51432- 6109 Feb, Allergy, unspecified, initial encounter T78.40XA [facility] [place] [id number] [place] [address] 97378- 2502 Jan, [facility] [place] [address] 79941- 5267 Jan, Environmental allergies V15.09 [facility] [place] [id number] [place] [address] 65443- 2021 Jan, Common cold 460 [facility] [place] [address] 57045- 0484 Oct, Shoulder pain, left 719.41 and 12 weeks gestation of V22.2 [facility] [place] [address] 85450- 3197 September, test positive V72.42 [facility] [place] [id number] [place] [address] 36682- 9908 Aug, [facility] [place] [id number] [place] [address] 15393- 0379 Aug, [facility] [place] [id number] [place] [address] 55432- 4549 Mar, [facility] [place] [id number] [place] [address] 06489- 2662 Mar, [facility] [place] [id number] [place] [address] 56994- 8354 Feb, [facility] [place] [address] 46556- 5133 Feb, [facility] [place] [id number] [place] [address] 35517- 3715 Nov, [facility] [place] [address] 65316- 4117 Nov, [facility] [place] [facility] [address] [id number] [place] [address]- 0894 Oct, [facility] [place] [facility] [address] [id number] [place] [address]- 7146 Oct, [facility] [place] [facility] [address] [id number] [place] [address]- 2112 Oct, [facility] [place] [facility] [address] [id number] [place] [address]- 9382 Oct, [facility] [place] [facility] [address] [id number] [place] [address]- 2404 September, [facility] [place] [facility] [address] [id number] [place] [address]- 1953 September, [facility] [place] [facility] [address] [id number] [place] [address]- 7259 September, [facility] [place] [facility] [address] [id number] [place] [address]- 6059 September, [facility] [place] [facility] [address] [id number] [place] [address]- 6295 Aug, [facility] [place] [facility] [address] [id number] [place] [address]- 6498 Aug, [facility] [place] [facility] [address] [id number] [place] [address]- 7340 Aug, [facility] [place] [facility] [address] [id number] [place] [address]- 7818 Aug, [facility] [place] [facility] [address] [id number] [place] [address]- 5648 Aug, [facility] [place] [facility] [address] [id number] [place] [address]- 8992 Aug, [facility] [place] [facility] [address] [id number] [place] [address]- 6925 Aug, [facility] [place] [facility] [address] [id number] [place] [address] 2546 Aug, [facility] [address] [id number] [place] [address]- 1937 Jul, [facility] [address] [id number] [place] [address] 2546 Jul, [facility] [address] [id number] [place] [address]- 8728 Aug, [facility] [address] [id number] [place] [address] 2545 Jun, [facility] [address] [id number] [place] [address]- 2330 May, [facility] [address] [id number] [place] [address]- 5636 Nov, [facility] [address] [id number] [place] [address]- 5236 Nov, [facility] [address] [id number] [place] [address]- 6433 Nov, [facility] [address] [id number] [place] [address]- 9631 September, [facility] [address] [id number] [place] [address]- 5682 Aug, [facility] [address] [id number] [place] [address]- 2546 Aug, [facility] [address] [id number] [place] [address]- 2546 Jun, [facility] [address] [id number] [place] [address]- 2546 Apr, [facility] [address] [id number] [place] [address]- 2546 Apr, [facility] [address] [id number] [place] [address]- 6251 Apr, [facility] [place] [facility] [address] [id number] [place] [address]- 4811 30 Mar, 2011 [facility] [place] [facility] [address] [id number] [place] [address]- 4512 16 Mar, 2011 [facility] [place] [facility] [address] [id number] [place] [address]- 7888 08 Mar, 2011 [facility] [place] [facility] [address] [id number] [place] [address]- 6421 31 Feb, 2011 [facility] [place] [facility] [address] [id number] [place] [address]- 5760 11 Feb, 2011 [facility] [place] [facility] [address] [id number] [place] [address]- 1264 10 Feb, 2011 [facility] [place] [facility] [address] [id number] [place] [address]- 9444 14 Jan, 2011 [facility] [place] [facility] [address] [id number], [place] [address]- 8598 13 May, 2009 [facility] [place] [facility] [address] [id number], [place] [address]- 5228 Apr, [facility] [place] [facility] [address] [facility] [id number], [place] [address]- 1253 Apr, [facility] [place] [facility] [address] [id number], [place] [address]- 0817 Mar, [facility] [place] [facility] [address] [id number], [place] [address]- 4854 Mar, [facility] [place] [facility] [address] [id number], [place] [address]- 7143 Mar, [facility] [place] [facility] [address] [id number], [place] [address]- 5783 29 Feb, 2009 [facility] [place] [facility] [address] [id number], [place] [address]- 6774 29 Feb, 2009 [facility] [place] [facility] [address] [id number], [place] [address]- 8481 Feb, [facility] [place] [address] [facility] [id number] [place] [address]- 1095 Feb, [facility] [place] [address] [facility] [id number], [place] [address]- 9389 Feb, IMMUNIZATIONS No Known Immunizations SOCIAL HISTORY Never Assessed REASON FOR VISIT Rash and itching, started on legs x2 weeks, has moved to arms and face--- DBennettRN PLAN OF CARE Activity Details Follow Up prn Reason: VITAL SIGNS Height 62 in 2017-02-12 Weight 126 lbs 2017-02-12 Temperature 98.2 degrees Fahrenheit 2017-02-12 Heart Rate 70 bpm 2017-02-12 Respiratory Rate 20 2017-02-12 BMI 23.04 kg/m2 2017-02-12 Blood pressure systolic 110 mmHg 2017-02-12 Blood pressure diastolic 70 mmHg 2017-02-12 MEDICATIONS Medication Instructions Dosage Frequency Start Date End Date Duration Status PredniSONE 10 mg Orally Once a day 4 tabs x 4 days, 3 tabs x 4 days, 2 tabs x 4 days then 1 tab x 4 days. 24h Feb, Feb, 16 days Active RESULTS No Results PROCEDURES No Known procedures INSTRUCTIONS MEDICATIONS ADMINISTERED No Known Medications MEDICAL (GENERAL) HISTORY Type Description Date Medical History Heart Murmur Medical History Hives or Eczema Medical History Anemia Medical History Head, neck, jaw injuries Medical History depression Surgical History wisdom teeth extraction Hospitalization History of daughter 09/2012 Hospitalization History 05/02/2015
--- OUTSIDE RECORDS SUMMARY | 2018-01-31 19:22 | XMS REPORT ---
Author Author PORTIA AVILES Organization [facility] Address [address] [place] [address] Care Team Providers Care Entry Level Sales Associate Name Role Phone PORTIA AVILES Unavailable PROBLEMS Type Condition ICD9-CM Code YOL00-VP Code Onset Dates Condition Status SNOMED Code Problem Other spondylosis with myelopathy, cervical region M47.12 Active 01539739 Problem Attention deficit disorder F90.0 Active 053643523 Problem Mixed emotional features as adjustment reaction F43.23 Active 86371284 Problem Anesthesia of skin R20.0 Active 41547666 Problem Neck pain on left side M54.2 Active 55914559 Problem Moderate single current episode of major depressive disorder F32.1 Active 66699189 Problem Attention deficit hyperactivity disorder (ADHD), combined type F90.2 Active 25970308 Problem Pain of left upper extremity M79.602 Active 781800827 Problem 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 Active 27066660 ALLERGIES No Information SOCIAL HISTORY Never Assessed PLAN OF CARE Activity Details Follow Up 1 Week, 2 Weeks Reason:Anxiety, depression VITAL SIGNS MEDICATIONS No Known Medications RESULTS No Results PROCEDURES Procedure Date Ordered Result Body Site Psychotherapy, patient &/family, 30 minutes, established patient August 21, 2016 IMMUNIZATIONS No Known Immunizations MEDICAL (GENERAL) HISTORY Type Description Date Medical History Heart Murmur Medical History Hives or Eczema Medical History Anemia Medical History Head, neck, jaw injuries Medical History depression Surgical History wisdom teeth extraction Hospitalization History of daughter 09/2012 Hospitalization History 05/02/2015
--- OUTSIDE RECORDS SUMMARY | 2018-01-31 19:23 | XMS REPORT ---
Author Author ROSEY LEMUS Organization [employer] Address Unknown Phone Unavailable Care Team Providers Care Pants Presser Name Role Phone ROSEY LEMUS CP Unavailable Allergies, Adverse Reactions, Alerts Substance Reaction Event Type N.K.D.A. Info Not Available Non Drug Allergy Problems Problem Type Condition ICD-9 Code Onset Dates Condition Status Problem Major depressive disorder, recurrent episode, moderate 296.32 Active Assessment Common cold 460 Active Problem Spasm of muscle 728.85 Active Problem Pain in soft tissues of limb 729.5 Active Problem Cervicalgia 723.1 Active Problem Closed fracture of metacarpal bone(s), site unspecified 815.00 Active Problem Posttraumatic stress disorder 309.81 Active Problem Unspecified fall E888.9 Active Problem Pediatric pre- visit for expectant mother V65.11 Active Medications Medication Code System Code Instructions Start Date End Date Status Dosage Zyrtec Allergy [facility] [address]-12 10 MG Orally Once a day 1 tablet as needed [facility] [address]153 28-0.8 MG Orally not defined Procedures Procedure Coding System Code Date Office Visit, Est Pt., Level 3 CPT-4 07359 Jan 12, 2015 Vital Signs Date/Time: Jan 12, 2015 Temperature 97.3 F Weight 128.0 lbs Height 62 in BMI 23.41 Index Blood Pressure Diastolic 68 mmHg Blood Pressure Systolic 108 mmHg Cardiac Monitoring Heart Rate 82 bpm Results No Known Results Summary Purpose [employer] Submission
--- OUTSIDE RECORDS SUMMARY | 2018-01-31 19:23 | XMS REPORT ---
Author Author JATINDER HESS [facility] [employer] Address Unknown Phone Unavailable Care Team Providers Care Spiral Runner Name Role Phone JATINDER HESS Unavailable Allergies No Known Allergies Problems Problem Type Condition Code Onset Dates Condition Status Problem Attention deficit disorder F90.0 Active Problem Mixed emotional features as adjustment reaction F43.23 Active Problem Attention deficit hyperactivity disorder (ADHD), combined type F90.2 Active Medications No Known Medications Results No Known Results Summary Purpose [employer] Submission
--- OUTSIDE RECORDS SUMMARY | 2018-01-31 19:23 | XMS REPORT ---
Author Author JAJA MAIER [facility] Address [address] [place] [address] Care Team Providers Care Framing Inspector Name Role Phone JAJA MAIER Unavailable PROBLEMS Type Condition ICD9-CM Code YHI55-BU Code Onset Dates Condition Status SNOMED Code Problem Other spondylosis with myelopathy, cervical region M47.12 Active 55906721 Problem Attention deficit disorder F90.0 Active 105331029 Problem Mixed emotional features as adjustment reaction F43.23 Active 46595528 Problem Anesthesia of skin R20.0 Active 95393683 Problem Neck pain on left side M54.2 Active 59074822 Problem Moderate single current episode of major depressive disorder F32.1 Active 85219096 Problem Attention deficit hyperactivity disorder (ADHD), combined type F90.2 Active 55054973 Problem Pain of left upper extremity M79.602 Active 305885375 Problem 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 Active [id number] ALLERGIES No Information ENCOUNTERS Encounter Location Date Diagnosis [facility] [id number] [place] [address] 8499 Oct, [facility] [id number] [place] [address]57 September, Urticaria L50.9 [facility] [address] [address] September, Allergic contact dermatitis due to plants, except food L23.7 [facility] [id number] [place] [address] September, Allergic contact dermatitis due to plants, except food L23.7 [facility] [id number] [place] [address] Aug, [facility] [id number] [place] [address] 05 Jun, 2017 Bronchitis J40 [facility] [address] [address] May, Fever, unspecified fever cause R50.9 and Influenza A J10.1 [place] [address] [address]- [address] Apr, [place] [address] [address]- 4568 Apr, [place] [address] [address] Apr, Routine gynecological examination Z01.419 [place] [address] [address] Feb, Allergic contact dermatitis due to plants, except food L23.[address] [address] Dec, Diarrhea of presumed infectious origin A09 ; Bilious vomiting with nausea R11.14 and 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 [facility] [place] [address] [address] Nov, Insect bite (nonvenomous) of left upper arm, initial encounter S40.862A and Left arm cellulitis L03.[address] [address] Oct, [address] [address] 15 Oct, 2016 Pain of left upper extremity M79.602 ; Anesthesia of skin R20.0 and Neck pain on left side M54.2 [place] [address] [address] Oct, [place] [address] [address] September, [place] [id number], [place] [address] September, Other spondylosis with myelopathy, cervical region M47.12 [facility] [id number] [place] [address] 92593- 7034 Aug, Mixed emotional features as adjustment reaction F43.23 ; Attention deficit hyperactivity disorder (ADHD), combined type F90.2 and Moderate single current episode of major depressive disorder F32.1 [facility] [id number] [place] [address]- 0019 Aug, Moderate single current episode of major depressive disorder F32.1 and 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 [place] [id number] [place] [address] 02053- 5419 Aug, Mixed emotional features as adjustment reaction F43.23 and Attention deficit hyperactivity disorder (ADHD), combined type F90.2 [place] [address] [place] [address] 85009- 0159 Aug, Mixed emotional features as adjustment reaction F43.23 and Attention deficit hyperactivity disorder (ADHD), combined type F90.2 [place] [id number] [place] [address] 92142- 0911 Jul, Attention deficit hyperactivity disorder (ADHD), combined type F90.2 and Mixed emotional features as adjustment reaction F43.23 [place] [address] [address] Mar, [facility] [id number] [place] [address] 29598- 4261 Mar, [place] [id number] [place] [address] 38621- 1579 Mar, Attention deficit hyperactivity disorder (ADHD), combined type F90.2 [place] [id number] [place] [address] 20984- 6155 Nov, Dental examination Z01.20 [place] [id number] [place] [address] 97636- 6945 Nov, [facility] [id number] [place] [address] 04088- 9316 27 Oct, 2015 Well woman exam with routine gynecological exam Z01.419 ; Vaginal discharge N89.8 ; Encounter for counseling regarding contraception Z30.9 and Screening breast examination Z12.39 [facility] [id number] [place] [address]83 Oct, Diarrhea, unspecified type R19.7 ; Dysuria R30.0 ; Nausea R11.0 and Periumbilical abdominal pain R10.33 [place] [address] [address]- [address] Oct, [facility] [id number] [place] [address] 55884- 1621 Oct, [facility] [address] [address]- [address] Oct, Mixed emotional features as adjustment reaction F43.23 and Attention deficit disorder F90.0 [facility] [id number] [place] [address] 48295- 9548 Oct, [facility] [id number] [place] [address] 33170- 5894 Aug, Mixed emotional features as adjustment reaction F43.23 and Attention deficit disorder F90.0 [facility] [id number] [place] [address] 46061- 0015 Aug, Mixed emotional features as adjustment reaction F43.23 ; Attention deficit disorder F90.0 and Wellness examination Z00.00 [place] [address] 09727- 8169 Aug, Mixed emotional features as adjustment reaction F43.23 and Attention deficit disorder F90.0 [facility] [id number] [place] [address] 11509- 9932 Jul, Mixed emotional features as adjustment reaction F43.23 [place] [id number] [place] [address]95- 2363 Jul, Mixed emotional features as adjustment reaction F43.23 [place] [address] 38049- [address]73 16 Jun, 2015 Anxiety disorder, unspecified F41.9 [place] [address] 58044- 9077 May, Pain in thoracic spine M54.6 [place] [address] 05665- 9254 Feb, Allergy, unspecified, initial encounter T78.40XA [address] [address]- [address] Jan, [address] 14181- 6839 Jan, Environmental allergies V15.[address] 75430- 9170 Jan, Common cold [address] 12856- 8736 Oct, Shoulder pain, left 719.41 and 12 weeks gestation of V22.[address] 02474- [address]88 September, test positive V72.42 [place] [id number] [place] [address]58- 4060 Aug, [place] [address] 64019- 6356 Aug, [place] [address] 71820- 3858 Mar, [place] [address] 26775- [address]100 Mar, [place] [address] [place] [address] Feb, [facility] [place] [facility] [address] [id number] [place] [address] 7145 Feb, [facility] [place] [facility] [address] [id number] [place] [address] Nov, [facility] [place] [facility] [address] [id number] [place] [address]- 3485 Nov, [facility] [place] [facility] [address] [id number] [place] [address]- 0278 Oct, [facility] [place] [facility] [address] [id number] [place] [address]- 6880 Oct, [facility] [place] [facility] [address] [id number] [place] [address]- 8532 Oct, [facility] [place] [facility] [address] [id number] [place] [address]- 1845 Oct, [facility] [place] [facility] [address] [id number] [place] [address] 5110 September, [facility] [place] [facility] [address] [id number] [place] [address]- 1815 September, [facility] [place] [facility] [address] [id number] [place] [address]- 1633 September, [facility] [place] [facility] [address] [id number] [place] [address]- 8652 September, [facility] [place] [facility] [address] [id number] [place] [address]- 9964 Aug, [facility] [place] [facility] [address] [id number] [place] [address]- 5289 Aug, [facility] [place] [facility] [address] [id number] [place] [address]- 0737 Aug, [facility] [place] [facility] [address] [id number] [place] [address]- 5717 Aug, [facility] [place] [facility] [address] [id number] [place] [address]- 4370 Aug, [facility] [address] [id number] [place] [address]- 4876 Aug, [facility] [place] [facility] [address] [id number] [place] [address]- 7884 Aug, [facility] [address] [id number] [place] [address]- 5829 Aug, [facility] [address] [id number] [place] [address]- 4704 Jul, [facility] [address] [id number] [place] [address]- 1781 Jul, [facility] [address] [id number] [place] [address]- 0264 Aug, [facility] [address] [id number] [place] [address]- 4372 Jun, [facility] [address] [id number] [place] [address]- 5543 May, [facility] [address] [id number] [place] [address]- 8025 Nov, [facility] [address] [id number] [place] [address]- 1741 Nov, [facility] [place] [facility] [address] [id number] [place] [address]- 9593 Nov, [facility] [place] [facility] [address] [id number] [place] [address]- 7408 September, [facility] [place] [facility] [address] [id number] [place] [address]- 5433 Aug, [facility] [place] [facility] [address] [id number] [place] [address]- 3354 Aug, [facility] [place] [facility] [address] [id number], [place] [address]- [address] 07 Jun, 2011 [facility] [place] [facility] [address] [id number] [place] [address]- 5476 29 Apr, 2011 [facility] [place] [facility] [address] [id number] [place] [address]- 8189 Apr, [facility] [place] [facility] [address] [id number] [place] [address] Apr, [facility] [place] [facility] [address] [id number] [place] [address]- 1188 30 Mar, 2011 [facility] [place] [facility] [address] [id number] [place] [address]- 1421 16 Mar, 2011 [facility] [place] [facility] [address] [id number] [place] [address]- 2076 Mar, [facility] [place] [facility] [address] [facility] [id number] [place] [address]- 8555 31 Feb, 2011 [facility] [place] [facility] [address] [id number] [place] [address]- 1839 Feb, [facility] [place] [facility] [address] [id number] [place] [address]- 8005 10 Feb, 2011 [facility] [place] [facility] [address] [facility] [id number] [place] [address]- 5875 14 Jan, 2011 [facility] [place] [facility] [address] [id number], [place] [address]- 8087 May, [facility] [place] [facility] [address] [id number], [place] [address]- 3127 Apr, [facility] [place] [facility] [address] [id number] [place] [address]- 0540 Apr, [facility] [place] [facility] [address] [id number] [place] [address]- 3020 20 Mar, 2009 [facility] [place] [facility] [address] [facility] [id number] [place] [address]- 1164 10 Mar, 2009 [facility] [place] [facility] [id number] [address] Mar, [facility] [address], [place] [address] 3937 Feb, [facility] [address], [place] [address]- 7701 Feb, [facility] [address], [place] [address]- 8271 Feb, [facility] [address], [place] [address]- 8868 Feb, [facility] [address], [place] [address]- 5976 Feb, IMMUNIZATIONS No Known Immunizations SOCIAL HISTORY Never Assessed REASON FOR VISIT Cuff Maker Hx Updated PLAN OF CARE VITAL SIGNS MEDICATIONS Unknown [...]
--- OUTSIDE RECORDS SUMMARY | 2018-01-31 19:23 | XMS REPORT ---
Author Author JATINDER Clark Organization [facility] Address [address] [place] [address] Care Team Providers Care [employer]ag[employer] Heater Helper Name Role Phone JATINDER Clark Unavailable PROBLEMS Type Condition ICD9-CM Code BTB78-AJ Code Onset Dates Condition Status SNOMED Code Problem Other spondylosis with myelopathy, cervical region M47.12 Active 49361786 Problem Attention deficit disorder F90.0 Active 268824298 Problem Mixed emotional features as adjustment reaction F43.23 Active 58232262 Problem Anesthesia of skin R20.0 Active 05454310 Problem Neck pain on left side M54.2 Active 48564717 Problem Moderate single current episode of major depressive disorder F32.1 Active 10802988 Problem Attention deficit hyperactivity disorder (ADHD), combined type F90.2 Active 67461482 Problem Pain of left upper extremity M79.602 Active 268627428 Problem 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 Active 23665813 ALLERGIES No Information ENCOUNTERS Encounter Location Date Diagnosis [facility] [id number] [place] [address]202 -8504 05 Jun, 2017 Bronchitis J40 [facility] [id number] [place] [address] 47644 -3672 14 May, 2017 Fever, unspecified fever cause R50.9 and Influenza A J10.1 [facility] [id number] [place] [address] 37130- 6899 Apr, [facility] [id number] [place] [address] 17044- 2620 Apr, [facility] [id number] [place] [address] 45960- 4409 Apr, Routine gynecological examination Z01.419 [facility] [id number] [place] [address] 26366- 5232 Feb, Allergic contact dermatitis due to plants, except food L23.7 [place] [address] 61349- 9161 Dec, Diarrhea of presumed infectious origin A09 ; Bilious vomiting with nausea R11.14 and 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 [facility] [address] [address]4974 Nov, Insect bite (nonvenomous) of left upper arm, initial encounter S40.862A and Left arm cellulitis L03.114 [place] [address] 14470- 4273 Oct, [place] [address] 04052- 1796 Oct, Pain of left upper extremity M79.602 ; Anesthesia of skin R20.0 and Neck pain on left side M54.2 [place] [address] 25008- 6868 Oct, [place] [address] 25465- 7242 September, [place] [address] 74610- 3079 September, Other spondylosis with myelopathy, cervical region M47.12 [place] [address] 63170- 1288 Aug, Mixed emotional features as adjustment reaction F43.23 ; Attention deficit hyperactivity disorder (ADHD), combined type F90.2 and Moderate single current episode of major depressive disorder F32.1 [place] [address] 78606- 2781 Aug, Moderate single current episode of major depressive disorder F32.1 and 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 [place] [address] 39018- 2928 Aug, Mixed emotional features as adjustment reaction F43.23 and Attention deficit hyperactivity disorder (ADHD), combined type F90.2 [facility] [id number] [place] [address] 23743- 9730 Aug, Mixed emotional features as adjustment reaction F43.23 and Attention deficit hyperactivity disorder (ADHD), combined type F90.2 [facility] [id number] [place] [address] 93853- 2119 Jul, Attention deficit hyperactivity disorder (ADHD), combined type F90.2 and Mixed emotional features as adjustment reaction F43.23 [place] [id number] [place] [address] 02588- 6378 Mar, [facility] [id number] [place] [address] 88964- 8448 Mar, [place] [id number] [place] [address] 19809- 4945 Mar, Attention deficit hyperactivity disorder (ADHD), combined type F90.2 [place] [id number] [place] [address] 58729- 0174 Nov, Dental examination Z01.20 [facility] [id number] [place] [address] 87206- 1623 Nov, [place] [id number] [place] [address] 33650- 1596 Oct, Well woman exam with routine gynecological exam Z01.419 ; Vaginal discharge N89.8 ; Encounter for counseling regarding contraception Z30.9 and Screening breast examination Z12.39 [facility] [id number] [place] [address] 33995 -1023 Oct, Diarrhea, unspecified type R19.7 ; Dysuria R30.0 ; Nausea R11.0 and Periumbilical abdominal pain R10.33 [place] [id number] [place] [address] 40572- 8018 Oct, [place] [id number] [place] [address] 09172- 2831 Oct, [place] [address] 17409- 0994 Oct, Mixed emotional features as adjustment reaction F43.23 and Attention deficit disorder F90.0 [place] [address] 74117- 9549 Oct, [place] [address] 41409- 6883 Aug, Mixed emotional features as adjustment reaction F43.23 and Attention deficit disorder F90.0 [place] [address] 40662- 9490 Aug, Mixed emotional features as adjustment reaction F43.23 ; Attention deficit disorder F90.0 and Wellness examination Z00.00 [place] [address] 79243- 7640 Aug, Mixed emotional features as adjustment reaction F43.23 and Attention deficit disorder F90.0 [place] [id number] [place] [address] 24143- 8153 Jul, Mixed emotional features as adjustment reaction F43.23 [place] [id number] [place] [address] 62597- 0393 Jul, Mixed emotional features as adjustment reaction F43.23 [place] [id number] [place] [address] 35008- 2230 Jun, Anxiety disorder, unspecified F41.9 [place] [address] 74803- 7772 May, Pain in thoracic spine M54.6 [place] [address] 68942- 9675 05 Feb, 2015 Allergy, unspecified, initial encounter T78.40XA [place] [address] 57525- 6036 Jan, [facility] [address] [address] 8719 Jan, Environmental allergies V15.09 [facility] [address] [address] 1635 Jan, Common cold 460 [facility] [id number] [place] [address] 56546- 5280 Oct, Shoulder pain, left 719.41 and 12 weeks gestation of V22.2 [facility] [address] [address]- 1644 September, test positive V72.42 [facility] [id number] [place] [address] 50062- 8600 Aug, [facility] [id number] [place] [address] 40683- 6355 Aug, [facility] [address] [address]- 6557 Mar, [facility] [address] [address]- 0715 Mar, [facility] [address] [address]- 2478 Feb, [facility] [address] [address]- 3723 Feb, [facility] [address] [address]- 4961 Nov, [facility] [address] [address]- 1819 Nov, [facility] [address] [address]- 5240 Oct, [facility] [address] [address]- 1593 Oct, [facility] [place] [facility] [address] [id number] [place] [address]- 3083 Oct, [facility] [address] [id number] [place] [address]- 8840 Oct, [facility] [place] [facility] [address] [id number] [place] [address]- 8735 September, [facility] [address] [id number] [place] [address]- 9548 September, [facility] [place] [facility] [address] [id number] [place] [address]- 6283 September, [facility] [address] [id number] [place] [address]- 3915 September, [facility] [address] [id number] [place] [address]- 6991 Aug, [facility] [place] [facility] [address] [id number] [place] [address]- 5398 Aug, [facility] [address] [id number] [place] [address]- 0048 Aug, [facility] [place] [facility] [address] [id number] [place] [address]- 5756 Aug, [facility] [address] [id number] [place] [address]- 2006 Aug, [facility] [place] [facility] [address] [id number] [place] [address]- 3291 Aug, [facility] [place] [facility] [address] [id number] [place] [address]- 4744 Aug, [facility] [place] [facility] [address] [id number] [place] [address]60 Aug, [facility] [place] [facility] [address] [id number] [place] [address]141 Jul, [facility] [place] [facility] [address] [id number] [place] [address]- 6873 Jul, [facility] [address] [id number] [place] [address]- 3924 Aug, [facility] [place] [facility] [address] [id number] [place] [address]- 0130 Jun, [facility] [place] [facility] [address] [id number] [place] [address]- 8429 May, [facility] [place] [facility] [address] [id number] [place] [address]- 3009 Nov, [facility] [address] [id number] [place] [address] Nov, [facility] [place] [facility] [address] [id number] [place] [address]- 8371 Nov, [facility] [address] [id number] [place] [address]- 6879 September, [facility] [address] [id number] [place] [address]- 2924 Aug, [facility] [place] [facility] [address] [id number] [place] [address]- 9301 Aug, [facility] [address] [id number] [place] [address]- 5577 Jun, [facility] [place] [facility] [address] [id number] [place] [address]- 6282 Apr, [facility] [place] [facility] [address] [id number] [place] [address]- 8915 Apr, [facility] [place] [facility] [address] [id number] [place] [address]- 0205 Apr, [facility] [place] [facility] [address] [id number] [place] [address]- 9978 30 Mar, 2011 [facility] [place] [facility] [address] [id number] [place] [address]- 5988 16 Mar, 2011 [facility] [place] [facility] [address] [facility] [id number] [address]- 2769 08 Mar, 2011 [facility] [address] [facility] [id number] [place] [address]341 31 Feb, 2011 [facility] [address] [facility] [id number] [address] 11 Feb, 2011 [facility] [address] [facility] [id number] [address]- 2028 10 Feb, 2011 [facility] [address] [facility] [id number] [place] [address]- 4195 14 Jan, 2011 [facility] [address] [facility] [id number] [place] [address], [place] [address]- 9826 13 May, 2009 [facility] [address] [facility] [id number], [place] [address]- 9856 07 Apr, 2009 [facility] [address] [address]- 1074 03 Apr, 2009 [facility] [address] [facility] [id number] [address]- 8736 20 Mar, 2009 [facility] [id number] [address]- 6246 Mar, [facility] [id number] [address]- 1013 04 Mar, 2009 [facility] [address] [address]- 7201 29 Feb, 2009 [facility] [address] [facility] [id number] [address]- 2547 29 Feb, 2009 [facility] [address] [facility] [id number] [address]- 4859 28 Feb, 2009 [facility] [address] [facility] [id number] [address]- 9424 27 Feb, 2009 [facility] [id number] 1664 14 Feb, 2009 IMMUNIZATIONS No Known Immunizations SOCIAL HISTORY Never Assessed REASON FOR VISIT FYI PLAN OF CARE VITAL SIGNS MEDICATIONS No [...]
--- OUTSIDE RECORDS SUMMARY | 2018-01-31 19:23 | XMS REPORT ---
Author Author JAJA MAIER [facility] Address [address] [place] [address] Care Team Providers Care Electrical And Instrumentation Manager Name Role Phone DARRION JAJA Unavailable PROBLEMS Type Condition ICD9-CM Code CQC64-MK Code Onset Dates Condition Status SNOMED Code Problem Other spondylosis with myelopathy, cervical region M47.12 Active 82389085 Problem Attention deficit disorder F90.0 Active 828221011 Problem Mixed emotional features as adjustment reaction F43.23 Active 19724415 Problem Anesthesia of skin R20.0 Active 29669580 Problem Neck pain on left side M54.2 Active 61298882 Problem Moderate single current episode of major depressive disorder F32.1 Active 07254648 Problem Attention deficit hyperactivity disorder (ADHD), combined type F90.2 Active 42086795 Problem Pain of left upper extremity M79.602 Active 169836067 Problem 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 Active 66654780 ALLERGIES Substance Reaction Event Type Date Status Celexa nausea Drug Allergy Apr, Active Adderall hallucinations Drug Allergy Apr, Active ENCOUNTERS Encounter Location Date Diagnosis [facility] [id number] [place] [address]15[address] 5866 Oct, [facility] [id number] [place] [address]2359 September, Urticaria L50.9 [facility] [id number] [place] [address] -0766 September, Allergic contact dermatitis due to plants, except food L23.7 [facility] [address] [place] [address] September, Allergic contact dermatitis due to plants, except food L23.7 [facility] [id number] [place] [address] 71182 -3458 Aug, [facility] [place] [id number] [place] [address]4292 Jun, Bronchitis J40 [facility] [place] [id number] [place] [address]252 -5[address] 14 May, 2017 Fever, unspecified fever cause R50.9 and Influenza A J10.[address] [address]- [address] Apr, [place] [address] [address] Apr, [address] [address]- 6904 Apr, Routine gynecological examination Z01.[address] 04[address] 8436 Feb, Allergic contact dermatitis due to plants, except food L23.7 [place] [id number] [place] [address] 39262- 8468 Dec, Diarrhea of presumed infectious origin A09 ; Bilious vomiting with nausea R11.14 and 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 [facility] [address] [place] [id number] [place] [address] 67[address]01[address] 14 Nov, 2016 Insect bite (nonvenomous) of left upper arm, initial encounter S40.862A and Left arm cellulitis L03.114 [place] [id number] [place] [address]97- 9556 Oct, [address] 7[address]- 8514 15 Oct, 2016 Pain of left upper extremity M79.602 ; Anesthesia of skin R20.0 and Neck pain on left side M54.2 [place] [id number] [place] [address] 19860- 1571 Oct, [address] [address] September, [facility] [address] [address] September, Other spondylosis with myelopathy, cervical region M47.12 [facility] [address] [address] Aug, Mixed emotional features as adjustment reaction F43.23 ; Attention deficit hyperactivity disorder (ADHD), combined type F90.2 and Moderate single current episode of major depressive disorder F32.1 [facility] [address] [address] Aug, Moderate single current episode of major depressive disorder F32.1 and 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 [place] [address] [address] Aug, Mixed emotional features as adjustment reaction F43.23 and Attention deficit hyperactivity disorder (ADHD), combined type F90.2 [place] [address] [address] Aug, Mixed emotional features as adjustment reaction F43.23 and Attention deficit hyperactivity disorder (ADHD), combined type F90.2 [place] [address] [address] Jul, Attention deficit hyperactivity disorder (ADHD), combined type F90.2 and Mixed emotional features as adjustment reaction F43.23 [facility] [address] [address] Mar, [facility] [address] [address] Mar, [place] [address] [address] 79[address] Mar, Attention deficit hyperactivity disorder (ADHD), combined type F90.2 [facility] [address] [address] 18 Nov, 2015 Dental examination Z01.20 [facility] [id number] [place] [address] 93910- 5531 Nov, [facility] [id number] [place] [address] 48983- 7535 27 Oct, 2015 Well woman exam with routine gynecological exam Z01.419 ; Vaginal discharge N89.8 ; Encounter for counseling regarding contraception Z30.9 and Screening breast examination Z12.39 [facility] [id number] [place] [address] 94724 -7079 23 Oct, 2015 Diarrhea, unspecified type R19.7 ; Dysuria R30.0 ; Nausea R11.0 and Periumbilical abdominal pain R10.33 [facility] [id number] [place] [address] 26463- 1676 Oct, [place] [address] [address]- 6636 Oct, [place] [id number] [place] [address] 79072- 0731 Oct, Mixed emotional features as adjustment reaction F43.23 and Attention deficit disorder F90.0 [place] [id number] [place] [address] 34885- 5214 Oct, [place] [id number] [place] [address] 84748- 9899 Aug, Mixed emotional features as adjustment reaction F43.23 and Attention deficit disorder F90.0 [place] [id number] [place] [address] 17925- 1476 Aug, Mixed emotional features as adjustment reaction F43.23 ; Attention deficit disorder F90.0 and Wellness examination Z00.00 [place] [id number] [place] [address] 93966- 4290 Aug, Mixed emotional features as adjustment reaction F43.23 and Attention deficit disorder F90.0 [place] [id number] [place] [address]20- 4526 Jul, Mixed emotional features as adjustment reaction F43.23 [place] [address] 8[address]49- 5615 Jul, Mixed emotional features as adjustment reaction F43.23 [place] [address] [address]39- [address] 16 Jun, 2015 Anxiety disorder, unspecified F41.9 [place] [address] 92693- 4035 May, Pain in thoracic spine M54.6 [place] [address] [address]33- 9513 Feb, Allergy, unspecified, initial encounter T78.40XA [place] [address] [address]01- 9894 Jan, [place] [address] 84181- 8802 Jan, Environmental allergies V15.09 [place] [address] 21760- 6418 Jan, Common cold 460 [place] [address] 30989- 4844 Oct, Shoulder pain, left 719.41 and 12 weeks gestation of V22.2 [place] [address] 37011- 2061 September, test positive V72.42 [place] [id number] [place] [address] 33616- 1053 Aug, [place] [address] 01127- 7156 Aug, [place] [address] 27349- 6487 Mar, [place] [address] 75132- 4119 Mar, [facility] [place] [facility] [address] [id number] [place] [address]- 4[address] Feb, [facility] [place] [facility] [address] [id number] [place] [address]- 2187 Feb, [facility] [place] [facility] [address] [id number] [place] [address]- 9253 Nov, [facility] [place] [facility] [address] [id number] [place] [address]- 4335 Nov, [facility] [place] [facility] [address] [id number] [place] [address]- 8677 Oct, [facility] [place] [facility] [address] [id number] [place] [address]- 1334 Oct, [facility] [place] [facility] [address] [id number] [place] [address]- 4332 Oct, [facility] [place] [facility] [address] [id number] [place] [address]- 7717 Oct, [facility] [place] [facility] [address] [id number] [place] [address]- 7055 September, [facility] [place] [facility] [address] [id number] [place] [address]- 0176 September, [facility] [place] [facility] [address] [id number] [place] [address]- 2946 September, [facility] [place] [facility] [address] [id number] [place] [address]- 4956 September, [facility] [place] [facility] [address] [id number] [place] [address]- 4293 Aug, [facility] [place] [facility] [address] [id number] [place] [address]- 5185 Aug, [facility] [place] [facility] [address] [id number] [place] [address]- 1482 Aug, [facility] [place] [facility] [address] [id number] [place] [address]- 8268 17 Aug, 2013 [facility] [place] [facility] [address] [id number] [place] [address]- 5226 Aug, [facility] [place] [facility] [address] [id number] [place] [address]- 5528 Aug, [facility] [place] [facility] [address] [id number] [place] [address]- 3944 Aug, [facility] [place] [facility] [address] [id number] [place] [address]- 3225 Aug, [facility] [place] [facility] [address] [id number] [place] [address]- 2642 Jul, [facility] [place] [facility] [address] [id number] [place] [address]- 6898 Jul, [facility] [place] [facility] [address] [id number] [place] [address]- 2602 Aug, [facility] [address] [id number] [place] [address]- 8512 Jun, [facility] [place] [facility] [address] [id number] [place] [address]- 9178 May, [facility] [place] [facility] [address] [id number] [place] [address]- 0887 Nov, [facility] [place] [facility] [address] [id number] [place] [address]- 6218 Nov, [facility] [place] [facility] [address] [id number] [place] [address]- 5314 Nov, [facility] [place] [facility] [address] [id number] [place] [address]- 7387 September, [facility] [place] [facility] [address] [id number] [place] [address]- 7702 Aug, [facility] [place] [facility] [address] [id number] [place] [address]- 7762 Aug, [facility] [place] [facility] [address] [id number] [place] [address]- 8256 07 Jun, 2011 [facility] [place] [facility] [address] [id number] [place] [address]- 7171 Apr, [facility] [place] [facility] [address] [id number] [place] [address]- 5739 Apr, [facility] [place] [facility] [address] [id number] [place] [address]- 4642 Apr, [facility] [place] [facility] [address] [id number] [place] [address]- 5052 Mar, [facility] [place] [facility] [address] [id number] [place] [address]- 5780 16 Mar, 2011 [facility] [place] [facility] [address] [id number] [place] [address]- 5231 Mar, [facility] [place] [facility] [address] [id number] [place] [address]- 2924 31 Feb, 2011 [facility] [place] [facility] [address] [id number] [place] [address]- 3319 Feb, [facility] [place] [facility] [address] [id number] [place] [address]- 8109 10 Feb, 2011 [facility] [place] [facility] [address] [id number] [address]- [address]56 14 Jan, 2011 [facility] [place] [facility] [address] [id number] [address]- [address] 13 May, 2009 [facility] [place] [facility] [address] [id number] [place] [address]- 3439 Apr, [facility] [place] [facility] [address] [id number] [address]- 7312 Apr, [facility] [place] [facility] [address] [id number] [address]- 3317 Mar, [facility] [place] [facility] [address] [facility] [id number] [address] 2546 Mar, [facility] [address] [facility] [id number] [place] [address]- 1305 Mar, [facility] [id number] [address]- 3320 Feb, [facility] [id number] [address]- 8115 Feb, [facility] [id number] [address]- 7778 Feb, [facility] [id number] [address]- 7461 Feb, [facility] [id number] [address]- 0342 Feb, IMMUNIZATIONS No Known Immunizations SOCIAL HISTORY Never Assessed REASON FOR VISIT Annual physical (female), PT has concerns about aditional growth with her vaginal area and questions about over all simancAdam FOSTER PLAN OF CARE Activity Details Follow Up 1 Year, sooner prn Reason: Pending Test PAP REFLEX TO HPV IF ASCUS VITAL SIGNS Height 62 in 2017-04-17 Weight 124.0 lbs 2017-04-17 Temperature 98.4 degrees Fahrenheit 2017-04-17 Heart Rate 78 bpm 2017-04-17 Respiratory Rate 18 2017-04-17 BMI 22.68 kg/m2 2017-04-17 Blood pressure systolic 98 mmHg 2017-04-17 Blood pressure diastolic 62 mmHg 2017-04-17 MEDICATIONS Unknown Medications RESULTS No Results PROCEDURES Procedure Date Ordered Result Body Site SPECIMEN HANDLING Apr 17, 2017 No Charge Apr 17, 2017 LAB NOT BILLED BY [facility] Apr 17, 2017 Bacterial Vaginosis In House Apr 17, 2017 INSTRUCTIONS MEDICATIONS ADMINISTERED No Known Medications MEDICAL (GENERAL) HISTORY Type Description Date Medical History Heart Murmur Medical History Hives or Eczema Medical History Anemia Medical History Head, neck, jaw injuries Medical History depression Surgical History wisdom teeth extraction Hospitalization History of daughter 09/2012 Hospitalization History 05/02/2015
--- OUTSIDE RECORDS SUMMARY | 2018-01-31 19:23 | XMS REPORT ---
Author Author JATINDER HESS Organization [facility] Address [address] [place] [address] Care Team Providers Care Industrial Controls Technician Name Role Phone JATINDER HESS Unavailable PROBLEMS Type Condition ICD9-CM Code HEU92-UW Code Onset Dates Condition Status SNOMED Code Problem Other spondylosis with myelopathy, cervical region M47.12 Active 63212821 Problem Attention deficit disorder F90.0 Active 158537823 Problem Mixed emotional features as adjustment reaction F43.23 Active 98735615 Problem Anesthesia of skin R20.0 Active 58038008 Problem Neck pain on left side M54.2 Active 19992072 Problem Moderate single current episode of major depressive disorder F32.1 Active 97084527 Problem Attention deficit hyperactivity disorder (ADHD), combined type F90.2 Active 03964588 Problem Pain of left upper extremity M79.602 Active 904454566 Problem 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 Active 96285294 ALLERGIES No Information SOCIAL HISTORY Never Assessed [...]
--- OUTSIDE RECORDS SUMMARY | 2018-01-31 19:23 | XMS REPORT ---
Author Author JATINDER HESS Organization [employer] Address Unknown Phone Unavailable Care Team Providers Care Juke Box Mechanic Name Role Phone JATINDER HESS CP Unavailable Allergies, Adverse Reactions, Alerts Substance Reaction Event Type N.K.D.A. Info Not Available Non Drug Allergy Problems Problem Type Condition Code Onset Dates Condition Status Problem Mixed emotional features as adjustment reaction F43.23 Active Assessment Mixed emotional features as adjustment reaction F43.23 Active Problem Attention deficit disorder F90.0 Active Assessment Attention deficit disorder F90.0 Active Assessment Wellness examination Z00.00 Active Medications Medication Code System Code Instructions Start Date End Date Status Dosage Chlor-Tablets NDC 0 not defined [facility] 13378-71075 28-0.8 MG Orally not defined Celexa [facility] [address]-23 20 mg Orally Once a day September 07, 2015 1 tablet Procedures Procedure Coding System Code Date VENIPUNCT, ROUTINE* CPT-4 47317 September 07, 2015 Office Visit, Est Pt., Level 4 CPT-4 32103 September 07, 2015 LAB NOT BILLED BY [facility] CPT-4 NOBLL September 07, 2015 Vital Signs Date/Time: September 07, 2015 Temperature 98.1 F Weight 132 lbs Height 62 in BMI 24.14 Index Blood Pressure Diastolic 74 mmHg Blood Pressure Systolic 122 mmHg Cardiac Monitoring Heart Rate 72 bpm Results No Known Results Summary Purpose [employer] Submission
--- OUTSIDE RECORDS SUMMARY | 2018-01-31 19:24 | XMS REPORT ---
Author PORTIA Turner [facility] [employer] Address Unknown Phone Unavailable Care Team Providers Care Bargain Table Clerk Name Role Phone PORTIA LEE CP Unavailable Allergies, Adverse Reactions, Alerts Substance Reaction Event Type N.K.D.A. Info Not Available Non Drug Allergy Problems Problem Type Condition Code Onset Dates Condition Status Problem Mixed emotional features as adjustment reaction F43.23 Active Assessment Dental examination Z01.20 Active Problem Attention deficit disorder F90.0 Active Medications No Known Medications Procedures Procedure Coding System Code Date PANORAMIC FILM SEE ALSO CODE 93893 CPT-4 D0330 November 29, 2015 LTD ORAL EVALUATION - PROBLEM FOCUS CPT-4 D0140 November 29, 2015 Vital Signs Date/Time: November 29, 2015 Blood Pressure Diastolic 64 mmHg Blood Pressure Systolic 102 mmHg Height 62 in Results No Known Results Summary Purpose [employer] Submission
--- OUTSIDE RECORDS SUMMARY | 2018-01-31 19:24 | XMS REPORT ---
Author Author JATINDER Clark Organization [facility] Address [address] [place] [address] Care Team Providers Care Playground Attendant Name Role Phone JATINDER Clark Unavailable PROBLEMS Type Condition ICD9-CM Code GST48-WN Code Onset Dates Condition Status SNOMED Code Problem Other spondylosis with myelopathy, cervical region M47.12 Active 41397204 Problem Attention deficit disorder F90.0 Active 136749535 Problem Mixed emotional features as adjustment reaction F43.23 Active 29163280 Problem Anesthesia of skin R20.0 Active 50145592 Problem Neck pain on left side M54.2 Active 90635300 Problem Moderate single current episode of major depressive disorder F32.1 Active 01511624 Problem Attention deficit hyperactivity disorder (ADHD), combined type F90.2 Active 68450707 Problem Pain of left upper extremity M79.602 Active 770188745 Problem 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 Active 75200540 ALLERGIES No Information ENCOUNTERS Encounter Location Date Diagnosis [facility] [id number] [place] [address]368 05 Jun, 2017 Bronchitis J40 [facility] [id number] [place] [address] 98987 -9834 14 May, 2017 Fever, unspecified fever cause R50.9 and Influenza A J10.1 [facility] [id number] [place] [address] 55447- 8215 Apr, [facility] [id number] [place] [address] 07853- 2377 Apr, [facility] [id number] [place] [address] 02259- 6990 Apr, Routine gynecological examination Z01.419 [facility] [id number] [place] [address] 90648- 9772 Feb, Allergic contact dermatitis due to plants, except food L23.7 [place] [address] [address]80 Dec, Diarrhea of presumed infectious origin A09 ; Bilious vomiting with nausea R11.14 and 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 [facility] [address] [address] Nov, Insect bite (nonvenomous) of left upper arm, initial encounter S40.862A and Left arm cellulitis L03.114 [place] [address] 08288- 7643 Oct, [place] [address] 84606- 4586 Oct, Pain of left upper extremity M79.602 ; Anesthesia of skin R20.0 and Neck pain on left side M54.2 [place] [address] 73184- 1856 Oct, [place] [address] 97065- 9740 September, [place] [address] [address]95- 0573 September, Other spondylosis with myelopathy, cervical region M47.12 [place] [address] 58993- 9996 Aug, Mixed emotional features as adjustment reaction F43.23 ; Attention deficit hyperactivity disorder (ADHD), combined type F90.2 and Moderate single current episode of major depressive disorder F32.1 [place] [address] 21210- 2444 Aug, Moderate single current episode of major depressive disorder F32.1 and 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 [place] [address] 20566- 3548 Aug, Mixed emotional features as adjustment reaction F43.23 and Attention deficit hyperactivity disorder (ADHD), combined type F90.2 [facility] [id number] [place] [address] 56978- 6320 Aug, Mixed emotional features as adjustment reaction F43.23 and Attention deficit hyperactivity disorder (ADHD), combined type F90.2 [facility] [id number] [place] [address] 45112- 7901 Jul, Attention deficit hyperactivity disorder (ADHD), combined type F90.2 and Mixed emotional features as adjustment reaction F43.23 [place] [id number] [place] [address] 25254- 9172 Mar, [facility] [id number] [place] [address] 26490- 5305 Mar, [place] [id number] [place] [address] 50468- 6336 Mar, Attention deficit hyperactivity disorder (ADHD), combined type F90.2 [place] [id number] [place] [address] 96728- 8780 Nov, Dental examination Z01.20 [facility] [id number] [place] [address] 80245- 6769 Nov, [place] [id number] [place] [address] 12992- 7103 Oct, Well woman exam with routine gynecological exam Z01.419 ; Vaginal discharge N89.8 ; Encounter for counseling regarding contraception Z30.9 and Screening breast examination Z12.39 [facility] [id number] [place] [address] 29454 -6796 Oct, Diarrhea, unspecified type R19.7 ; Dysuria R30.0 ; Nausea R11.0 and Periumbilical abdominal pain R10.33 [place] [id number] [place] [address] 35586- 0108 Oct, [place] [id number] [place] [address] 92368- 4258 Oct, [place] [address] 27158- 2243 Oct, Mixed emotional features as adjustment reaction F43.23 and Attention deficit disorder F90.0 [place] [address] 00292- 0157 Oct, [place] [address] 20739- 0803 Aug, Mixed emotional features as adjustment reaction F43.23 and Attention deficit disorder F90.0 [place] [address] 89147- 5408 Aug, Mixed emotional features as adjustment reaction F43.23 ; Attention deficit disorder F90.0 and Wellness examination Z00.00 [place] [address] 87030- 1479 Aug, Mixed emotional features as adjustment reaction F43.23 and Attention deficit disorder F90.0 [place] [id number] [place] [address] 05947- 2719 Jul, Mixed emotional features as adjustment reaction F43.23 [place] [id number] [place] [address] 41832- 0778 Jul, Mixed emotional features as adjustment reaction F43.23 [place] [id number] [place] [address] 25041- 5375 Jun, Anxiety disorder, unspecified F41.9 [place] [address] 90910- 7258 May, Pain in thoracic spine M54.6 [place] [address] 48946- 2389 05 Feb, 2015 Allergy, unspecified, initial encounter T78.40XA [place] [address] 56053- 7603 Jan, [facility] [address] [address] Jan, Environmental allergies V15.09 [facility] [address] [address] 2245 Jan, Common cold 460 [facility] [id number] [place] [address] 39194- 9466 Oct, Shoulder pain, left 719.41 and 12 weeks gestation of V22.2 [facility] [address] [address] 4048 September, test positive V72.42 [facility] [id number] [place] [address] 89772- 4697 Aug, [facility] [id number] [place] [address] 00993- 0578 Aug, [facility] [address] [place] [address]- 5206 Mar, [facility] [address] [place] [address]- 9833 Mar, [facility] [address] [place] [address]- 1252 Feb, [facility] [address] [place] [address]- 1214 Feb, [facility] [address] [place] [address]- 9222 Nov, [facility] [address] [place] [address]- 2139 Nov, [facility] [address] [place] [address]- 9937 Oct, [facility] [address] [place] [address]- 1766 Oct, [facility] [place] [facility] [address] [id number] [place] [address]- 1034 Oct, [facility] [address] [id number] [place] [address]- 2384 Oct, [facility] [place] [facility] [address] [id number] [place] [address]- 7656 September, [facility] [address] [id number] [place] [address]- 0664 September, [facility] [place] [facility] [address] [id number] [place] [address]- 0618 September, [facility] [address] [id number] [place] [address]- 1903 September, [facility] [address] [id number] [place] [address]- 6416 Aug, [facility] [place] [facility] [address] [id number] [place] [address]- 6119 Aug, [facility] [address] [id number] [place] [address]- 7340 Aug, [facility] [place] [facility] [address] [id number] [place] [address]- 3600 Aug, [facility] [address] [id number] [place] [address]- 1619 Aug, [facility] [place] [facility] [address] [id number] [place] [address]- 1193 Aug, [facility] [place] [facility] [address] [id number] [place] [address]- 1427 Aug, [facility] [place] [facility] [address] [id number] [place] 4434 Aug, [facility] [place] [facility] [address] [id number] [place] [address]43 Jul, [facility] [place] [facility] [address] [id number] [place] [address]- 3350 Jul, [facility] [address] [id number] [place] [address]- 8588 Aug, [facility] [place] [facility] [address] [id number] [place] [address]- 0270 Jun, [facility] [place] [facility] [address] [id number] [place] [address]- 9307 May, [facility] [place] [facility] [address] [id number] [place] [address]- 7060 Nov, [facility] [address] [id number] [place] [address]284 Nov, [facility] [place] [facility] [address] [id number] [place] [address]- 8630 Nov, [facility] [address] [id number] [place] [address]- 5704 September, [facility] [address] [id number] [place] [address]- 1774 Aug, [facility] [place] [facility] [address] [id number] [place] [address]- 3348 Aug, [facility] [address] [id number] [place] [address]- 3585 Jun, [facility] [place] [facility] [address] [id number] [place] [address]- 4974 Apr, [facility] [place] [facility] [address] [id number] [place] [address]- 7546 Apr, [facility] [place] [facility] [address] [id number] [place] [address]- 8756 Apr, [facility] [place] [facility] [address] [id number] [place] [address]- 5600 30 Mar, 2011 [facility] [place] [facility] [address] [id number] [place] [address]- 2398 16 Mar, 2011 [facility] [place] [facility] [address] [facility] [id number], [place] [address]- 7113 08 Mar, 2011 [facility] [address] [facility] [id number] [place] 1259 31 Feb, 2011 [facility] [address] [facility] [id number] [address]- 4310 11 Feb, 2011 [facility] [address] [facility] [id number], [place] [address]- 3032 10 Feb, 2011 [facility] [address] [facility] [id number] [place] [address]- 4180 14 Jan, 2011 [facility] [address] [facility] [id number] [place] [address], [place] [address]- 2478 13 May, 2009 [facility] [address] [facility] [id number], [place] [address]- 1104 07 Apr, 2009 [facility] [address] [place] [address]- 1126 03 Apr, 2009 [facility] [address] [facility] [id number], [place] [address]- 0359 20 Mar, 2009 [facility] [address], [place] [address]- 3450 Mar, [facility] [id number] [address]- 0569 04 Mar, 2009 [facility] [address], [place] [address]- 8523 29 Feb, 2009 [facility] [address] [facility] [id number], [place] [address]- 2540 29 Feb, 2009 [facility] [address] [facility] [id number], [place] [address]- 1531 28 Feb, 2009 [facility] [address] [facility] [id number], [place] [address]- 6162 27 Feb, 2009 [facility] [id number] [address] 14 Feb, 2009 IMMUNIZATIONS No Known Immunizations SOCIAL HISTORY Never Assessed REASON FOR VISIT PA for MRI C-spine (denied) PLAN OF CARE VITAL SIGNS MEDICATIONS No [...]
--- OUTSIDE RECORDS SUMMARY | 2018-01-31 19:25 | XMS REPORT ---
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 Name Role Phone Amber JATINDER Unavailable PROBLEMS Type Condition ICD9-CM Code JKM13-AG Code Onset Dates Condition Status SNOMED Code Problem Other spondylosis with myelopathy, cervical region M47.12 Active 46805362 Problem Attention deficit disorder F90.0 Active 847868119 Problem Mixed emotional features as adjustment reaction F43.23 Active 79546226 Problem Anesthesia of skin R20.0 Active 48417203 Problem Neck pain on left side M54.2 Active 92875864 Problem Moderate single current episode of major depressive disorder F32.1 Active 65657877 Problem Attention deficit hyperactivity disorder (ADHD), combined type F90.2 Active 72523430 Problem Pain of left upper extremity M79.602 Active 173668548 Problem 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 Active 44470555 ALLERGIES Substance Reaction Event Type Date Status Celexa nausea Drug Allergy Dec, Active Adderall hallucinations Drug Allergy Dec, Active ENCOUNTERS Encounter Location Date Diagnosis [facility] [id number] [place] [address] Oct, [facility] [id number] [place] [address] September, Urticaria L50.9 [facility] [id number] [place] [address] September, Allergic contact dermatitis due to plants, except food L23.7 [facility] [address] [address] September, Allergic contact dermatitis due to plants, except food L23.7 [facility] [id number] [place] [address] Aug, [facility] IN [facility] [address] [address] Jun, Bronchitis J40 [facility] [place] [address] [address] 14 May, 2017 Fever, unspecified fever cause R50.9 and Influenza A J10.[address] [address] Apr, [address] [address] Apr, [place] [address] [address] Apr, Routine gynecological examination Z01.[address] [address]- [address] Feb, Allergic contact dermatitis due to plants, except food L23.[address] [address] Dec, Diarrhea of presumed infectious origin A09 ; Bilious vomiting with nausea R11.14 and 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 [facility] [place] [id number] [place] [address]9205 14 Nov, 2016 Insect bite (nonvenomous) of left upper arm, initial encounter S40.862A and Left arm cellulitis L03.114 [place] [id number] [place] [address] Oct, [address] [address] 15 Oct, 2016 Pain of left upper extremity M79.602 ; Anesthesia of skin R20.0 and Neck pain on left side M54.[address] [address] Oct, [facility] [address] [address] September, [facility] [address] [address] September, Other spondylosis with myelopathy, cervical region M47.12 [facility] [address] [address] Aug, Mixed emotional features as adjustment reaction F43.23 ; Attention deficit hyperactivity disorder (ADHD), combined type F90.2 and Moderate single current episode of major depressive disorder F32.1 [place] [address] [address] Aug, Moderate single current episode of major depressive disorder F32.1 and 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 [place] [address] [address] Aug, Mixed emotional features as adjustment reaction F43.23 and Attention deficit hyperactivity disorder (ADHD), combined type F90.2 [facility] [address] [address] Aug, Mixed emotional features as adjustment reaction F43.23 and Attention deficit hyperactivity disorder (ADHD), combined type F90.2 [place] [address] [address] Jul, Attention deficit hyperactivity disorder (ADHD), combined type F90.2 and Mixed emotional features as adjustment reaction F43.23 [facility] [address] [address] Mar, [facility] [address] [address] Mar, [facility] [address] [address] Mar, Attention deficit hyperactivity disorder (ADHD), combined type F90.2 [facility] [address] [address] 18 Nov, 2015 Dental examination Z01.20 [facility] [id number] [place] [address] 36170- 08[address] 06 Nov, 2015 [facility] [id number] [place] [address] 74532- 1126 27 Oct, 2015 Well woman exam with routine gynecological exam Z01.419 ; Vaginal discharge N89.8 ; Encounter for counseling regarding contraception Z30.9 and Screening breast examination Z12.39 [facility] [id number] [place] [address]90 [address] 23 Oct, 2015 Diarrhea, unspecified type R19.7 ; Dysuria R30.0 ; Nausea R11.0 and Periumbilical abdominal pain R10.33 [place] [address] [place] [address]8763- 14[address] Oct, [place] [id number] [place] [address] 82724- 86[address] Oct, [facility] [id number] [place] [address] 64653- 0693 Oct, Mixed emotional features as adjustment reaction F43.23 and Attention deficit disorder F90.0 [place] [address] [address] Oct, [place] [id number] [place] [address]6972- 2738 Aug, Mixed emotional features as adjustment reaction F43.23 and Attention deficit disorder F90.0 [facility] [id number] [place] [address] 55677- 7330 Aug, Mixed emotional features as adjustment reaction F43.23 ; Attention deficit disorder F90.0 and Wellness examination Z00.00 [facility] [id number] [place] [address] 24484- 7573 Aug, Mixed emotional features as adjustment reaction F43.23 and Attention deficit disorder F90.0 [place] [id number] [place] [address] 68539- 6439 Jul, Mixed emotional features as adjustment reaction F43.23 [place] [address] [address] Jul, Mixed emotional features as adjustment reaction F43.23 [place] [id number] [place] [address] 37652- 9201 Jun, Anxiety disorder, unspecified F41.9 [place] [address] [address] May, Pain in thoracic spine M54.[address] [address] Feb, Allergy, unspecified, initial encounter T78.[address] [place] [id number] [place] [address]61- [address] Jan, [place] [address] [address]83[address] Jan, Environmental allergies V15.[address] [address]- [address] Jan, Common cold [id number] [place] [address] 09992- 2108 Oct, Shoulder pain, left 719.41 and 12 weeks gestation of V22.2 [place] [id number] [place] [address]507- 65[address] September, test positive V72.42 [place] [id number] [place] [address] 95135- 7916 Aug, [place] [address] 65963- 1169 Aug, [place] [address] [address] [id number] [place] [address] 65206- 4356 Mar, [place] [address] [place] [id number] [place] [address] Mar, [facility] [address] [id number] [place] [address] 8[address] Feb, [facility] [place] [facility] [address] [id number] [place] [address] 5415 Feb, [facility] [place] [facility] [address] [id number] [place] [address]- 7802 Nov, [facility] [place] [facility] [address] [id number] [place] [address] 4900 Nov, [facility] [place] [facility] [address] [id number] [place] [address]- 5866 Oct, [facility] [place] [facility] [address] [id number] [place] [address]- 8335 Oct, [facility] [place] [facility] [address] [id number] [place] [address]- 5044 Oct, [facility] [place] [facility] [address] [id number] [place] [address]- 3957 Oct, [facility] [place] [facility] [address] [id number] [place] [address] 3994 September, [facility] [place] [facility] [address] [id number] [place] [address] 8514 September, [facility] [place] [facility] [address] [id number] [place] [address]- 0470 September, [facility] [place] [facility] [address] [id number] [place] [address]- 0792 September, [facility] [place] [facility] [address] [id number] [place] [address]- 9715 Aug, [facility] [place] [facility] [address] [id number] [place] [address]- 8099 Aug, [facility] [place] [facility] [address] [id number] [place] [address]- 0252 Aug, [facility] [place] [facility] [address] [id number] [place] [address]- 5837 Aug, [facility] [place] [facility] [address] [id number] [place] [address]- 9292 Aug, [facility] [place] [facility] [address] [id number] [place] [address]- 1683 Aug, [facility] [place] [facility] [address] [id number] [place] [address]- 7951 Aug, [facility] [place] [facility] [address] [id number] [place] [address]- 2916 Aug, [facility] [place] [facility] [address] [id number] [place] [address]- 2731 Jul, [facility] [place] [facility] [address] [id number] [place] [address]- 4576 Jul, [facility] [place] [facility] [address] [id number] [place] [address]- 5389 Aug, [facility] [place] [facility] [address] [id number] [place] [address]- 1878 Jun, [facility] [place] [facility] [address] [id number] [place] [address]- 9061 May, [facility] [place] [facility] [address] [id number] [place] [address]- 4090 Nov, [facility] [place] [facility] [address] [id number] [place] [address]- 2074 Nov, [facility] [place] [facility] [address] [id number] [place] [address]- 1786 Nov, [facility] [place] [facility] [address] [id number] [place] [address]- 3313 September, [facility] [place] [facility] [address] [id number] [place] [address]- 0844 Aug, [facility] [place] [facility] [address] [id number] [address]- [address] 06 Aug, 2011 [facility] [address] [id number] [place] [address]- 8954 07 Jun, 2011 [facility] [place] [facility] [address] [facility] [id number] [place] [address]- 3219 Apr, [facility] [place] [facility] [address] [facility] [id number] [place] [address]- 0337 Apr, [facility] [place] [facility] [address] [id number] [place] [address] Apr, [facility] [place] [facility] [address] [facility] [id number] [place] [address], [place] [address]- 5724 30 Mar, 2011 [facility] [place] [facility] [address] [facility] [id number] [place] [address]- 4459 16 Mar, 2011 [facility] [place] [facility] [id number] [place] [address] 05765- 8309 08 Mar, 2011 [facility] [place] [facility] [address] [facility] [id number] [place] [address]- 6526 31 Feb, 2011 [facility] [place] [facility] [address] [facility] [id number] [address]- 8022 11 Feb, 2011 [facility] [place] [facility] [address] [facility] [id number] [place] [address]- 4540 10 Feb, 2011 [facility] [place] [facility] [address] [facility] [id number] [place] [address]- 35[address] 14 Jan, 2011 [facility] [place] [facility] [address] [facility] [id number] [place] [address]- 5589 13 May, 2009 [facility] [place] [facility] [address] [facility] [id number] [place] [address] 07 Apr, 2009 [facility] [place] [facility] [address] [facility] [id number] [place] [address]- [address] 03 Apr, 2009 [facility] [place] [facility] [address] [facility] [id number] [place] [address]- 8948 20 Mar, 2009 [facility] [place] [facility] [address] [facility] [id number] [place] [address]- 2[address] Mar, [facility] [id number] [address] Mar, [facility] [id number] [address]- 74[address] Feb, [facility] [id number] [address]- 1075 Feb, [facility] [id number] [address] Feb, [facility] [id number] [address] Feb, [facility] [id number] [address]- 8681 Feb, IMMUNIZATIONS No Known Immunizations SOCIAL HISTORY Never Assessed REASON FOR VISIT Diarrhea- Shaila FOSTER PLAN OF CARE Activity Details Follow Up 2 - 3 Days, prn Reason: VITAL SIGNS Height 62 in 2017-01-02 Temperature 98.0 degrees Fahrenheit 2017-01-02 Heart Rate 78 bpm 2017-01-02 Respiratory Rate 20 2017-01-02 Blood pressure systolic 108 mmHg 2017-01-02 Blood pressure diastolic 76 mmHg 2017-01-02 MEDICATIONS Medication Instructions Dosage Frequency Start Date End Date Duration Status Flagyl 500 mg Orally every 8 hrs 1 tablet 8h Dec, Jan, 10 day(s) Active Zantac 150 MG Orally Once a day 1 tablet at bedtime 24h Dec, 30 day(s) Active Amitriptyline HCl 25 MG Orally 45 before hs 1 tablet Aug, 30 day(s) Not-Taking Chlor-Tablets Not-Taking RESULTS No Results PROCEDURES No Known procedures INSTRUCTIONS MEDICATIONS ADMINISTERED No Known Medications MEDICAL (GENERAL) HISTORY Type Description Date Medical History Heart Murmur Medical History Hives or Eczema Medical History Anemia Medical History Head, neck, jaw injuries Medical History depression Surgical History wisdom teeth extraction Hospitalization History of daughter 09/2012 Hospitalization History 05/02/2015
--- OUTSIDE RECORDS SUMMARY | 2018-01-31 19:26 | XMS REPORT | Continuity of Care Document ---
Author Author [facility] Address Unknown Phone Unavailable Allergies Active Description Code Type Severity Reaction Onset Reported/Identified Relationship to Patient Clinical Status Yes No Known Drug Allergies [id number] Drug Allergy Unknown N/A 06/13/2011 Medications There is no data. Problems Date Dx Coded Attending Type Code Diagnosis Diagnosed By 01/24/2008 626.4 IRREGULAR MENSTRUAL CYCLE 01/24/2008 V25.40 CONTRACEPTIVE SURVEILLANCE UNSPECIFIED 01/24/2008 V58.69 taking high- risk medication 01/24/2008 626.4 IRREGULAR MENSTRUAL CYCLE 01/24/2008 V25.40 CONTRACEPTIVE SURVEILLANCE UNSPECIFIED 01/24/2008 V58.69 taking high- risk medication 01/24/2008 626.4 IRREGULAR MENSTRUAL CYCLE 01/24/2008 V25.40 CONTRACEPTIVE SURVEILLANCE UNSPECIFIED 01/24/2008 V58.69 taking high- risk medication 01/24/2008 LISA POE PSYD 626.4 IRREGULAR MENSTRUAL CYCLE 01/24/2008 LISA POE PSYD V25.40 CONTRACEPTIVE SURVEILLANCE UNSPECIFIED 01/24/2008 LISA POE PSYD V58.69 taking high-risk medication 01/24/2008 LISA POE PSYD 626.4 IRREGULAR MENSTRUAL CYCLE 01/24/2008 LISA POE PSYD V25.40 CONTRACEPTIVE SURVEILLANCE UNSPECIFIED 01/24/2008 LISA POE PSYD V58.69 taking high-risk medication 01/24/2008 SAMUEL LAGUNAS APRN 626.4 IRREGULAR MENSTRUAL CYCLE 01/24/2008 SAMUEL LAGUNAS APRN V25.40 CONTRACEPTIVE SURVEILLANCE UNSPECIFIED 01/24/2008 SAMUEL LAGUNAS APRN V58.69 taking high-risk medication 01/24/2008 LISA POE PSYD 626.4 IRREGULAR MENSTRUAL CYCLE 01/24/2008 LISA POE PSYD V25.40 CONTRACEPTIVE SURVEILLANCE UNSPECIFIED 01/24/2008 LISA POE PSYD V58.69 taking high-risk medication 01/24/2008 SAMUEL LAGUNAS APRN 626.4 IRREGULAR MENSTRUAL CYCLE 01/24/2008 SAMUEL LAGUNAS APRN V25.40 CONTRACEPTIVE SURVEILLANCE UNSPECIFIED 01/24/2008 SAMUEL LAGUNAS APRN V58.69 taking high-risk medication 01/24/2008 LISA POE PSYD 626.4 IRREGULAR MENSTRUAL CYCLE 01/24/2008 LISA POE PSYD V25.40 CONTRACEPTIVE SURVEILLANCE UNSPECIFIED 01/24/2008 LISA POE PSYD V58.69 taking high-risk medication 01/24/2008 SAMUEL LAGUNAS APRN 626.4 IRREGULAR MENSTRUAL CYCLE 01/24/2008 SAMUEL LAGUNAS APRN V25.40 CONTRACEPTIVE SURVEILLANCE UNSPECIFIED 01/24/2008 SAMUEL LAGUNAS APRN V58.69 taking high-risk medication 01/24/2008 LISA POE PSYD 626.4 IRREGULAR MENSTRUAL CYCLE 01/24/2008 LISA POE PSYD V25.40 CONTRACEPTIVE SURVEILLANCE UNSPECIFIED 01/24/2008 LISA POE PSYD V58.69 taking high-risk medication 02/05/2008 787.02 nausea 02/05/2008 787.02 nausea 02/05/2008 787.02 nausea 02/05/2008 LISA POE PSYD 787.02 nausea 02/05/2008 LISA POE PSYD 787.02 nausea 02/05/2008 SAMUEL LAGUNAS APRN 787.02 nausea 02/05/2008 LISA POE PSYD 787.02 nausea 02/05/2008 SAMUEL LAGUNAS APRN 787.02 nausea 02/05/2008 LISA POE PSYD 787.02 nausea 02/05/2008 SAMUEL LAGUNAS APRN 787.02 nausea 02/05/2008 LISA POE PSYD 787.02 nausea 02/19/2008 465.9 UPPER RESPIRATORY INFECTION 02/19/2008 465.9 UPPER RESPIRATORY INFECTION 02/19/2008 465.9 UPPER RESPIRATORY INFECTION 02/19/2008 LISA POE PSYD ANN L 465.9 UPPER RESPIRATORY INFECTION 02/19/2008 LISA POE PSYD ANN L 465.9 UPPER RESPIRATORY INFECTION 02/19/2008 SAMUEL LAGUNAS APRN 465.9 UPPER RESPIRATORY INFECTION 02/19/2008 LISA POE PSYD ANN L 465.9 UPPER RESPIRATORY INFECTION 02/19/2008 SAMUEL LAGUNAS APRN 465.9 UPPER RESPIRATORY INFECTION 02/19/2008 LISA POE PSYD ANN L 465.9 UPPER RESPIRATORY INFECTION 02/19/2008 SAMUEL LAGUNAS APRN 465.9 UPPER RESPIRATORY INFECTION 02/19/2008 LISA POE PSYD ANN L 465.9 UPPER RESPIRATORY INFECTION 05/27/2008 461.9 SINUSITIS ACUTE 05/27/2008 461.9 SINUSITIS ACUTE 05/27/2008 461.9 SINUSITIS ACUTE 05/27/2008 LISA POE PSYD ANN L 461.9 SINUSITIS ACUTE 05/27/2008 LISA POE PSYD ANN L 461.9 SINUSITIS ACUTE 05/27/2008 SAMUEL LAGUNAS APRN 461.9 SINUSITIS ACUTE 05/27/2008 LISA POE PSYD ANN L 461.9 SINUSITIS ACUTE 05/27/2008 SAMUEL LAGUNAS APRN 461.9 SINUSITIS ACUTE 05/27/2008 LISA POE PSYD ANN L 461.9 SINUSITIS ACUTE 05/27/2008 SAMUEL LAGUNAS APRN 461.9 SINUSITIS ACUTE 05/27/2008 LISA POE PSYD ANN L 461.9 SINUSITIS ACUTE 09/18/2008 780.79 feelings of weakness 09/18/2008 V05.8 NEED FOR PROPHYLACTIC VACCINATION AND INOCULATION AGAINST OTHER SPECIFIED DISEASE 09/18/2008 780.79 feelings of weakness 09/18/2008 V05.8 NEED FOR PROPHYLACTIC VACCINATION AND INOCULATION AGAINST OTHER SPECIFIED DISEASE 09/18/2008 780.79 feelings of weakness 09/18/2008 V05.8 NEED FOR PROPHYLACTIC VACCINATION AND INOCULATION AGAINST OTHER SPECIFIED DISEASE 09/18/2008 LISA POE PSYD ANN L 780.79 feelings of weakness 09/18/2008 LISA POE PSYD L V05.8 NEED FOR PROPHYLACTIC VACCINATION AND INOCULATION AGAINST OTHER SPECIFIED DISEASE 09/18/2008 LISA POE PSYD L 780.79 feelings of weakness 09/18/2008 LISA POE PSYD L V05.8 NEED FOR PROPHYLACTIC VACCINATION AND INOCULATION AGAINST OTHER SPECIFIED DISEASE 09/18/2008 SAMUEL LAGUNAS APRN 780.79 feelings of weakness 09/18/2008 SAMUEL LAGUNAS APRN V05.8 NEED FOR PROPHYLACTIC VACCINATION AND INOCULATION AGAINST OTHER SPECIFIED DISEASE 09/18/2008 LISA POE PSYD ANN L 780.79 feelings of weakness 09/18/2008 LISA POE PSYD ANN L V05.8 NEED FOR PROPHYLACTIC VACCINATION AND INOCULATION AGAINST OTHER SPECIFIED DISEASE 09/18/2008 SAMUEL LAGUNAS APRN 780.79 feelings of weakness 09/18/2008 SAMUEL LAGUNAS APRN V05.8 NEED FOR PROPHYLACTIC VACCINATION AND INOCULATION AGAINST OTHER SPECIFIED DISEASE 09/18/2008 LISA POE PSYD L 780.79 feelings of weakness 09/18/2008 LISA POE PSYD L V05.8 NEED FOR PROPHYLACTIC VACCINATION AND INOCULATION AGAINST OTHER SPECIFIED DISEASE 09/18/2008 SAMUEL LAGUNAS APRN 780.79 feelings of weakness 09/18/2008 SAMUEL LAGUNAS APRN V05.8 NEED FOR PROPHYLACTIC VACCINATION AND INOCULATION AGAINST OTHER SPECIFIED DISEASE 09/18/2008 LISA POE PSYD ANN L 780.79 feelings of weakness 09/18/2008 LISA POE PSYD L V05.8 NEED FOR PROPHYLACTIC VACCINATION AND INOCULATION AGAINST OTHER SPECIFIED DISEASE 11/02/2008 373.11 HORDEOLUM EXTERNUM 11/02/2008 373.11 HORDEOLUM EXTERNUM 11/02/2008 373.11 HORDEOLUM EXTERNUM 11/02/2008 LISA POE PSYD L 373.11 HORDEOLUM EXTERNUM 11/02/2008 LISA POE PSYD ANN L 373.11 HORDEOLUM EXTERNUM 11/02/2008 SAMUEL LAGUNAS APRN 373.11 HORDEOLUM EXTERNUM 11/02/2008 LISA POE PSYD ANN L 373.11 HORDEOLUM EXTERNUM 11/02/2008 SAMUEL LAGUNAS APRN 373.11 HORDEOLUM EXTERNUM 11/02/2008 LISA POE PSYD L 373.11 HORDEOLUM EXTERNUM 11/02/2008 SAMUEL LAGUNAS APRN 373.11 HORDEOLUM EXTERNUM 11/02/2008 LISA POE PSYD L 373.11 HORDEOLUM EXTERNUM 02/09/2009 079.99 VIRAL SYNDROME 02/09/2009 079.99 VIRAL SYNDROME 02/09/2009 079.99 VIRAL SYNDROME 02/09/2009 LISA POE PSYD L 079.99 VIRAL SYNDROME 02/09/2009 LISA POE PSYD L 079.99 VIRAL SYNDROME 02/09/2009 SAMUEL LAGUNAS APRN 079.99 VIRAL SYNDROME 02/09/2009 LISA POE PSYD L 079.99 VIRAL SYNDROME 02/09/2009 SAMUEL LAGUNAS APRN 079.99 VIRAL SYNDROME 02/09/2009 LISA POE PSYD L 079.99 VIRAL SYNDROME 02/09/2009 SAMUEL LAGUNAS APRN 079.99 VIRAL SYNDROME 02/09/2009 LISA POE PSYD L 079.99 VIRAL SYNDROME 02/15/2009 296.90 MO MOOD DIS NOS 02/15/2009 296.90 MO MOOD DIS NOS 02/15/2009 296.90 MO MOOD DIS NOS 02/15/2009 LISA POE PSYD ANN L 296.90 MO MOOD DIS NOS 02/15/2009 LISA POE PSYD ANN L 296.90 MO MOOD DIS NOS 02/15/2009 SAMUEL LAGUNAS APRN 296.90 MO MOOD DIS NOS 02/15/2009 LISA POE PSYD ANN L 296.90 MO MOOD DIS NOS 02/15/2009 SAMUEL LAGUNAS APRN 296.90 MO MOOD DIS NOS 02/15/2009 LISA POE PSYD ANN L 296.90 MO MOOD DIS NOS 02/15/2009 SAMUEL LAGUNAS APRN 296.90 MO MOOD DIS NOS 02/15/2009 LISA POE PSYD ANN L 296.90 MO MOOD DIS NOS 03/10/2009 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 03/10/2009 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 03/10/2009 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 03/10/2009 LISA PEO PSYD ANN L 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 03/10/2009 LISA POE PSYD ANN L 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 03/10/2009 SAMUEL LAGUNAS APRN 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 03/10/2009 LISA POE PSYD ANN L 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 03/10/2009 SAMUEL LAGUNAS APRN 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 03/10/2009 LISA POE PSYD ANN L 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 03/10/2009 SAMUEL LAGUNAS APRN 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 03/10/2009 LISA POE PSYD ANN L 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 03/11/2009 296.9 MOOD DIS NOS 03/11/2009 300.02 GENERALIZED ANXIETY DISORDER 03/11/2009 296.9 MOOD DIS NOS 03/11/2009 300.02 GENERALIZED ANXIETY DISORDER 03/11/2009 296.9 MOOD DIS NOS 03/11/2009 300.02 GENERALIZED ANXIETY DISORDER 03/11/2009 LISA POE PSYD ANN L 296.9 MOOD DIS NOS 03/11/2009 LISA POE PSYD ANN L 300.02 GENERALIZED ANXIETY DISORDER 03/11/2009 LISA POE PSYD ANN L 296.9 MOOD DIS NOS 03/11/2009 LISA POE PSYD ANN L 300.02 GENERALIZED ANXIETY DISORDER 03/11/2009 SAMUEL LAGUNAS APRN 296.9 MOOD DIS NOS 03/11/2009 SAMUEL LAGUNAS APRN 300.02 GENERALIZED ANXIETY DISORDER 03/11/2009 LISA POE PSYD ANN L 296.9 MOOD DIS NOS 03/11/2009 LISA POE PSYD ANN L 300.02 GENERALIZED ANXIETY DISORDER 03/11/2009 SAMUEL LAGUNAS APRN 296.9 MOOD DIS NOS 03/11/2009 SAMUEL LAGUNAS APRN 300.02 GENERALIZED ANXIETY DISORDER 03/11/2009 LISA POE PSYD ANN L 296.9 MOOD DIS NOS 03/11/2009 LISA OPE PSYD ANN L 300.02 GENERALIZED ANXIETY DISORDER 03/11/2009 SAMUEL LAGUNAS APRN J 296.9 MOOD DIS NOS 03/11/2009 SAMUEL LAGUNAS APRN 300.02 GENERALIZED ANXIETY DISORDER 03/11/2009 LISA POE PSYD ANN L 296.9 MOOD DIS NOS 03/11/2009 LISA POE PSYD ANN L 300.02 GENERALIZED ANXIETY DISORDER 04/02/2009 462 sore throat 04/02/2009 784.0 headache 04/02/2009 462 sore throat 04/02/2009 784.0 headache 04/02/2009 462 sore throat 04/02/2009 784.0 headache 04/02/2009 LISA POE PSYD ANN L 462 sore throat 04/02/2009 LISA POE PSYD ANN L 784.0 headache 04/02/2009 LISA POE PSYD ANN L 462 sore throat 04/02/2009 LISA POE PSYD ANN L 784.0 headache 04/02/2009 SAMUEL LAGUNAS APRN J 462 sore throat 04/02/2009 SAMUEL LAGUNAS APRN J 784.0 headache 04/02/2009 LISA POE PSYD ANN L 462 sore throat 04/02/2009 LISA POE PSYD ANN L 784.0 headache 04/02/2009 SAMUEL LAGUNAS APRN J 462 sore throat 04/02/2009 SAMUEL LAGUNAS APRN J 784.0 headache 04/02/2009 LISA POE PSYD ANN L 462 sore throat 04/02/2009 LISA POE PSYD ANN L 784.0 headache 04/02/2009 SAMUEL LAGUNAS APRN J 462 sore throat 04/02/2009 DIGNA LAGUNAS APRNA J 784.0 headache 04/02/2009 LISA POE PSYD ANN L 462 sore throat 04/02/2009 LISA POE PSYD ANN L 784.0 headache 06/10/2009 959.01 INJURY, OTHER AND UNSPECIFIED, HEAD 06/10/2009 E884.4 ACCIDENTAL FALL FROM BED 06/10/2009 959.01 INJURY, OTHER AND UNSPECIFIED, HEAD 06/10/2009 E884.4 ACCIDENTAL FALL FROM BED 06/10/2009 959.01 INJURY, OTHER AND UNSPECIFIED, HEAD 06/10/2009 E884.4 ACCIDENTAL FALL FROM BED 06/10/2009 LISA POE PSYD L 959.01 INJURY, OTHER AND UNSPECIFIED, HEAD 06/10/2009 LISA POE PSYD L E884.4 ACCIDENTAL FALL FROM BED 06/10/2009 LISA POE PSYD L 959.01 INJURY, OTHER AND UNSPECIFIED, HEAD 06/10/2009 LISA POE PSYD E884.4 ACCIDENTAL FALL FROM BED 06/10/2009 SAMUEL LAGUNAS APRN 959.01 INJURY, OTHER AND UNSPECIFIED, HEAD 06/10/2009 SAMUEL LAGUNAS APRN E884.4 ACCIDENTAL FALL FROM BED 06/10/2009 ILSA POE PSYD L 959.01 INJURY, OTHER AND UNSPECIFIED, HEAD 06/10/2009 LISA POE PSYD E884.4 ACCIDENTAL FALL FROM BED 06/10/2009 SAMUEL LAGUNAS APRN 959.01 INJURY, OTHER AND UNSPECIFIED, HEAD 06/10/2009 SAMUEL LAGUNAS APRN E884.4 ACCIDENTAL FALL FROM BED 06/10/2009 LISA POE PSYD 959.01 INJURY, OTHER AND UNSPECIFIED, HEAD 06/10/2009 LISA POE PSYD E884.4 ACCIDENTAL FALL FROM BED 06/10/2009 SAMUEL LAGUNAS APRN 959.01 INJURY, OTHER AND UNSPECIFIED, HEAD 06/10/2009 SAMUEL LAGUNAS APRN E884.4 ACCIDENTAL FALL FROM BED 06/10/2009 LISA POE PSYD L 959.01 INJURY, OTHER AND UNSPECIFIED, HEAD 06/10/2009 LISA POE PSYD E884.4 ACCIDENTAL FALL FROM BED 08/11/2009 692.9 DERMATITIS CONTACT UNSPECIFIED 08/11/2009 698.9 PRURITUS NOS 08/11/2009 692.9 DERMATITIS CONTACT UNSPECIFIED 08/11/2009 698.9 PRURITUS NOS 08/11/2009 692.9 DERMATITIS CONTACT UNSPECIFIED 08/11/2009 698.9 PRURITUS NOS 08/11/2009 LISA POE PSYD ANN L 692.9 DERMATITIS CONTACT UNSPECIFIED 08/11/2009 LISA POE PSYD ANN L 698.9 PRURITUS NOS 08/11/2009 LISA POE PSYD ANN L 692.9 DERMATITIS CONTACT UNSPECIFIED 08/11/2009 LISA POE PSYD ANN L 698.9 PRURITUS NOS 08/11/2009 SAMUEL LAGUNAS APRN J 692.9 DERMATITIS CONTACT UNSPECIFIED 08/11/2009 DIGNA LAGUNAS APRNA J 698.9 PRURITUS NOS 08/11/2009 LISA POE PSYD ANN L 692.9 DERMATITIS CONTACT UNSPECIFIED 08/11/2009 LISA POE PSYD ANN L 698.9 PRURITUS NOS 08/11/2009 DIGNA LAGUNAS APRNA J 692.9 DERMATITIS CONTACT UNSPECIFIED 08/11/2009 SAMUEL LAGUNAS APRN J 698.9 PRURITUS NOS 08/11/2009 LISA POE PSYD ANN L 692.9 DERMATITIS CONTACT UNSPECIFIED 08/11/2009 LISA POE PSYD ANN L 698.9 PRURITUS NOS 08/11/2009 DIGNA LAGUNAS APRNA J 692.9 DERMATITIS CONTACT UNSPECIFIED 08/11/2009 SAMUEL LAGUNAS APRN J 698.9 PRURITUS NOS 08/11/2009 LISA POE PSYD ANN L 692.9 DERMATITIS CONTACT UNSPECIFIED 08/11/2009 LISA POE PSYD ANN L 698.9 PRURITUS NOS 01/25/2011 799.22 IRRITIBILITY 01/25/2011 799.22 IRRITIBILITY 01/25/2011 799.22 IRRITIBILITY 01/25/2011 LISA POE PSYD ANN L 799.22 IRRITIBILITY 01/25/2011 LISA POE PSYD ANN L 799.22 IRRITIBILITY 01/25/2011 SAMUEL LAGUNAS APRN 799.22 IRRITIBILITY 01/25/2011 LISA POE PSYD ANN L 799.22 IRRITIBILITY 01/25/2011 SAMUEL LAGUNAS APRN 799.22 IRRITIBILITY 01/25/2011 LISA POE PSYD 799.22 IRRITIBILITY 01/25/2011 SAMUEL LAGUNAS APRN 799.22 IRRITIBILITY 01/25/2011 LISA OPE PSYD 799.22 IRRITIBILITY 01/25/2011 Ot 719.41 01/25/2011 Ot 724.1 01/25/2011 Ot 959.19 01/25/2011 Ot E000.8 01/25/2011 Ot E002.5 01/25/2011 Ot E849.8 01/25/2011 Ot E888.8 01/25/2011 Ot V57.1 02/20/2011 314.00 ADHD INATTENTIVE 02/20/2011 314.00 ADHD INATTENTIVE 02/20/2011 314.00 ADHD INATTENTIVE 02/20/2011 LISA POE PSYD L 314.00 ADHD INATTENTIVE 02/20/2011 LISA POE PSYD L 314.00 ADHD INATTENTIVE 02/20/2011 SAMUEL LAGUNAS APRN 314.00 ADHD INATTENTIVE 02/20/2011 LISA POE PSYD 314.00 ADHD INATTENTIVE 02/20/2011 SAMUEL LAGUNAS APRN 314.00 ADHD INATTENTIVE 02/20/2011 LISA POE PSYD L 314.00 ADHD INATTENTIVE 02/20/2011 SAMUEL LAGUNAS APRN 314.00 ADHD INATTENTIVE 02/20/2011 LISA POE PSYD L 314.00 ADHD INATTENTIVE 03/13/2011 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 03/13/2011 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 03/13/2011 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 03/13/2011 LISA POE PSYD L 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 03/13/2011 LISA POE PSYD L 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 03/13/2011 SAMUEL LAGUNAS APRN 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 03/13/2011 LISA POE PSYD ANN L 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 03/13/2011 SAMUEL LAGUNAS APRN 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 03/13/2011 LISA POE PSYD ANN L 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 03/13/2011 SAMUEL LAGUNAS APRN 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 03/13/2011 LISA POE PSYD ANN L 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 05/11/2011 611.71 BREAST PAIN 05/11/2011 786.2 COUGH 05/11/2011 611.71 BREAST PAIN 05/11/2011 786.2 COUGH 05/11/2011 611.71 BREAST PAIN 05/11/2011 786.2 COUGH 05/11/2011 LISA POE PSYD ANN L 611.71 BREAST PAIN 05/11/2011 LISA POE PSYD ANN L 786.2 COUGH 05/11/2011 LISA POE PSYD ANN L 611.71 BREAST PAIN 05/11/2011 LISA POE PSYD ANN L 786.2 COUGH 05/11/2011 SAMUEL LAGUNAS APRN 611.71 BREAST PAIN 05/11/2011 SAMUEL LAGUNAS APRN 786.2 COUGH 05/11/2011 LISA POE PSYD ANN L 611.71 BREAST PAIN 05/11/2011 LISA POE PSYD ANN L 786.2 COUGH 05/11/2011 SAMUEL LAGUNAS APRN 611.71 BREAST PAIN 05/11/2011 SAMUEL LAGUNAS APRN 786.2 COUGH 05/11/2011 LISA POE PSYD ANN L 611.71 BREAST PAIN 05/11/2011 LISA POE PSYD ANN L 786.2 COUGH 05/11/2011 SAMUEL LAGUNAS APRN 611.71 BREAST PAIN 05/11/2011 SAMUEL LAGUNAS APRN 786.2 COUGH 05/11/2011 LISA POE PSYD ANN L 611.71 BREAST PAIN 05/11/2011 LISA POE PSYD ANN L 786.2 COUGH 06/13/2011 Ot 296.20 DEPRESS DISORDER-UNSPEC 06/13/2011 Ot 599.0 URIN TRACT INFECTION NOS 06/13/2011 Ot V62.84 SUICIDAL IDEATION 08/18/2011 723.1 CERVICALGIA 08/18/2011 728.85 MUSCLE SPASM 08/18/2011 729.5 ARM PAIN 08/18/2011 E888.9 UNSPECIFIED ACCIDENTAL FALL 08/18/2011 723.1 CERVICALGIA 08/18/2011 728.85 MUSCLE SPASM 08/18/2011 729.5 ARM PAIN 08/18/2011 E888.9 UNSPECIFIED ACCIDENTAL FALL 08/18/2011 723.1 CERVICALGIA 08/18/2011 728.85 MUSCLE SPASM 08/18/2011 729.5 ARM PAIN 08/18/2011 E888.9 UNSPECIFIED ACCIDENTAL FALL 08/18/2011 LISA POE PSYD ANN L 723.1 CERVICALGIA 08/18/2011 LISA POE PSYD ANN L 728.85 MUSCLE SPASM 08/18/2011 LISA POE PSYD ANN L 729.5 ARM PAIN 08/18/2011 LISA POE PSYD L E888.9 UNSPECIFIED ACCIDENTAL FALL 08/18/2011 LISA POE PSYD ANN L 723.1 CERVICALGIA 08/18/2011 LISA POE PSYD ANN L 728.85 MUSCLE SPASM 08/18/2011 LISA POE PSYD ANN L 729.5 ARM PAIN 08/18/2011 LISA POE PSYD L E888.9 UNSPECIFIED ACCIDENTAL FALL 08/18/2011 SAMUEL LAGUNAS APRN 723.1 CERVICALGIA 08/18/2011 SAMUEL LAGUNAS APRN 728.85 MUSCLE SPASM 08/18/2011 SAMUEL LAGUNAS APRN 729.5 ARM PAIN 08/18/2011 SAMUEL LAGUNAS APRN E888.9 UNSPECIFIED ACCIDENTAL FALL 08/18/2011 LISA POE PSYD ANN L 723.1 CERVICALGIA 08/18/2011 LISA POE PSYD ANN L 728.85 MUSCLE SPASM 08/18/2011 LISA POE PSYD ANN L 729.5 ARM PAIN 08/18/2011 LISA POE PSYD L E888.9 UNSPECIFIED ACCIDENTAL FALL 08/18/2011 SAMUEL LAGUNAS APRN 723.1 CERVICALGIA 08/18/2011 SAMUEL LAGUNAS APRN 728.85 MUSCLE SPASM 08/18/2011 SAMUEL LAGUNAS APRN J 729.5 ARM PAIN 08/18/2011 SAMUEL LAGUNAS APRN E888.9 UNSPECIFIED ACCIDENTAL FALL 08/18/2011 LISA POE PSYD ANN L 723.1 CERVICALGIA 08/18/2011 LISA POE PSYD ANN L 728.85 MUSCLE SPASM 08/18/2011 LISA POE PSYD ANN L 729.5 ARM PAIN 08/18/2011 LISA POE PSYD L E888.9 UNSPECIFIED ACCIDENTAL FALL 08/18/2011 SAMUEL LAGUNAS APRN J 723.1 CERVICALGIA 08/18/2011 SAMUEL LAGUNAS APRN J 728.85 MUSCLE SPASM 08/18/2011 SAMUEL LAGUNAS APRN J 729.5 ARM PAIN 08/18/2011 SAMUEL LAGUNAS APRN E888.9 UNSPECIFIED ACCIDENTAL FALL 08/18/2011 LISA POE PSYD ANN L 723.1 CERVICALGIA 08/18/2011 LISA POE PSYD ANN L 728.85 MUSCLE SPASM 08/18/2011 LISA POE PSYD ANN L 729.5 ARM PAIN 08/18/2011 LISA POE PSYD L E888.9 UNSPECIFIED ACCIDENTAL FALL 11/23/2011 815.00 CLOSED FRACTURE OF METACARPAL BONE(S) SITE UNSPECIFIED 11/23/2011 815.00 CLOSED FRACTURE OF METACARPAL BONE(S) SITE UNSPECIFIED 11/23/2011 815.00 CLOSED FRACTURE OF METACARPAL BONE(S) SITE UNSPECIFIED 11/23/2011 LISA POE PSYD ANN L 815.00 CLOSED FRACTURE OF METACARPAL BONE(S) SITE UNSPECIFIED 11/23/2011 LISA POE PSYD ANN L 815.00 CLOSED FRACTURE OF METACARPAL BONE(S) SITE UNSPECIFIED 11/23/2011 SAMUEL LAGUNAS APRN 815.00 CLOSED FRACTURE OF METACARPAL BONE(S) SITE UNSPECIFIED 11/23/2011 LISA POE PSYD ANN L 815.00 CLOSED FRACTURE OF METACARPAL BONE(S) SITE UNSPECIFIED 11/23/2011 SAMUEL LAGUNAS APRN 815.00 CLOSED FRACTURE OF METACARPAL BONE(S) SITE UNSPECIFIED 11/23/2011 LISA POE PSYD 815.00 CLOSED FRACTURE OF METACARPAL BONE(S) SITE UNSPECIFIED 11/23/2011 SAMUEL LAGUNAS APRN 815.00 CLOSED FRACTURE OF METACARPAL BONE(S) SITE UNSPECIFIED 11/23/2011 LISA POE PSYD 815.00 CLOSED FRACTURE OF METACARPAL BONE(S) SITE UNSPECIFIED 08/21/2012 V65.11 NEW MOMMY VISIT 08/21/2012 LISA POE PSYD V65.11 NEW MOMMY VISIT 08/21/2012 LISA POE PSYD V65.11 NEW MOMMY VISIT 08/21/2012 SAMUEL LAGUNAS APRN V65.11 NEW MOMMY VISIT 08/21/2012 LISA POE PSYD V65.11 NEW MOMMY VISIT 08/21/2012 SAMUEL LAGUNAS APRN V65.11 NEW MOMMY VISIT 08/21/2012 LISA POE PSYD V65.11 NEW MOMMY VISIT 08/21/2012 SAMUEL LAGUNAS APRN V65.11 NEW MOMMY VISIT 08/21/2012 LISA POE PSYD V65.11 NEW MOMMY VISIT 09/11/2012 AGNIESZKA GARCÍA, CAROL Zhao Ot 644.03 THRT IRASEMA LABOR-ANTEPART 10/13/2012 MONTANA SHELDON DO Ot 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 10/13/2012 MONTANA SHELDON DO Ot 654.71 ABNORM VAGINA-DELIVERED 10/13/2012 MONTANA SHELDON DO Ot 664.11 DEL W 2 DEG LACERAT-DEL 10/13/2012 MONTANA SHELDON DO Ot V06.1 [id number], COMBINED [ 10/13/2012 MONTANA SHELDON DO Ot V27.0 DELIVER-SINGLE LIVEBORN 08/11/2013 LISA POE PSYD 296.32 MO DEPRESSIVE RECURRENT MODERATE 08/11/2013 LISA POE PSYD 296.32 MO DEPRESSIVE RECURRENT MODERATE 08/11/2013 SAMUEL LAGUNAS APRN 296.32 MO DEPRESSIVE RECURRENT MODERATE 08/11/2013 LISA POE PSYD L 296.32 MO DEPRESSIVE RECURRENT MODERATE 08/11/2013 SAMUEL LAGUNAS APRN 296.32 MO DEPRESSIVE RECURRENT MODERATE 08/11/2013 LISA POE PSYD L 296.32 MO DEPRESSIVE RECURRENT MODERATE 08/11/2013 SAMUEL LAGUNAS APRN 296.32 MO DEPRESSIVE RECURRENT MODERATE 08/11/2013 LISA POE PSYD L 296.32 MO DEPRESSIVE RECURRENT MODERATE 10/01/2013 SAMUEL LAGUNAS APRN 309.81 AN PTSD 10/01/2013 LISA POE PSYD L 309.81 AN PTSD 10/01/2013 SAMUEL LAGUNAS APRN 309.81 AN PTSD 10/01/2013 LISA POE PSYD L 309.81 AN PTSD 12/01/2014 RODGER GARCÍA, RAFFAELE Celis Ot 640.03 THREATEN ABORT-ANTEPART 04/28/2015 MONTANA SHELDON DO Ot O26.853 SPOTTING COMPLICATING , THIRD T 04/28/2015 MONTANA SHELDON DO Ot Z3A.00 WEEKS OF GESTATION OF NOT SPEC 05/03/2015 DASIA GIBSON DO Ot O60.14X0 LABOR THIRD TRI W DELIVE 05/03/2015 DASIA GIBSON DO Ot Z23 ENCOUNTER FOR IMMUNIZATION 05/03/2015 DASIA GIBSON DO Ot Z37.0 SINGLE LIVE 05/03/2015 DASIA GIBSON DO Ot Z3A.36 36 WEEKS GESTATION OF 07/10/2017 EDSON CRUZ MD Ot S61.411D LACERATION WITHOUT FOREIGN BODY OF RIGHT 07/10/2017 EDSON CRUZ MD Ot X58.XXXD EXPOSURE TO OTHER SPECIFIED FACTORS, SUB Procedures Code [place] [address] PSYTX PT&/FAMILY 45 MINUTES 05/24/2012 03552 PSYTX PT&/FAMILY 45 MINUTES 07/10/2012 75.69 REPAIR OB LACERATION NEC 10/11/2012 16959 PSYCH DIAGNOSTIC EVALUATION 08/11/2013 32078 PSYTX PT&/FAMILY 45 MINUTES 08/21/2013 19947 PSYTX PT&/FAMILY 45 MINUTES 08/28/2013 01777 PSYTX PT&/FAMILY 45 MINUTES 10/15/2013 52773 PSYTX PT&/FAMILY 45 MINUTES 03/10/2014 [id number] DELIVERY OF PRODUCTS OF CONCEPTION, EXTE 05/02/2015 Results Test Result Range CULTURE, GENITAL - 04/17/17 09:57 CULTURE, GENITAL SEE NOTE NRG SU[employer]PATH PAP RFX HPV mRNA E6/E7 - 04/17/17 09:57 CLINICAL INFORMATION: NRG LMP: 04/05/17 NRG PREV. PAP: NRG PREV. BX: NRG SOURCE: [employer] NRG STATEMENT OF ADEQUACY: NRG INTERPRETATION/RESULT: NRG SUPERVISOR TUMBLING AND ROLLING: NRG REVIEW SUPERVISOR TUMBLING AND ROLLING: NRG THYROID PEROXIDASE ANTIBODIES - 11/06/17 09:21 THYROID PEROXIDASE ANTIBODIES 1 IU/mL <9 TSH - 01/07/18 08:19 TSH 4.46 mIU/L NRG Encounters ACCT No. Visit Date/Time Discharge Status Pt. Type Provider Facility Loc./Unit Complaint [id number] 03/09/2014 07:44:00 03/09/2014 23:59:59 CLS Outpatient LISA POE PSYD [id number] 10/14/2013 09:44:00 10/14/2013 23:59:59 CLS Outpatient LISA POE PSYD [id number] 10/01/2013 11:43:00 10/01/2013 23:59:59 CLS Outpatient SAMUEL LAGUNAS APRN [id number] 10/01/2013 11:43:00 10/01/2013 23:59:59 CLS Outpatient SAMUEL LAGUNAS APRN [id number] 08/28/2013 10:41:00 08/28/2013 23:59:59 CLS Outpatient LISA POE PSYD [id number] 08/28/2013 07:49:00 08/28/2013 23:59:59 CLS Outpatient SAMUEL LAGUNAS APRN [id number] 08/21/2013 13:37:00 08/21/2013 23:59:59 CLS Outpatient LISA POE PSYD [id number] 08/11/2013 10:31:00 08/11/2013 23:59:59 CLS Outpatient LISA POE PSYD [id number] 07/08/2012 14:39:00 07/08/2012 23:59:59 CLS Outpatient [id number] 05/24/2012 11:03:00 05/24/2012 23:59:59 CLS Outpatient [id number] 08/21/2012 13:55:00 Document Registration [facility] 12/01/2014 13:14:09 ACT Document Registration [id number] 07/08/2017 08:40:00 07/08/2017 09:56:00 DIS Outpatient ANTHONY GARCÍA, EDSON Pizarro [facility] ER 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 [id number] 11/16/2016 09:58:00 11/16/2016 23:59:59 CLS Preadmit FATOUMATA MAX SELF SEALING F[employer] 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 [facility] REHAB NECK AND SHOULDER PAIN [id number] 10/17/2016 14:00:00 10/17/2016 23:59:59 CLS Preadmit [place] SELF SEALING [employer] 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 [facility] RAD 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 [id number] 10/12/2016 07:46:00 10/12/2016 23:59:59 CLS Preadmit JATINDER HESS SELF SEALING F[employer]EL 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 [facility] RAD 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,CERVICAL REG [id number] 05/02/2015 05:15:00 05/03/2015 15:15:00 DIS Inpatient DASIA GIBSON DO [facility] LDRP LEAKING FLUID [id number] 04/28/2015 20:19:00 04/28/2015 22:50:00 DIS Outpatient MONTANA SHELDON DO [facility] WSo BLEEDING [id number] 12/01/2014 13:13:00 12/01/2014 15:10:00 DIS Emergency RAFFAELE SOARES MD [facility] ER VAG BLEEDING 15 WKS PREG [id number] 10/10/2012 20:38:00 10/13/2012 15:30:00 DIS Inpatient MONTANA SHELDON DO [facility] WS C/O CONTRACTIONS [id number] 09/11/2012 18:52:00 09/11/2012 20:00:00 DIS Outpatient AGNIESZKA GARCÍA, CAROL [facility] WSo ABD PAIN,NAUSEA [id number] 06/13/2011 16:49:00 Document Registration [id number] 12/27/2010 10:02:00 Document Registration [id number] 11/12/2017 18:20:00 11/12/2017 23:59:59 CLS Outpatient [place] [facility] [id number] 01/07/2018 08:20:00 Document Registration [id number] 11/06/2017 09:00:00 Document Registration [id number] 04/17/2017 08:40:00 Document Registration
[2018-01-31] MEDS ORDERED: BUPIVACAINE 0.5% 30 ML (SENSORCAINE) VIAL INJ ONE (19:30)
[2018-01-31] MEDS ORDERED: LIDOCAINE/EPI 1%-1:100,000 (XYLOCAINE) 20ML INJ ONE (19:30)
[2018-01-31] MEDS ORDERED: LIDOCAINE/EPI 2% 1:100,00 (XYLOCAINE) 20 ML VIAL INJ ONE (19:30)
[2018-01-31 19:51] VITALS: BP 108/70
== END 2018-01-31 19:52 | disposition home or self-care (01) ==
LOC: EDUNIT# 19:13 → ER 19:14
DX: K08.89 Other specified disorders of teeth and supporting structures (principal); F32.9 Major depressive disorder, single episode, unspecified; Z82.49 Family history of ischemic heart disease and other diseases of the circulatory system
CPT/HCPCS: 99282

== ENCOUNTER 2022-02-16 07:30 | Emergency (ER) | payer MEDICAID ==
[~2022-02-16] VITALS: Ht 157 cm; Wt 61.2 kg
[~2022-02-16 07:30] MED LIST changes: +AMOX500C2 PO; +NAPR-915 PO
[2022-02-16] MEDS ORDERED: KETOROLAC 30 MG/ML VIAL IVP ONE (08:15)
[2022-02-16] MEDS ORDERED: ORPHENADRINE 60 MG/2 ML (NORFLEX) AMP (ED ONLY) IV ONE (08:15)
[2022-02-16] MEDS ORDERED: NS IV 1000 ML 1,000 ML IV SCH (08:15)
[2022-02-16] MEDS ORDERED: NS 100 ML (IVPB) BAG IV ONE (08:30)
[2022-02-16] MEDS ORDERED: HOLD METFORMIN - RECEIVED CONTRAST 20 ML VIAL IV SCH (08:30)
[2022-02-16] MEDS ORDERED: IOHEXOL 350 MG/ML 100 ML (OMNIPAQUE 350) VIAL IV ONE (08:30)
[2022-02-16] MEDS ORDERED: ONDANSETRON 4 MG/2 ML (SDV) Z0FRAN IVP ONE (08:45)
[2022-02-16 09:08] LABS: CALCIUM 9.3 MG/DL (8.5-10.1)
[2022-02-16 09:13] LABS: CREATININE SERUM 0.77 MG/DL (0.60-1.30)
--- NOTE | 2022-02-16 09:23 | Diagnostic Imaging Report ---
INDICATION: Neck pain with dizziness and nausea. Axial imaging through the neck was performed after the administration of intravenous contrast utilizing the CT angiography protocol. Multiplanar, 3-D MIP reformations were also performed. Both the right and left common carotid arteries are widely patent. Carotid bifurcations are unremarkable. The right and left internal carotid arteries are widely patent. The vertebral arteries are codominant and appear to be widely patent. No vessel injury or evidence of dissection is identified. The basilar artery is widely patent. There is normal curvature and alignment to the cervical spine. No fractures are identified. The prevertebral tissues are within normal limits. The odontoid is intact. IMPRESSION: Unremarkable CT angiogram of the neck. No vessel injury is identified. Dictated by: Dictated on workstation # [id number]
[2022-02-16] MEDS ORDERED: PRD50T PO (09:49)
[2022-02-16] MEDS ORDERED: METH-732 PO (09:49)
--- NOTE | 2022-02-16 09:49 | ED Neck-Back Pain/Injury ---
General Chief Complaint: Head/Cervical Problems Stated Complaint: NECK PAIN Nursing Triage Note: PT PRESENTS TO ED WITH COMPLAINTS OF NECK PAIN. PT STATES SHE HAS A PREVIOUS INJURY/NERVE DAMAGE 11 YEARS AGO. AT 5:30 AM TODAY SHE WAS STRETCHING, HEARD A CRACK, DIZZY AND FELL DOWN, AND THEN BECAME NAUSEATED. Source of Information: Patient Exam Limitations: No Limitations History of Present Illness Date Seen by Provider: Feb 16, 2022 Time Seen by Provider: 08:03 Initial Comments Patient is a 31yo female who presents to the ER with a complaint of left sided neck pain. She got up this morning to get her kids ready for school and was stretching with her arms above her head and head to the right. SHe felt and heard a "pop" and then had immediate pain which radiated up into her head. SHe got nauseated, dizzy. SHe felt like she was going to pass out. She did not take anything for pain. No severe RODRIGUEZ. no vision changes. no numbness in the fac e or speech difficulties. No arm weakness or nausea. She has never had anything quite this severe before. Location: Other (neck - left side) Timing/Duration: 1-3 Hours Severity: Moderate Pain/Injury Location: Neck Method of Injury: Other (stretching) Modifying Factors: Worse With Movement Allergies and Home Medications Allergies Coded Allergies: No Known Drug Allergies (Unverified , 06/13/11) Patient Home Medication List Home Medication List Reviewed: Yes Amoxicillin (Amoxicillin) 500 Mg Capsule, 500 MG PO TID Prescribed by: BARB CHILDS on 01/31/181916 Ibuprofen (Ibuprofen) 600 Mg Tablet, 600 MG PO Q6H Prescribed by: MONTANA SHLEDON on 05/03/15 1312 Methocarbamol (Methocarbamol) 750 Mg Tablet, 750 MG PO Q8H PRN for muscle spasm Prescribed by: LAXMI GARCÍA on 02/16/22 0900 Naproxen (Naproxen) 500 Mg Tablet, 500 MG PO BID Prescribed by: BARB CHILDS on 01/31/181916 [id number]/Iron Fumarate/FA/Dss ( 19 Tablet) 1 Each Tablet, 1 EACH PO DAILY, (Reported) Entered as Reported by: DEUCE RUIZ on 04/28/152139 Prednisone (Prednisone) 50 Mg Tab, 50 MG PO DAILY Prescribed by: LAXMI GARCÍA on 02/16/22 0949 Review of Systems Constitutional: see HPI EENTM: no symptoms reported Respiratory: no symptoms reported Cardiovascular: no symptoms reported Genitourinary: no symptoms reported Musculoskeletal: muscle pain, muscle stiffness, neck pain Skin: no symptoms reported Psychiatric/Neurological: No Symptoms Reported All Other Systems Reviewed Negative Unless Noted: Yes Past Xnkarid-Kqkfqw-Keqheu Hx Patient Social History Tobacco Use?: No Substance use?: No Alcohol Use?: No Pt feels they are or have been: No Immunizations Up To Date Tetanus Booster (TDap): Less than 5yrs PED Vaccines UTD: Yes Seasonal Allergies Seasonal Allergies: No Past Medical History Surgeries: No Respiratory: No Currently Using CPAP: No Currently Using BIPAP: No Cardiac: No Neurological: Yes (MILD- SEVERAL YRS AGO ) Reproductive Disorders: No Female Reproductive Disorders: Denies Sexually Transmitted Disease: No HIV/AIDS: No Gastrointestinal: No Musculoskeletal: No Endocrine: No Cancer: No Psychosocial: Yes Depression Integumentary: Yes (SEASONAL ) Eczema Blood Disorders: No Adverse Reaction/Blood Tranf: No Family Medical History Alcoholism 19 FATHER Arthritis 19 MOTHER Asthma G8 BROTHER Cardiovascular disease G8 BROTHER (MURMUR) Diabetes mellitus 19 MOTHER Headache disorder G8 BROTHER Hypercholesterolemia 19 FATHER Hypertension 19 MOTHER Psychosocial problem 19 FATHER 19 MOTHER G8 BROTHER Respiratory disorder 19 MOTHER Severe allergy 19 MOTHER Visual disorder G8 BROTHER No Pertinent Family Hx Physical Exam Vital Signs Vital Signs - First Documented 02/16/22 07:35 Temp 36.8 Pulse 95 Resp 14 B/P (MAP) 125/74 (91) Pulse Ox 100 Capillary Refill : Less Than 3 Seconds Height, Weight, BMI Height: 5'2.00" Weight: 130lbs. 0oz. 58.103058ly; 24.00 BMI Method:Stated General Appearance: No Apparent Distress, WD/WN HEENT: PERRL/EOMI, Normal ENT Inspection, Pharynx Normal Neck: Other (decreased ROM ; head tilted to the right and slightly forward. 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 Norm as Tested Skin: Normal Color, Warm/Dry Progress/Results/Core Measures Results/Orders Lab Results Laboratory Tests Test 02/16/22 08:30 Range/Units Sodium Level 137 135-145 MMOL/L Potassium Level 4.0 3.6-5.0 MMOL/L Chloride Level 103 98-107 MMOL/L Carbon Dioxide Level 25 21-32 MMOL/L Anion Gap 9 5-14 MMOL/L Blood Urea Nitrogen 13 7-18 MG/DL Creatinine 0.77 0.60-1.30 MG/DL Estimat Glomerular Filtration Rate 106 BUN/Creatinine Ratio 17 Glucose Level 92 70-105 MG/DL Calcium Level 9.3 8.5-10.1 MG/DL My Orders Orders - LAXMI GARCÍA MD Ed Iv/Invasive Line Start (02/16/22 08:14) Basic Metabolic Panel (02/16/22 08:14) Ct Angio Neck W (02/16/22 08:14) Ketorolac Injection (Toradol Injection) (02/16/22 08:15) Orphenadrine Inj (Ed Only) (Norflex Inje (02/16/22 08:15) Ns Iv 1000 Ml (Sodium Chloride 0.9%) (02/16/22 08:15) Iohexol Injection (Omnipaque 350 Mg/Ml 1 (02/16/22 08:30) Received Contrast (Hold Metformin- Contr (02/16/22 08:30) Ns (Ivpb) (Sodium Chloride 0.9% Ivpb Bag (02/16/22 08:30) Ondansetron Injection (Zofran Injectio (02/16/22 08:45) Medications Given in ED Vital Signs/I&O 02/16/22 02/16/22 07:35 10:11 Temp 36.8 36.8 Pulse 95 95 Resp 14 14 B/P (MAP) 125/74 (91) 99/72 Pulse Ox 100 100 Blood Pressure Mean: 91 Progress Progress Note : Time: 09:45 Progress Note CTA neck - normal.. Patient feels better after torafol and norflex. Able to lay beack and relax a little. Will put her on 3 days of steroids (she finished a round 3-4 days ago for some poison yann). Also some muscle relaxers. Return precautions given. Departure Impression Primary Impression: Torticollis, acute Disposition: 01 HOME, SELF-CARE Condition: Stable Departure-Patient Inst. Decision time for Depature: 09:46 Referrals: [facility]/K (PCP/Family) Primary Care Physician Patient Instructions: Torticollis, Adult Add. Discharge Instructions: Moist heat to the muscles of your neck on the left side. You can use over the counter Biofreeze or other muscle rub ointments as directed on the packaging. Muscle relaxers as needed every 8 hours. Prednisone 50mg, once a day for 3 days. Do not take Prednisone and Ibuprofen at the same time. Return to the ER for re-evaluation if you have any increased pain, weakness, numbness or other emergent, concerning symptoms. Scripts Prednisone (Prednisone) 50 Mg Tab 50 MG PO DAILY, #3 TAB Prov: LAXMI GARCÍA MD 02/16/22 Methocarbamol (Methocarbamol) 750 Mg Tablet 750 MG PO Q8H PRN for muscle spasm, #15 TAB Prov: LAXMI GARCÍA MD 02/16/22 Copy Copies To 1: EMMY TOVAR KATHRYN M MD Feb 16, 2022 09:49
[2022-02-16 10:11] VITALS: BP 99/72
== END 2022-02-16 10:10 | disposition home or self-care (01) ==
LOC: EDUNIT# 07:30 → ER 07:32
DX: M43.6 Torticollis (principal)
CPT/HCPCS: 36415; 70498; 80048; 96361; 96374; 96375

== ENCOUNTER 2022-11-25 13:02 | Emergency (ER) | payer MEDICAID ==
[~2022-11-25 13:02] MED LIST changes: +METH-732 PO; +PRD50T PO
--- NOTE | 2022-11-25 13:39 | ED General ---
General Chief Complaint: Psych/Social Disorder Stated Complaint: PN LEFT SHOULDER/ANXIETY Nursing Triage Note: PT AMB TO RM 9 PT CO OF CHRONIC L SHOULDER PAIN FROM NERVE DAMAGE. PT STATES L ARM HURTS, PT STATES HAS HX OF HEART ARRTHYMIA. STATES HAS OCC C/P DENIES AT THIS X. PT STATES WONDERS IF SHE HAS BREAST CA, HAS SOME L BREAST PAIN THAT COMES AND GOES. PT HAS PAIN 6/10 AND NUMBNESS FROM CHRONIC SHOULDER PAIN. PT STATES HAS ANXIETY AND KEEPS THINKING OF PROBLEMS THAT SHE COULD HAVE. STATES ANXIETY HAS ALWAYS BEEN AN ISSUE FOR HER Source of Information: Patient Exam Limitations: No Limitations History of Present Illness Date Seen by Provider: Nov 25, 2022 Time Seen by Provider: 13:37 Initial Comments Patient is a 31-year-old female who presents to ED with left shoulder pain, left arm pain, chest tightness shortness of breath, anxiety. History anxiety. She Does take Prozac. She states over the past 2 weeks she has had left shoulder pain. History of nerve injury from a accident when she was younger. She has chronic pain in her left shoulder but this became worse over the past 2 weeks. Patient states pain radiates into the left breast. She denies of any palpable nodules in her axilla or on her breast. She is scheduled follow-up with her [facility] on Sunday. This over the past few weeks worse over the past 3 days shortness of breath, feeling anxious with panic attacks. She does not take any medication for her panic attacks. She states she feels her heart beating fast. She gets short of breath during these episodes. She states she is concern for potential breast cancer. No known cardiac history except arrhythmia. Denies of any recent travels, surgeries, nausea, vomiting, diarrhea, cough, sore throat, night sweats. Allergies and Home Medications Allergies Coded Allergies: No Known Drug Allergies (Unverified , 06/13/11) Patient Home Medication List Home Medication List Reviewed: Yes Amoxicillin (Amoxicillin) 500 Mg Capsule, 500 MG PO TID Prescribed by: BARB CHILDS on 01/31/181916 Ibuprofen (Ibuprofen) 600 Mg Tablet, 600 MG PO Q6H Prescribed by: MONTANA SHELDON on 05/03/15 1312 Methocarbamol (Methocarbamol) 750 Mg Tablet, 750 MG PO Q8H PRN for muscle spasm Prescribed by: LAXMI GARCÍA on 02/16/2249 Naproxen (Naproxen) 500 Mg Tablet, 500 MG PO BID Prescribed by: BARB CHILDS on 01/31/181916 [id number]/Iron Fumarate/FA/Dss ( 19 Tablet) 1 Each Tablet, 1 EACH PO DAILY, (Reported) Entered as Reported by: DEUCE RUIZ on 04/28/152139 Prednisone (Prednisone) 50 Mg Tab, 50 MG PO DAILY Prescribed by: LAXMI GARCÍA on 02/16/22948 Review of Systems Review of Systems Constitutional: No chills, No diaphoresis EENTM: No ear pain, No blurred vision, No double vision Respiratory: No cough; short of breath Cardiovascular: chest pain; No edema; other (Arrhythmia) Gastrointestinal: No abdominal pain, No nausea, No vomiting Genitourinary: No decreased output, No discharge Musculoskeletal: No back pain, No joint pain, No joint swelling, No muscle pain Skin: No change in color, No change in hair/nails All Other Systems Reviewed Negative Unless Noted: Yes Past Afrqqwy-Brieqk-Bsvams Hx Patient Social History Tobacco Use?: No Substance use?: No Alcohol Use?: No Pt feels they are or have been: No Immunizations Up To Date Tetanus Booster (TDap): Less than 5yrs PED Vaccines UTD: Yes Seasonal Allergies Seasonal Allergies: No Past Medical History Surgeries: No Respiratory: No Currently Using CPAP: No Currently Using BIPAP: No Cardiac: No Neurological: Yes (MILD- SEVERAL YRS AGO ) Reproductive Disorders: No Female Reproductive Disorders: Denies Sexually Transmitted Disease: No HIV/AIDS: No Gastrointestinal: No Musculoskeletal: No Endocrine: No Cancer: No Psychosocial: Yes Depression Integumentary: Yes (SEASONAL ) Eczema Blood Disorders: No Adverse Reaction/Blood Tranf: No Family Medical History Alcoholism 19 FATHER Arthritis 19 MOTHER Asthma G8 BROTHER Cardiovascular disease G8 BROTHER (MURMUR) Diabetes mellitus 19 MOTHER Headache disorder G8 BROTHER Hypercholesterolemia 19 FATHER Hypertension 19 MOTHER Psychosocial problem 19 FATHER 19 MOTHER G8 BROTHER Respiratory disorder 19 MOTHER Severe allergy 19 MOTHER Visual disorder G8 BROTHER No Pertinent Family Hx Physical Exam Vital Signs Vital Signs - First Documented 11/25/22 13:25 Temp 36.4 Pulse 86 Resp 18 B/P (MAP) 124/68 (86) Pulse Ox 99 Capillary Refill : Less Than 3 Seconds Height, Weight, BMI Height: 5'2.00" Weight: 130lbs. 0oz. 58.117199ve; 24.00 BMI Method:Stated General Appearance: No Apparent Distress, WD/WN Eyes: Bilateral Eye Normal Inspection, Bilateral Eye PERRL, Bilateral Eye EOMI HEENT: PERRL/EOMI, TMs Normal, Normal ENT Inspection, Pharynx Normal Neck: Full Range of Motion, Normal Inspection, Non Tender, Supple Respiratory: Chest Non Tender, Lungs Clear, Normal Breath Sounds, No Accessory Muscle Use, No Respiratory Distress Cardiovascular: Regular Rate, Rhythm, No Edema, No Gallop, No JVD, No Murmur Gastrointestinal: Normal Bowel Sounds, No Organomegaly, No Pulsatile Mass, Non Tender Back: Normal Inspection, No CVA Tenderness Extremity: Normal Capillary Refill, Normal Inspection, Normal Range of Motion Neurologic/Psychiatric: Alert, Oriented x3, No Motor/Sensory Deficits, Normal Mood/Affect, family worker II-XII Norm as Tested Skin: Normal Color, Warm/Dry Progress/Results/Core Measures Suspected Sepsis SIRS Temperature: Pulse: 86 Respiratory Rate: 18 Blood Pressure 124 /68 Mean: 86 Results/Orders My Orders Orders - GILA VARGAS PA Ekg Tracing (11/25/22 13:36) Chest 1 View, Ap/Pa Only (11/25/22 13:36) Vital Signs/I&O 11/25/22 11/25/22 13:25 14:11 Temp 36.4 36.4 Pulse 86 86 Resp 18 18 B/P (MAP) 124/68 (86) 124/68 Pulse Ox 99 99 Capillary Refill : Less Than 3 Seconds Blood Pressure Mean: 86 ECG Comment Sinus rhythm, 68 bpm, QRS duration 93 MS, QTc 418 MS Departure Communication (PCP) Patient is a 31-year-old female who presents the ED left shoulder pain. History of pain secondary to an injury several years ago. Worsening pain over the past 2 weeks. Rating pain to the left side of breast. Increased anxiety having panic attacks at home. She is concern for arrhythmia versus breast cancer. On exam no palpable axilla nodule. 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 No breast tenderness. Stable vital signs. She does appear extremely anxious. She does report some numbness and tingling into the left upper arm. Normal strength. Negative Spurling sign. Due to her current complaint EKG chest x-ray was ordered. Low cardiac risk factors. Not necessarily concern for a cardiac event. EKG showed normal sinus rhythm without evidence of ST elevation or pression. Chest x-ray negative for pneumonia, pneumothorax. She is patient states she is relieved that her work-up was unremarkable. She feels much better. She is scheduled follow-up with [facility] on Sunday for further evaluation for breast cancer. Not able to get a mammogram or ultrasound at this time. This can be performed outpatient Aurelio. No evidence suggesting cardiac. Likely muscle versus radiculopathy type pain from her neck which appears to be more chronic however slight change with pain radiating to the left anterior shoulder and breast. She is not hypoxic or tachycardic. No recent travels or surgeries. Denies any leg pain. Anti-inflammatories for pain at home. She agrees a plan of action Impression Primary Impression: Anxiety Additional Impressions: Chest pain Shoulder pain Disposition: HOME, SELF-CARE Condition: Stable Departure-Patient Inst. Referrals: [facility] (PCP/Family) Primary Care Physician Patient Instructions: Shoulder Pain (DC) Add. Discharge Instructions: Follow-up with your [facility] on Sunday. Anti-inflammatories for pain. All discharge instructions reviewed with patient and/or family. Voiced understanding. GILA VARGAS Nov 25, 2022 13:39
--- NOTE | 2022-11-25 13:59 | Diagnostic Imaging Report ---
Clinical indications: Patient with left sided chest pain. EXAM: Portable chest x-ray upright view. COMPARISON: None. FINDINGS: Lungs/pleura: Lungs are clear. There is no pneumothorax. There is no pleural effusion. Mediastinum: Unremarkable. Pulmonary vasculature: Unremarkable. Heart: Unremarkable. Bones/extrathoracic soft tissue: Unremarkable. IMPRESSION: There is no radiographic evidence of acute cardiopulmonary process. Dictated by: Dictated on workstation # [id number]
[2022-11-25 14:11] VITALS: BP 124/68
== END 2022-11-25 14:11 | disposition home or self-care (01) ==
LOC: EDUNIT# 13:02 → ER 13:04
DX: M25.512 Pain in left shoulder (principal); G89.29 Other chronic pain; F41.9 Anxiety disorder, unspecified; R07.9 Chest pain, unspecified; Z79.899 Other long term (current) drug therapy
CPT/HCPCS: 71045; 93005